=== PATIENT | male | born 1970 | race African-American/Black ===

== ENCOUNTER 2016-07-06 16:15 | Observation (INO) | payer BC, OTHER ==
[~2016-07-06] VITALS: Ht 185.4 cm; Wt 120.8 kg
[~2016-07-06 16:15] MED LIST: ALBU1AER9 INH; ASPI81TA28 PO; ATOR-54 PO; BUPR-79 PO; CELE1CAP30 PO; CHOL1000 PO; GABA1CAP4 PO; GLC/500 PO; HYDR25TA5 PO; LISI40TA PO; MAGN400T6 PO; MONT1TAB3 PO; MULTTAB58 PO; NRV/10 PO; TRAM-10 PO
[2016-07-06 18:04] LABS: BASO % 0.4 %; BASO ABS # 0.02 K/uL (0-0.2); COMPLETE YES; EOS % 2.4 %; HEMATOCRIT 45.8 % (42-52); LYMPH % 44.7 %; LYMPH ABS # 2.25 K/uL (1.2-3.4); MEAN CELL VOLUME 81.5 fL (80-100); MEAN CORPUSCULAR HEMOGLOBIN 27.8 pg (25-34); MEAN CORPUSCULAR HGB CONC 34.1 g/dl (32-36); MEAN PLATELET VOLUME 11.6 fL (7.4-10.4); MONO % 12.9 %; NEUT % 39.6 %; PLATELET COUNT 146 K/uL (130-400); RED BLOOD COUNT 5.62 M/uL (4.7-6.1); WHITE BLOOD COUNT 5.03 K/uL (4.8-10.8)
[2016-07-06 18:17] LABS: PROTHROMBIN TIME (PATIENT) 10.7 SECONDS (9.0-12.0)
[2016-07-06] MEDS ORDERED: ALBU18002 INH (18:18)
[2016-07-06 18:22] LABS: BUN/CREATININE RATIO 15.3 (10-20); CALCIUM 9.3 mg/dl (8.5-10.1); CREATININE 1.3 mg/dl (0.60-1.40); POTASSIUM 3.7 mmol/L (3.5-5.1)
--- NOTE | 2016-07-06 18:47 | DIAGNOSTIC IMAGING REPORT ---
SINGLE VIEW CHEST CLINICAL HISTORY: Atypical chest pain. FINDINGS: 2 AP, portable, upright chest radiographs are compared to study dated 01/13/2015. The examination is degraded by portable technique and patient rotation. The heart is top normal for projection. The mediastinal contour is within normal limits. The lungs and pleural spaces are clear. No pneumothorax is seen. The bony thorax is grossly intact. IMPRESSION: No acute cardiopulmonary abnormality. Electronically signed by: Sourav Gates M.D. 07/06/2016 6:45 PM Dictated Date/Time: 07/06/2016 6:44 PM
[2016-07-06] MEDS ORDERED: CYCL10TA6 PO (19:23)
[2016-07-06] MEDS ORDERED: CETI10TA84 PO (19:23)
[2016-07-06] MEDS ORDERED: MECL1TAB42 PO (19:23)
--- NOTE | 2016-07-06 19:32 | History and Physical ---
History & Physical Date & Time of Service: Jul 06, 2016 at 19:31 . Chief Complaint: chest pain . Primary Care Physician: Denisse Jaquez . History of Present Illness Source: patient, clinic records, hospital records 46 YO male followed by Dr. Norman and Denisse Jaquez PA-C for Family Medicine. History of minimal CAD per cath 2008, hypertension, dyslipidemia, DM, and other problems noted below. Has been experiencing chest pressure + dyspnea on exertion for last month. Early this morning he experienced chest pain at rest. CP described as midsternal pressure that seemed to radiate towards both sides. Associated with SOB. No nausea or vomiting. He did not try any medications for relief. Symptoms lasted about 10 min. . Past Medical/Surgical History Chronic Medical Problems: (1) Asthma, mild intermittent Status: Chronic (2) Coronary artery disease Permanent Comment: minimal disease per cath [facility] 12/06/08 Status: Chronic (3) Depression Status: Chronic (4) DM type 2 (diabetes mellitus, type 2) Status: Chronic (5) Dyslipidemia Status: Chronic (6) HTN (hypertension) Status: Chronic (7) Multiple sclerosis Status: Chronic (8) Obesity (BMI 30-39.9) Status: Chronic (9) Osteoarthritis Status: Chronic Surgical Problems: (1) H/O arthroscopic knee surgery Status: Chronic (2) S/P cardiac cath Permanent Comment: 2008- minimal luminal irregularities LAD without obstructive disease Status: Chronic . Family History FATHER Hypertension CHF (congestive heart failure) MOTHER Hypertension MGM Stroke PGM Stroke Social History Smoking Status: Never Smoker Alcohol Use: occasionally Drug Use: none Marital Status: Housing status: lives with family Occupational Status: employed Immunizations History of Influenza Vaccine: N/A History of Tetanus Vaccine?: Unknown Tetanus Immunization Date: Sep 02, 2008 History of Pneumococcal: No History of Hepatitis B Vaccine: Yes Allergies Coded Allergies: No Known Allergies (Verified , NKA, 07/06/16) Home Medications Scheduled Amlodipine Besylate (Amlodipine Besylate), 10 MG PO DAILY Aspirin (Aspirin Ec), 81 MG PO DAILY Atorvastatin (Lipitor), 1 TAB PO DAILY Bupropion (Wellbutrin Sr), 150 MG PO BID Celecoxib (Celecoxib), 200 MG PO BID Cetirizine (Zyrtec), 10 MG PO DAILY Cholecalciferol (Vitamin D3), 1,000 UNIT PO DAILY Gabapentin (Gabapentin), 900 MG PO TID Hydrochlorothiazide (Hydrochlorothiazide), 25 MG PO DAILY Lisinopril (Zestril), 40 MG PO DAILY Magnesium Oxide (Mag-Ox), 400 MG PO DAILY Metformin Hcl (Glucophage), 500 MG PO BID Montelukast Sodium (Singulair), 10 MG PO QAM Scheduled PRN Albuterol Sulfate (Proair Respiclick), 2 PUFFS INH QID PRN for SOB/Wheezing Cyclobenzaprine Hcl (Flexeril), 10 MG PO HS PRN for Muscle Spasms Meclizine Hcl (Meclizine Hcl), 12.5-25 TAB PO TID PRN for Dizziness or Vertigo Tramadol (Ultram), 50 MG PO Q6H PRN for Pain Review of Systems Constitutional: No fever, No weight loss Eyes: + diplopia, + problem reported (chronic visual changes left eye attributed to MS) ENT: + nasal symptoms, No hearing loss, No sore throat Respiratory: + dyspnea on exertion, No cough, No wheezing Cardiovascular: + problem reported (as noted above) Abdomen: No GI bleeding, No diarrhea, No nausea, No pain, No vomiting Musculoskeletal: + joint pain Genitourinary - Male: No dysuria, No hematuria Neurologic: + weakness (weakness LLE attributed to MS) Endocrine: No excessive thirst, No excessive urination Hematologic / Lymphatic: No abnormal bleeding/bruising, No swollen lymph nodes Integumentary: No itch, No new/changing skin lesions, No rash Physical Exam Vital Signs Date Time Temp Pulse Resp B/P Pulse Ox O2 Delivery O2 Flow Rate FiO2 07/06/16 18:40 58 18 151/106 95 Room Air 07/06/16 17:41 64 07/06/16 17:35 94 Room Air 07/06/16 17:21 58 16 149/94 94 Room Air 07/06/16 17:21 94 Room Air 07/06/16 16:31 36.7 64 18 171/122 95 Room Air General Appearance: WD/WN, no apparent distress Head: normocephalic, atraumatic Eyes: normal inspection, PERRL, EOMI, sclerae normal, + pertinent finding ( conjunctivae pink) ENT: normal ENT inspection, hearing grossly normal, pharynx normal Neck: supple, no adenopathy, thyroid normal, no JVD, trachea midline Respiratory/Chest: lungs clear, no respiratory distress, no accessory muscle use Cardiovascular: regular rate, rhythm, no edema, no gallop, no JVD, no murmur, normal peripheral pulses Abdomen/GI: normal bowel sounds, non tender, soft, no organomegaly Extremities/Musculoskelatal: normal inspection, no calf tenderness, normal capillary refill Neurologic/Psych: electric relay tester II-XII nml as tested (PERRL, EOMI), alert, normal mood/ affect, oriented x 3 Skin: normal color, warm/dry, no rash Lymphatic: no adenopathy Diagnostics Laboratory Results Results Past 24 Hours Test 07/06/16 17:49 07/06/16 17:58 Range/Units White Blood Count 5.03 4.8-10.8 K/uL Red Blood Count 5.62 4.7-6.1 M/uL Hemoglobin 15.6 14.0-18.0 g/dL Hematocrit 45.8 42-52 % Mean Corpuscular Volume 81.5 80-100 fL Mean Corpuscular Hemoglobin 27.8 25-34 pg Mean Corpuscular Hemoglobin Concent 34.1 32-36 g/dl Platelet Count 146 130-400 K/uL Mean Platelet Volume 11.6 7.4-10.4 fL Neutrophils (%) (Auto) 39.6 % Lymphocytes (%) (Auto) 44.7 % Monocytes (%) (Auto) 12.9 % Eosinophils (%) (Auto) 2.4 % Basophils (%) (Auto) 0.4 % Neutrophils # (Auto) 1.99 1.4-6.5 K/uL Lymphocytes # (Auto) 2.25 1.2-3.4 K/uL Monocytes # (Auto) 0.65 0.11-0.59 K/uL Eosinophils # (Auto) 0.12 0-0.5 K/uL Basophils # (Auto) 0.02 0-0.2 K/uL RDW Standard Deviation 42.3 36.4-46.3 fL RDW Coefficient of Variation 14.3 11.5-14.5 % Immature Granulocyte % (Auto) 0.0 % Immature Granulocyte # (Auto) 0.00 0.00-0.02 K/uL Prothrombin Time 10.7 9.0-12.0 SECONDS Prothromb Time International Ratio 1.0 0.9-1.1 Activated Partial Thromboplast Time 25.0 21.0-31.0 SECONDS Partial Thromboplastin Ratio 1.0 Sodium Level 142 136-145 mmol/L Potassium Level 3.7 3.5-5.1 mmol/L Chloride Level 104 98-107 mmol/L Carbon Dioxide Level 30 21-32 mmol/L Anion Gap 8.0 3-11 mmol/L Blood Urea Nitrogen 20 7-18 mg/dl Creatinine 1.30 0.60-1.40 mg/dl Est Creatinine Clear Calc Drug Dose 103.1 ml/min Estimated GFR () 75.8 Estimated GFR (Non- 65.4 BUN/Creatinine Ratio 15.3 10-20 Random Glucose 69 70-99 mg/dl Calcium Level 9.3 8.5-10.1 mg/dl Bedside Troponin I 0.000 0-0.045 ng/ml Diagnostic Radiology SINGLE VIEW CHEST IMPRESSION: No acute cardiopulmonary abnormality. Electronically signed by: Sourav Gates M.D. 07/06/2016 6:45 PM . EKG EKG performed at 16:34 reviewed and demonstrated NSR at 70 / minute, no acute ST or T-wave abnormalities. . Impression Assessment and Plan CHEST PAIN Exertional CP + dyspnea x 1 month. CP at rest this morning. Multiple risk factors for cardiovascular disease. Cardiac cath 2008 demonstrated minimal CAD. Check serial cardiac markers. Consult Cardiology. HYPERTENSION Continue amlodipine, lisinopril, HCTZ. DM TYPE 2 Well-controlled. Check Hgb A1-C. Hold metformin. Insulin coverage PRN. DYSLIPIDEMIA Check lipid profile. Continue atorvastatin. MULTIPLE SCLEROSIS Stable. Follow-up with Neuro. VTE PROPHYLAXIS SQ enoxaparin. RESUSCITATION STATUS Full code. DISPOSITION Observation status on Telemetry Unit. Expected discharge to home. Family Medicine follow-up with Dr. Norman. . VTE Prophylaxis Given or contraindicated: Enoxaparin (Lovenox)SQ
[2016-07-06] MEDS ORDERED: ACETAMINOPHEN 325 MG TAB PO PRN (19:45)
[2016-07-06] MEDS ORDERED: NITROGLYCERIN 0.4 MG SL PER TAB CHARGE SL PRN (19:45)
[2016-07-06] MEDS ORDERED: MAGNESIUM HYDROXIDE SUSP 30 ML UDC PO PRN (19:45)
[2016-07-06] MEDS ORDERED: ONDANSETRON INJ 2 MG/ML 2 ML VIAL IV PRN (19:45)
[2016-07-06] MEDS ORDERED: ENOXAPARIN 40 MG/0.4 ML SYR SC SCH (21:00)
[2016-07-06] MEDS ORDERED: IV FLUIDS COMPLETED PRN (21:00)
[2016-07-06] MEDS ORDERED: TRAMADOL HCL 50 MG TAB PO PRN (21:30)
[2016-07-06] MEDS ORDERED: MECLIZINE HCL 12.5 MG TAB PO PRN (21:30)
[2016-07-06] MEDS ORDERED: ASPIRIN 81 MG CHEW PO STA (21:35)
[2016-07-06 22:04] VITALS: BP_SYST 137; BP_SYST 153; BP_DIAS 87; BP_DIAS 94
[2016-07-06] MEDS: NITROGLYCERIN OINT 2% 1GM PACKET EXT SCH (22:39)
[2016-07-07] VITALS (7 sets, daily range): BP systolic 104–169; BP diastolic 46–94; PULSE 54–70; TEMP 36.5–36.7; O2SAT 94–98; Ht 185.4 cm; Wt 120.8 kg
--- NOTE | 2016-07-07 00:59 | EMERGENCY ROOM VISIT NOTE ---
History Report prepared by Denice: Tori Teran Under the Supervision of: Dr. Best Ramírez M.D. First contact with patient: 17:22 Chief Complaint: CARDIAC ASSESSMENT Stated Complaint: MS, BEAR/TUG FEELING, FATIGUE Nursing Triage Summary: recently diagnosed with MS nov, last night he awoke and felt like something was squeezing his chest, pt was unable to move for 5-10 mins, called neurologist office and was told that it was an "MS Bear Hug" pt neurologist is Dr Collins, sent pt to er History of Present Illness The patient is a 46 year old male who presents to the Emergency Room with complaints of an episode of central chest pain that occurred at 3AM this morning. The patient describes the pain as a pressure and states that he was short of breath during the episode. His symptoms lasted about 10 minutes before resolving. The patient states that he has been getting some chest discomfort with exertion, especially walking up the stairs at work, for the past several months. The discomfort does not last long. Per , he has had a few cardiac work-ups in the past, most recently about 3 years ago. He has not had any recent stress tests. Today, the patient's called Dr. Collins's office regarding his symptoms. The patient was diagnosed with MS this past April and was told to call the office if he ever had a bear hugging sensation in his chest. The patient was referred to the emergency room and said to have the physician seeing him to constant Dr. Collins. He is not currently on steroids for MS. The patient has some left leg discomfort which has been present since his MS diagnosis, but denies any new swelling. Denies fever, diaphoresis, cold- symptoms, abdominal pain, or other complaints. Past medical history includes diabetes and hypertension. He does not have a history of smoking. The patient's father has a history of heart disease and likely had heart disease around the patient's age, although he was not diagnosed until later in his life because he was not seeing a doctor regularly. Source of History: patient, spouse/significant other Onset: 3AM this morning Position: chest (central) Quality: pressure Timing: other (episode) Associated Symptoms: + SOB, No abdominal pain, No diaphoresis, No fevers Review of Systems See HPI for pertinent positives & negatives. A total of 10 systems reviewed and were otherwise negative. Past Medical & Surgical Medical Problems: (1) Asthma, mild intermittent (2) Chest pain (3) Depression (4) DM type 2 (diabetes mellitus, type 2) (5) Dyslipidemia (6) HTN (hypertension) (7) Multiple sclerosis (8) Nonobstructive CAD (9) Obesity (BMI 30-39.9) (10) Osteoarthritis Surgical Problems: (1) H/O arthroscopic knee surgery (2) S/P cardiac cath Family History Cancer Diabetes mellitus Heart disease Hypertension Lung disease Social History Smoking Status: Never Smoker Alcohol Use: occasionally Drug Use: none Marital Status: Housing Status: lives with family Occupation Status: employed Current/Historical Medications Scheduled Amlodipine Besylate (Amlodipine Besylate), 10 MG PO DAILY Aspirin (Aspirin Ec), 81 MG PO DAILY Atorvastatin (Lipitor), 1 TAB PO DAILY Bupropion (Wellbutrin Sr), 150 MG PO BID Celecoxib (Celecoxib), 200 MG PO BID Cetirizine (Zyrtec), 10 MG PO DAILY Cholecalciferol (Vitamin D3), 1,000 UNIT PO DAILY Gabapentin (Gabapentin), 900 MG PO TID Hydrochlorothiazide (Hydrochlorothiazide), 25 MG PO DAILY Lisinopril (Zestril), 40 MG PO DAILY Magnesium Oxide (Mag-Ox), 400 MG PO DAILY Metformin Hcl (Glucophage), 500 MG PO BID Montelukast Sodium (Singulair), 10 MG PO QAM Scheduled PRN Albuterol Sulfate (Proair Respiclick), 2 PUFFS INH QID PRN for SOB/Wheezing Cyclobenzaprine Hcl (Flexeril), 10 MG PO HS PRN for Muscle Spasms Meclizine Hcl (Meclizine Hcl), 12.5-25 TAB PO TID PRN for Dizziness or Vertigo Tramadol (Ultram), 50 MG PO Q6H PRN for Pain Allergies Coded Allergies: No Known Allergies (Verified , NKA, 07/06/16) Physical Exam Vital Signs Date Time Temp Pulse Resp B/P Pulse Ox O2 Delivery O2 Flow Rate FiO2 07/06/16 18:40 58 18 151/106 95 Room Air 07/06/16 17:41 64 07/06/16 17:35 94 Room Air 07/06/16 17:21 58 16 149/94 94 Room Air 07/06/16 17:21 94 Room Air 07/06/16 16:31 36.7 64 18 171/122 95 Room Air Physical Exam Constitutional: Vital signs reviewed. Eyes: Pupils are equal round reactive to light. Conjunctiva are noninjected. ENT: Pharynx is clear without erythema or exudate. Mucous membranes are moist. Neck supple without meningeal signs. Respiratory: Clear to auscultation bilaterally. Breath sounds are equal bilaterally. Cardiovascular: Regular rate and rhythm. No rubs or gallops. GI: Soft, nondistended and nontender. Bowel sounds are present. Musculoskeletal: No peripheral edema. No lower extremity tenderness. Integumentary: No cyanosis. Neurological: The patient is awake and alert. No focal deficits. Psychiatric: Normal affect. Medical Decision & Procedures ER Provider Diagnostic Interpretation: X-ray results as stated below per interpretation by me and the radiologist: SINGLE VIEW CHEST CLINICAL HISTORY: Atypical chest pain. FINDINGS: 2 AP, portable, upright chest radiographs are compared to study dated 01/13/2015. The examination is degraded by portable technique and patient rotation. The heart is top normal for projection. The mediastinal contour is within normal limits. The lungs and pleural spaces are clear. No pneumothorax is seen. The bony thorax is grossly intact. IMPRESSION: No acute cardiopulmonary abnormality. Electronically signed by: Sourav Gates M.D. 07/06/2016 6:45 PM Dictated Date/Time: 07/06/2016 6:44 PM Laboratory Results 07/06/16 17:49 Red Blood Count 5.62, Mean Corpuscular Volume 81.5, Mean Corpuscular Hemoglobin 27.8, Mean Corpuscular Hemoglobin Concent 34.1, Mean Platelet Volume 11.6, Neutrophils (%) (Auto) 39.6, Lymphocytes (%) (Auto) 44.7, Monocytes (%) (Auto) 12.9, Eosinophils (%) (Auto) 2.4, Basophils (%) (Auto) 0.4, Neutrophils # (Auto ) 1.99, Lymphocytes # (Auto) 2.25, Monocytes # (Auto) 0.65, Eosinophils # (Auto ) 0.12, Basophils # (Auto) 0.02 07/06/16 17:49 Test 07/06/16 17:49 07/06/16 17:58 White Blood Count 5.03 K/uL (4.8-10.8) Red Blood Count 5.62 M/uL (4.7-6.1) Hemoglobin 15.6 g/dL (14.0-18.0) Hematocrit 45.8 % (42-52) Mean Corpuscular Volume 81.5 fL (80-100) Mean Corpuscular Hemoglobin 27.8 pg (25-34) Mean Corpuscular Hemoglobin Concent 34.1 g/dl (32-36) Platelet Count 146 K/uL (130-400) Mean Platelet Volume 11.6 fL (7.4-10.4) Neutrophils (%) (Auto) 39.6 % Lymphocytes (%) (Auto) 44.7 % Monocytes (%) (Auto) 12.9 % Eosinophils (%) (Auto) 2.4 % Basophils (%) (Auto) 0.4 % Neutrophils # (Auto) 1.99 K/uL (1.4-6.5) Lymphocytes # (Auto) 2.25 K/uL (1.2-3.4) Monocytes # (Auto) 0.65 K/uL (0.11-0.59) Eosinophils # (Auto) 0.12 K/uL (0-0.5) Basophils # (Auto) 0.02 K/uL (0-0.2) RDW Standard Deviation 42.3 fL (36.4-46.3) RDW Coefficient of Variation 14.3 % (11.5-14.5) Immature Granulocyte % (Auto) 0.0 % Immature Granulocyte # (Auto) 0.00 K/uL (0.00-0.02) Prothrombin Time 10.7 SECONDS (9.0-12.0) Prothromb Time International Ratio 1.0 (0.9-1.1) Activated Partial Thromboplast Time 25.0 SECONDS (21.0-31.0) Partial Thromboplastin Ratio 1.0 Anion Gap 8.0 mmol/L (3-11) Est Creatinine Clear Calc Drug Dose 103.1 ml/min Estimated GFR () 75.8 Estimated GFR (Non- 65.4 BUN/Creatinine Ratio 15.3 (10-20) Calcium Level 9.3 mg/dl (8.5-10.1) Bedside Troponin I 0.000 ng/ml (0-0.045) Laboratory results as reviewed by me. ECG Indication: chest pain Rate (beats per minute): 67 Rhythm: normal sinus Findings: other (some T wave inversion and ST segment downsloping in lead 3) Comparison ECG Date: January 2012 Change: no significant change ED Course 1724: The patient was evaluated in room A10. A complete history and physical exam was performed. 1734: I discussed the case with Dr. Karina Naidu Neurology. He agrees that it does not sound MS related. 1824: I talked to the patient ab out his test results and the treatment plan. He was agreeable. 1917: I discussed the case with Dr. Stepan Naidu Hospitalist. The patient will be evaluated for further management. Medical Decision This is a 46-year-old male presents with chest pain. Differential diagnosis includes unstable angina, NC, pleurisy, GERD, MS hug. I did perform a limited focused review of portions of the patient's old chart on the electronic medical record. The patient has had no recent pertinent visits to this hospital. I did evaluate the patient as noted above. Patient is presenting with chest pain he describes as pressure in the middle of his chest. He is short of breath with it. He has had it with exertion over the past several months. His symptoms do not sound like an MS hug as he does not have symptoms radial around his thorax. He does have significant cardiac risk factors. Currently he is not having any chest discomfort. IV access was established. The patient was placed on a continuous campus monitor. I did order and personally review the patient's 12-lead EKG and chest x-ray as described above. I did order and review the patient's blood work as noted in the electronic medical record. Troponin is negative. I did discuss the test results with the patient. I did discuss the case with Dr. Collins who agreed with me that his symptoms seem more cardiac than related to his MS. I did recommend hospitalization for repeat cardiac enzymes and further workup. I did discuss case with the hospitalist and rn field case manager. Consults Time Called: 1730 Consulting Physician: Dr. Karina Naidu Neurology Returned Call: 1734 I discussed the case with him. He agrees that it does not sound MS related. Additional Consults: Time Called: 1824 Consulted Physician: Dr. Stepan Naidu Hospitalist Returned Call: 1917 Additional Comments: I discussed the case with him. The patient will be evaluated for further management. Impression Primary Impression: Exertional chest pain Scribe Attestation The scribe's documentation has been prepared under my direct and personally reviewed by me in its entirety. I confirm that the note above accurately reflects all work, treatment, procedures, and medical decision making performed by me. Departure Information Dispostion Being Evaluated By Hospitalist Referrals Denisse Jaquez (PCP) Patient Instructions My [facility]
[2016-07-07] MEDS: NITROGLYCERIN OINT 2% 1GM PACKET EXT SCH ×3 (04:26→14:59)
[2016-07-07 06:39] LABS: BLOOD UREA NITROGEN 21 mg/dl (7-18); BUN/CREATININE RATIO 17.1 (10-20); CALCIUM 8.9 mg/dl (8.5-10.1); CARBON DIOXIDE 29 mmol/L (21-32); CHLORIDE 105 mmol/L (98-107); GLUCOSE 86 mg/dl (70-99); POTASSIUM 3.5 mmol/L (3.5-5.1); SODIUM 142 mmol/L (136-145)
[2016-07-07 06:44] LABS: CHOLESTEROL 137 mg/dl (0-200); CHOLESTEROL/HDL RATIO 3.4; HDL CHOLESTEROL 40 mg/dl; LDL CHOLESTEROL CALCULATED 71 mg/dl; TRIGLYCERIDES 128 mg/dl (0-150); VERY LOW DENSITY LIPOPROT CALC 26 mg/dl
[2016-07-07 07:00] LABS: ESTIMATED AVERAGE GLUCOSE 126 mg/dl; HA1C FLAG Normal (Normal)
[2016-07-07] MEDS: GABAPENTIN 300 MG CAP PO SCH ×2 (08:09→15:00)
[2016-07-07] MEDS ORDERED: ATORVASTATIN 20 MG TAB PO SCH (09:00)
[2016-07-07] MEDS ORDERED: BuPROPion SR 150 MG TABCR PO SCH (09:00)
[2016-07-07] MEDS ORDERED: HYDROCHLOROTHIAZIDE 25 MG TAB PO SCH (09:00)
[2016-07-07] MEDS ORDERED: AMLODIPINE BESYLATE 5 MG TAB PO SCH (09:00)
[2016-07-07] MEDS ORDERED: LISINOPRIL 40 MG TAB PO SCH (09:00)
[2016-07-07] MEDS ORDERED: ASPIRIN 81 MG ECTAB PO SCH (09:00)
[2016-07-07] MEDS ORDERED: MONTELUKAST SOD 10 MG TAB PO SCH (09:00)
[2016-07-07] MEDS ORDERED: MAGNESIUM OXIDE 400 MG TAB PO SCH (09:00)
[2016-07-07] MEDS ORDERED: CETIRIZINE HCL 10 MG TAB PO SCH (09:00)
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
[2016-07-07] MEDS ORDERED: PERFLUTREN LIPID MICROSPHERE (DEFINITY) IV ONE (16:01)
--- NOTE | 2016-07-07 16:56 | Progress Note ---
Internal Med Progress Note Date of Service: Jul 07, 2016. Provider Documentation: SUBJECTIVE: Patient is lying in his bed and is in no apparent distress. Remains chest pain free. No SOB. No other new change or complaint. so far. OBJECTIVE: Vital Signs-as noted below Examination: General Appearance: WD/WN, Lying in his and is in no apparent distress Head: normocephalic, atraumatic Eyes: normal inspection, PERRL, EOMI, sclerae normal, ENT: normal ENT inspection, hearing grossly normal, pharynx normal Neck: supple, no adenopathy, thyroid normal, no JVD, trachea midline Respiratory/Chest: lungs clear, no respiratory distress, no accessory muscle use Cardiovascular: regular rate, rhythm, no edema, no gallop, no JVD, no murmur, normal peripheral pulses Abdomen/GI: normal bowel sounds, non tender, soft, no organomegaly Extremities/Musculoskeletal: normal inspection, no calf tenderness, normal capillary refill 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 ASSESSMENT & PLAN: Chest Pain R/O ACS: Exertional CP + dyspnea x 1 month.has multiple cardiac risk factors. Cardiac cath 2008 demonstrated minimal CAD. -Serial Cardiac enzymes are negative so far -Consult Cardiology reviewed. -Will undergo Stress Echo. Hypertension: BP has been stable. -Continue amlodipine, lisinopril, HCTZ. Diabetes Type II: Well-controlled. -Hgb A1-C is 6.0. -Holding metformin. -Insulin coverage PRN. Dyslipidemia: lipid profile shows HDL 2.0 & LDL 71.. -Continue atorvastatin. Multiple Sclerosis: Stable. -Follow-up with Neuro. VTE Prophylaxis: Sq Lovenox. RESUSCITATION STATUS: Full Code. Disposition: Observation status on Telemetry Unit. Expected discharge to home. Family Medicine follow-up with Dr. Norman. . Vital Signs: Date Time Temp Pulse Resp B/P Pulse Ox O2 Delivery O2 Flow Rate FiO2 07/07/16 16:00 Room Air 07/07/16 12:00 Room Air 07/07/16 11:36 36.5 70 24 122/77 94 Room Air 07/07/16 08:00 Room Air 07/07/16 07:52 36.5 54 20 123/74 97 Room Air 07/07/16 04:35 36.6 65 18 104/68 95 Room Air 104/46 07/07/16 04:33 120/84 122/84 07/07/16 04:00 Room Air 07/07/16 00:33 36.5 57 16 169/94 98 Room Air 147/89 07/07/16 00:27 36.7 57 18 160/88 97 Room Air 141/88 07/07/16 00:00 Room Air 07/06/16 22:04 137/87 153/94 07/06/16 20:30 59 18 151/114 96 07/06/16 18:40 58 18 151/106 95 Room Air 07/06/16 17:41 64 07/06/16 17:35 94 Room Air 07/06/16 17:21 58 16 149/94 94 Room Air 07/06/16 17:21 94 Room Air Lab Results: Results Past 24 Hours Test 07/06/16 17:49 07/06/16 17:58 07/07/16 00:01 07/07/16 05:46 Range/Units White Blood Count 5.03 4.8-10.8 K/uL Red Blood Count 5.62 4.7-6.1 M/uL Hemoglobin 15.6 14.0-18.0 g/dL Hematocrit 45.8 42-52 % Mean Corpuscular Volume 81.5 80-100 fL Mean Corpuscular Hemoglobin 27.8 25-34 pg Mean Corpuscular Hemoglobin Concent 34.1 32-36 g/dl Platelet Count 146 130-400 K/uL Mean Platelet Volume 11.6 7.4-10.4 fL Neutrophils (%) (Auto) 39.6 % Lymphocytes (%) (Auto) 44.7 % Monocytes (%) (Auto) 12.9 % Eosinophils (%) (Auto) 2.4 % Basophils (%) (Auto) 0.4 % Neutrophils # (Auto) 1.99 1.4-6.5 K/uL Lymphocytes # (Auto) 2.25 1.2-3.4 K/uL Monocytes # (Auto) 0.65 0.11-0.59 K/uL Eosinophils # (Auto) 0.12 0-0.5 K/uL Basophils # (Auto) 0.02 0-0.2 K/uL RDW Standard Deviation 42.3 36.4-46.3 fL RDW Coefficient of Variation 14.3 11.5-14.5 % Immature Granulocyte % (Auto) 0.0 % Immature Granulocyte # (Auto) 0.00 0.00-0.02 K/uL Prothrombin Time 10.7 9.0-12.0 SECONDS Prothromb Time International Ratio 1.0 0.9-1.1 Activated Partial Thromboplast Time 25.0 21.0-31.0 SECONDS Partial Thromboplastin Ratio 1.0 Sodium Level 142 142 136-145 mmol/L Potassium Level 3.7 3.5 3.5-5.1 mmol/L Chloride Level 104 105 98-107 mmol/L Carbon Dioxide Level 30 29 21-32 mmol/L Anion Gap 8.0 8.0 3-11 mmol/L Blood Urea Nitrogen 20 21 7-18 mg/dl Creatinine 1.30 1.20 0.60-1.40 mg/dl Est Creatinine Clear Calc Drug Dose 103.1 104.7 ml/min Estimated GFR () 75.8 83.5 Estimated GFR (Non- 65.4 72.1 BUN/Creatinine Ratio 15.3 17.1 10-20 Random Glucose 69 86 70-99 mg/dl Calcium Level 9.3 8.9 8.5-10.1 mg/dl Bedside Troponin I 0.000 0-0.045 ng/ml Troponin I < 0.015 < 0.015 0-0.045 ng/ml Estimated Average Glucose 126 mg/dl Hemoglobin A1c 6.0 4.5-5.6 % Triglycerides Level 128 0-150 mg/dl Cholesterol Level 137 0-200 mg/dl HDL Cholesterol 40 mg/dl LDL Cholesterol, Calculated 71 mg/dl VLDL Cholesterol, Calculated 26 mg/dl Cholesterol/HDL Ratio 3.4 Test 07/07/16 13:15 Range/Units Troponin I < 0.015 0-0.045 ng/ml
--- NOTE | 2016-07-07 18:16 | Discharge Instructions ---
Discharge Instructions Admission Reason for Admission: Chest Pain Discharge Discharge Diagnosis / Problem: Non- Cardiac Chest Pain Discharge Goals Goal(s): Decrease discomfort, Improve function, Increase independence, Improve disease control, Improve nutritional status, Learn about illness, Diagnostic testing, Therapeutic intervention Activity Recommendations Activity Limitations: resume your previous activity (As Tolerated) Exercise/Sports Limitations: as tolerated May Resume Sexual Activity: when tolerated Shower/Bathe: no limitations Driving or Machine Use: no limitations . Instructions / Follow-Up Instructions / Follow-Up Monitor your blood sugar regularly. Low salt diet. Try to lose weight Follow up with PCP in one week. Current Hospital Diet Patient's current hospital diet: AHA Diet (Heart Healthy), Diabetes Type 2 Diet Discharge Diet Recommended Diet: AHA Diet (Heart Healthy), Diabetes Type 2 Diet Pending Studies Studies pending at discharge: no Laboratory Results Hemoglobin A1c Test 07/07/16 05:46 Range/Units Estimated Average Glucose 126 mg/dl Hemoglobin A1c 6.0 H 4.5-5.6 % Lipid Panel Test 07/07/16 05:46 Range/Units Triglycerides Level 128 0-150 mg/dl Cholesterol Level 137 0-200 mg/dl HDL Cholesterol 40 mg/dl Cholesterol/HDL Ratio 3.4 LDL Cholesterol, Calculated 71 mg/dl Medical Emergencies . Who to Call and When: Medical Emergencies: If at any time you feel your situation is an emergency, please call 911 immediately. . Non-Emergent Contact Non-Emergency issues call your: Primary Care Provider . . "Provider Documentation" section prepared by Avila Parrish. VTE Core Measure Inpt VTE Proph given/why not?: Enoxaparin (Lovenox)SQ
--- NOTE | 2016-07-07 18:18 | Discharge Summary ---
Discharge Summary Admission Date: Jul 06, 2016 at 19:37 Discharge Date: Jul 07, 2016 Discharge Disposition: Home Principal Diagnosis: Non-cardiac Chest pain Secondary Diagnoses/Problems: Diabetes Multiple Sclerosis Hypertension Procedures: Stress Test---> Normal Vaccinations: NONE Consultations: Cardiology Pending Studies/Follow-Up: Follow up with PCP regarding management of HTN Medication Reconciliation Continued Medications: Albuterol Sulfate (Proair Respiclick) 108 Mcg/Act Aer 2 PUFFS INH QID PRN for SOB/Wheezing Amlodipine Besylate (Amlodipine Besylate) 10 Mg Tab 10 MG PO DAILY, #30 Aspirin (Aspirin Ec) 81 Mg Tab 81 MG PO DAILY Atorvastatin (Lipitor) 20 Mg Tab 1 TAB PO DAILY for 90 Days, #90 TAB 1 Refill Bupropion (Wellbutrin Sr) 150 Mg Ertab 150 MG PO BID, TAB Celecoxib (Celecoxib) 200 Mg Cap 200 MG PO BID, #60 Cetirizine (Zyrtec) 10 Mg Tab 10 MG PO DAILY, TAB Cholecalciferol (Vitamin D3) 1,000 Unit Tab 1000 UNIT PO DAILY for 30 Days, #3 TAB 5 Refills Cyclobenzaprine Hcl (Flexeril) 10 Mg Tab 10 MG PO HS PRN for Muscle Spasms, #21 TAB Gabapentin (Gabapentin) 300 Mg Cap 900 MG PO TID, #120 Hydrochlorothiazide (Hydrochlorothiazide) 25 Mg Tab 25 MG PO DAILY, #30 Lisinopril (Zestril) 40 Mg Tab 40 MG PO DAILY, TAB Magnesium Oxide (Mag-Ox) 400 Mg Tab 400 MG PO DAILY, TAB Meclizine Hcl (Meclizine Hcl) 25 Mg Tab 12.5-25 TAB PO TID PRN for Dizziness or Vertigo for 10 Days, TAB Metformin Hcl (Glucophage) 500 Mg Tab 500 MG PO BID, TAB Montelukast Sodium (Singulair) 10 Mg Tab 10 MG PO QAM, TAB Tramadol (Ultram) 50 Mg Tab 50 MG PO Q6H PRN for Pain, TAB Admission Information HPI (per Admitting provider): 46 YO male followed by Dr. Norman and Denisse Jaquez PA-C for Family Medicine. History of minimal CAD per cath 2008, hypertension, dyslipidemia, DM, and other problems noted below. Has been experiencing chest pressure + dyspnea on exertion for last month. Early this morning he experienced chest pain at rest. CP described as midsternal pressure that seemed to radiate towards both sides. Associated with SOB. No nausea or vomiting. He did not try any medications for relief. Symptoms lasted about 10 min. . Physical Exam (per Admitting): General Appearance: WD/WN, no apparent distress Head: normocephalic, atraumatic Eyes: normal inspection, PERRL, EOMI, sclerae normal, + pertinent finding ( conjunctivae pink) ENT: normal ENT inspection, hearing grossly normal, pharynx normal Neck: supple, no adenopathy, thyroid normal, no JVD, trachea midline Respiratory/Chest: lungs clear, no respiratory distress, no accessory muscle use Cardiovascular: regular rate, rhythm, no edema, no gallop, no JVD, no murmur , normal peripheral pulses Abdomen/GI: normal bowel sounds, non tender, soft, no organomegaly Extremities/Musculoskelatal: normal inspection, no calf tenderness, normal capillary refill 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 Cardiac cath 2008 demonstrated minimal CAD. -Serial Cardiac enzymes are negative so far -Consult Cardiology reviewed. -Will undergo Stress Echo. Hypertension: BP has been stable. -Continue amlodipine, lisinopril, HCTZ. Diabetes Type II: Well-controlled. -Hgb A1-C is 6.0. -Holding metformin. -Insulin coverage PRN. Dyslipidemia: lipid profile shows HDL 2.0 & LDL 71.. -Continue atorvastatin. Multiple Sclerosis: Stable. -Follow-up with Neuro. VTE Prophylaxis: Sq Lovenox. RESUSCITATION STATUS: Full Code. Disposition: Observation status on Telemetry Unit. Expected discharge to home. Family Medicine follow-up with Dr. Norman. . Total time spent on discharge = 35 minutes. This includes examination of the patient, discharge planning, medication reconciliation, and communication with other providers. Discharge Instructions Discharge Goals Goal(s): Decrease discomfort, Improve function, Increase independence, Improve disease control, Improve nutritional status, Learn about illness, Diagnostic testing, Therapeutic intervention Activity Recommendations Activity Limitations: resume your previous activity (As Tolerated) Exercise/Sports Limitations: as tolerated May Resume Sexual Activity: when tolerated Shower/Bathe: no limitations Driving or Machine Use: no limitations . Instructions / Follow-Up Instructions / Follow-Up Monitor your blood sugar regularly. Low salt diet. Try to lose weight Follow up with PCP in one week. Current Hospital Diet Patient's current hospital diet: AHA Diet (Heart Healthy), Diabetes Type 2 Diet Discharge Diet Recommended Diet: AHA Diet (Heart Healthy), Diabetes Type 2 Diet Additional Copies To Denisse Jaquez
--- NOTE | 2016-07-07 19:15 | EXERCISE STRESS ECHO ---
*NOTICE TO RECEIVING DEMOCRAT AGENCY This information is strictly Confidential and protected under [place] law. [place] law prohibits you from making any further disclosure of this information unless further disclosure is expressly permitted by the written consent of the person to whom it pertains or is authorized by law. A general authorization for the release of medical or other information is not sufficient for this purpose. Hospital accepts no responsibility if the information is made available to any other person, INCLUDING THE PATIENT. Interpretation Summary * Name: DANI CHIRINOS Study Date: 07/07/2016 03:18 PM BP: 125/88 mmHg * Patient Location: .2E\S\E206\S\1 HR: 107 * : 1970 (M/d/yyyy) Gender: Male Height: 72 in * Age: 46 yrs Ethnicity: AA Weight: 266 lb * Ordering Physician: Best Catherine * Referring Physician: Jamie Collins (MEDICINE) * Performed By: Mignon Hammer RDCS * * Reason For Study: Chest Pain * BSA: 2.4 m2 * The exercise echocardiographic examination is normal without resting left ventricular wall motion abnormalities or inducible ischemia. * Exercise capacity is below average. * -- Conclusions -- * Left ventricular systolic function is normal. * Ejection Fraction = 60-65%. * There is moderate concentric left ventricular hypertrophy. * Resting wall motion: Normal. Stress wall motion: Appropriate increase in Left ventricular systolic function and decrease in cavity size. No stress induced segmental wall motion abnormalities. * Grade I diastolic dysfunction, (abnormal relaxation pattern). * No significant valvular pathology. Procedure Details * ECHOEX, CPT #[id number] * ECHO DOPPLER, CPT #[id number] * ECHO COLOR FLOW, CPT #[id number] * A contrast injection of Definity was performed to improve assessment of LV function. * Contrast was injected into an intravenous site in the right arm. * One vial of Definity ultrasound contrast was diluted in normal saline to a total volume of 10 ml. A total of '4' ml of solution was administered during imaging. * Lot # [id number] of Definity utilized for procedure. * Expiration date 1DEC17. * The attending nurse who injected the contrast agent was MYRIAM Vogel. Left Ventricle * The left ventricle is normal in size. * There is moderate concentric left ventricular hypertrophy. * Ejection Fraction = 60-65%. * Left ventricular systolic function is normal. * Resting wall motion: Normal. Stress wall motion: Appropriate increase in Left ventricular systolic function and decrease in cavity size. No stress induced segmental wall motion abnormalities. * The left ventricular ejection fraction increases normally with stress. The left ventricular end-systolic cavity size reduces post-stress (normal response). The left ventricular wall motion with stress is normal. Right Ventricle * The right ventricle is normal in size and function. Atria * The left atrial size is normal. * Right atrial size is normal. * No ASD detected; PFO is not assessed. Mitral Valve * The mitral valve is normal. * There is no mitral valve stenosis. * Significant mitral regurgitation is absent. Tricuspid Valve * The tricuspid valve is normal. * There is no tricuspid stenosis. * No tricuspid regurgitation. Aortic Valve * The aortic valve is trileaflet. * No hemodynamically significant valvular aortic stenosis. * No aortic regurgitation is present. Pulmonic Valve * The pulmonary valve is inadequately visualized, but the Doppler data is adequate for interpretation. * Trace pulmonic valvular regurgitation. Great Vessels * The aortic root is normal size. Pericardium * There is no pericardial effusion. Stress Parameters * The baseline ECG displays normal sinus rhythm. * Stress ECG: No ST changes. No arrhythmias. * The stress portion of this study was personally supervised by the undersigned interpreting physician. * Rest heart rate was '107' BPM. * Rest blood pressure was '125/88' * Maximum heart rate achieved was 150 bpm. * Maximum heart rate was 86 % of maximum age-predicted heart rate. * Maximum blood pressure was '229/42' * Total exercise time was '06:04' * Maximum treadmill speed was '3.40' miles per hour. * Maximum treadmill elevation was '14.00'% grade. * Normal blood pressure response to exercise. * Exercise stopped due to gate dysfunction. Left Ventricular Diastolic Function * Grade I diastolic dysfunction, (abnormal relaxation pattern). MMode 2D Measurements and Calculations IVSd 1.5 cm IVSs 1.8 cm LVIDd 3.8 cm LVIDs 2.4 cm LVPWd 1.5 cm LVPWs 2.3 cm IVS/LVPW 0.94 FS 36.5 % EDV(Teich) 62.4 ml ESV(Teich) 20.6 ml EF(Teich) 67.0 % EDV(cubed) 55.4 ml ESV(cubed) 14.2 ml EF(cubed) 74.4 % % IVS thick 20.6 % % LVPW thick 47.7 % LV mass(C)d 216.9 grams LV mass(C)dI 90.2 grams/m\S\2 LV mass(C)s 211.9 grams LV mass(C)sI 88.1 grams/m\S\2 SV(Teich) 41.9 ml SI(Teich) 17.4 ml/m\S\2 SV(cubed) 41.2 ml SI(cubed) 17.1 ml/m\S\2 Ao root diam 2.9 cm Ao root area 6.8 cm\S\2 ACS 2.4 cm LA dimension 3.9 cm LA/Ao 1.3 LVAd ap4 29.9 cm\S\2 LVLd ap4 9.2 cm EDV(MOD-sp4) 83.6 ml EDV(sp4-el) 82.6 ml LVAs ap4 15.7 cm\S\2 LVLs ap4 7.9 cm ESV(MOD-sp4) 26.3 ml ESV(sp4-el) 26.2 ml EF(MOD-sp4) 68.5 % EF(sp4-el) 68.3 % LVAd ap2 25.3 cm\S\2 LVLd ap2 8.4 cm EDV(MOD-sp2) 62.8 ml EDV(sp2-el) 65.0 ml LVAs ap2 12.6 cm\S\2 LVLs ap2 7.3 cm ESV(MOD-sp2) 18.8 ml ESV(sp2-el) 18.6 ml EF(MOD-sp2) 70.0 % EF(sp2-el) 71.4 % LVLd %diff -9.65 % EDV(MOD-bp) 73.7 ml LVLs %diff -9.38 % ESV(MOD-bp) 23.4 ml EF(MOD-bp) 68.3 % SV(MOD-sp4) 57.3 ml SI(MOD-sp4) 23.8 ml/m\S\2 SV(MOD-sp2) 44.0 ml SI(MOD-sp2) 18.3 ml/m\S\2 SV(MOD-bp) 50.4 ml SI(MOD-bp) 20.9 ml/m\S\2 SV(sp4-el) 56.4 ml SI(sp4-el) 23.4 ml/m\S\2 SV(sp2-el) 46.4 ml SI(sp2-el) 19.3 ml/m\S\2 Doppler Measurements and Calculations MV E max johnny 43.7 cm/sec MV A max johnny 58.2 cm/sec MV E/A 0.75 MV dec time 0.30 sec Ao V2 max 106.7 cm/sec Ao max PG 4.6 mmHg Ao max PG (full) 2.2 mmHg LV V1 max PG 2.3 mmHg LV V1 max 76.2 cm/sec PA V2 max 129.0 cm/sec PA max PG 6.7 mmHg
[2016-10-09] MEDS ORDERED: GLAT1INJ INJ (13:32)
[2016-10-10] MEDS ORDERED: NTRSLP4 SL (14:58)
== END 2016-07-07 18:31 | disposition home or self-care (01) ==
LOC: ENRESERVDT → ENRESERVTM → C.EDB 16:17 → C.2E 19:37
PROVIDERS: ADMIT Hospitalist; ATTEND Emergency Medicine
DX: R07.89 Other chest pain (principal); I25.10 Atherosclerotic heart disease of native coronary artery without angina pectoris; I10 Essential (primary) hypertension; E78.5 Hyperlipidemia, unspecified; E11.9 Type 2 diabetes mellitus without complications; J45.20 Mild intermittent asthma, uncomplicated; G35 Multiple sclerosis; E66.9 Obesity, unspecified; M19.90 Unspecified osteoarthritis, unspecified site; F32.9 Major depressive disorder, single episode, unspecified; Z79.82 Long term (current) use of aspirin; Z82.49 Family history of ischemic heart disease and other diseases of the circulatory system; Z82.3 Family history of stroke

== ENCOUNTER 2016-10-09 12:57 | Observation (INO) | payer OTHER ==
[~2016-10-09] VITALS: Ht 188 cm; Wt 132.9 kg
[~2016-10-09 12:57] MED LIST changes: -ALBU1AER9 INH; -ASPI81TA28 PO; -ATOR-54 PO; -BUPR-79 PO; -CELE1CAP30 PO; -CHOL1000 PO; -GABA1CAP4 PO; -GLC/500 PO; -HYDR25TA5 PO; -LISI40TA PO; -MAGN400T6 PO; +MECL1TAB42 PO; -MONT1TAB3 PO; -MULTTAB58 PO; -NRV/10 PO; -TRAM-10 PO
[2016-10-09] MEDS ORDERED: NITROGLYCERIN 0.4 MG SL PER TAB CHARGE SL STA (13:47)
[2016-10-09] MEDS ORDERED: ONDANSETRON INJ 2 MG/ML 2 ML VIAL IV STA (14:39)
[2016-10-09] MEDS ORDERED: ONDANSETRON INJ 2 MG/ML 2 ML VIAL ONE (14:40)
--- NOTE | 2016-10-09 14:43 | DIAGNOSTIC IMAGING REPORT ---
CHEST ONE VIEW PORTABLE CLINICAL HISTORY: Evaluate for pneumonia. COMPARISON STUDY: Chest radiograph November or 2016. FINDINGS: Lung volumes are normal. There is no pneumothorax or pleural effusion. Cardiomediastinal silhouette is stable. There is no evidence of pulmonary edema. The appearance of the chest is unchanged. IMPRESSION: No acute cardiopulmonary findings. Electronically signed by: Dalton Ascencio M.D. 10/09/2016 2:42 PM Dictated Date/Time: 10/09/2016 2:42 PM
[2016-10-09 14:47] LABS: BASO % 0.1 %; BASO ABS # 0.01 K/uL (0-0.2); COMPLETE YES; EOS % 0.6 %; HEMATOCRIT 45.7 % (42-52); IG% 0.1 %; LYMPH % 11.1 %; LYMPH ABS # 0.87 K/uL (1.2-3.4); MEAN CELL VOLUME 83.5 fL (80-100); MEAN CORPUSCULAR HEMOGLOBIN 27.4 pg (25-34); MEAN CORPUSCULAR HGB CONC 32.8 g/dl (32-36); MEAN PLATELET VOLUME 11.5 fL (7.4-10.4); MONO % 2.2 %; NEUT % 85.9 %; PLATELET COUNT 163 K/uL (130-400); RED BLOOD COUNT 5.47 M/uL (4.7-6.1); WHITE BLOOD COUNT 7.86 K/uL (4.8-10.8)
[2016-10-09 14:56] LABS: PARTIAL THROMBOPLASTIN RATIO 0.9; PROTHROMBIN TIME (PATIENT) 11.2 SECONDS (9.0-12.0)
[2016-10-09] MEDS ORDERED: SODIUM CHLORIDE 0.9% 500ML 500 ML IV STA (15:03)
[2016-10-09 15:06] LABS: BLOOD UREA NITROGEN 19 mg/dl (7-18); BUN/CREATININE RATIO 16.1 (10-20); CALCIUM 9.5 mg/dl (8.5-10.1); CARBON DIOXIDE 33 mmol/L (21-32); CHLORIDE 104 mmol/L (98-107); GLUCOSE 85 mg/dl (70-99); POTASSIUM 3.6 mmol/L (3.5-5.1); SODIUM 144 mmol/L (136-145)
[2016-10-09 15:11] LABS: CKMB/CK RATIO 0.5 (0-3.0)
[2016-10-09] MEDS ORDERED: ONDANSETRON INJ 2 MG/ML 2 ML VIAL IV PRN (16:30)
[2016-10-09] MEDS ORDERED: NITROGLYCERIN 0.4 MG SL PER TAB CHARGE SL PRN (16:30)
[2016-10-09] MEDS ORDERED: ACETAMINOPHEN 325 MG TAB PO PRN (16:30)
[2016-10-09] MEDS ORDERED: ASPIRIN 81 MG CHEW PO STA (16:36)
--- NOTE | 2016-10-09 16:41 | History and Physical ---
History & Physical Date & Time of Service: Oct 09, 2016 at 16:41 Chief Complaint: Chest Pains Primary Care Physician: Denisse Jaquez History of Present Illness Source: patient, family, clinic records, hospital records Patient seen and examined. 46 year old male with PMHx of DM2, HTN, HLD, Asthma, Multiple Sclerosis, and minimal CAD on [facility] in 2008 presents to the ED complaining of chest pain prior to arrival. Patient reports he was sitting at home when he developed substernal chest pain described as "squeezing, something sitting on the chest, and tightness." He states he drove to work and on the way the pain escalated to 10/10 and he started to have associated SOB and radiation of pain to the left arm. He also reports diaphoresis. So patient drove himself to the ED for further evaluation. He denies fevers, chills, URI symptoms, palpitations, nausea, vomiting, diarrhea, dysuria, calf pain and edema. He presented to [facility] in June with similar symptoms but he states they were less intense at that time. He had a negative stress test. He reports taking aspirin daily. He denies any other episodes of chest pain between June and today. He is a lifelong nonsmoker. He reports his father developed heart problems in his 40s. In the ED patient received nitro SL and is now chest pain free. EKG was nonischemic, CXR with negative troponin was negative total CK was 841. He is resting comfortably. He will be observed for further workup and treatment. Past Medical/Surgical History Medical Problems: (1) Asthma, mild intermittent Status: Chronic (2) Coronary artery disease Permanent Comment: minimal disease per cath [facility] 12/06/08 Status: Chronic (3) Depression Status: Chronic (4) DM type 2 (diabetes mellitus, type 2) Status: Chronic (5) Dyslipidemia Status: Chronic (6) HTN (hypertension) Status: Chronic (7) Multiple sclerosis Status: Chronic (8) Obesity (BMI 30-39.9) Status: Chronic (9) Osteoarthritis Status: Chronic Surgical Problems: (1) H/O arthroscopic knee surgery Status: Chronic (2) S/P cardiac cath Permanent Comment: 2008- minimal luminal irregularities LAD without obstructive disease Status: Chronic Family History CHF (congestive heart failure) FATHER Hypertension FATHER MOTHER Stroke MGM PGM Social History Smoking Status: Never Smoker Alcohol Use: none Drug Use: none Marital Status: Housing status: lives with family Occupational Status: employed Immunizations History of Influenza Vaccine: N/A History of Tetanus Vaccine?: Unknown Tetanus Immunization Date: Sep 02, 2008 History of Pneumococcal: No History of Hepatitis B Vaccine: Yes Allergies Coded Allergies: No Known Allergies (Verified , NKA, 10/09/16) Home Medications Scheduled Amlodipine Besylate (Amlodipine Besylate), 10 MG PO DAILY Aspirin (Aspirin Ec), 81 MG PO DAILY Atorvastatin (Lipitor), 1 TAB PO DAILY Bupropion (Wellbutrin Sr), 150 MG PO BID Celecoxib (Celecoxib), 200 MG PO BID Cetirizine (Zyrtec), 10 MG PO DAILY Cholecalciferol (Vitamin D3), 1,000 UNIT PO DAILY Gabapentin (Gabapentin), 900 MG PO TID Glatiramer Acetate (Copaxone), 40 MG INJ MWF Hydrochlorothiazide (Hydrochlorothiazide), 25 MG PO DAILY Lisinopril (Zestril), 40 MG PO DAILY Magnesium Oxide (Mag-Ox), 400 MG PO DAILY Metformin Hcl (Glucophage), 500 MG PO BID Montelukast Sodium (Singulair), 10 MG PO QAM Scheduled PRN Albuterol Sulfate (Proair Respiclick), 2 PUFFS INH QID PRN for SOB/Wheezing Cyclobenzaprine Hcl (Flexeril), 10 MG PO HS PRN for Muscle Spasms Nitroglycerin (Nitrostat), 0.4 MG SL DAILY PRN for chest pain Tramadol (Ultram), 50 MG PO Q6H PRN for Pain Review of Systems Constitutional: + sweats, No chills, No fever Eyes: No worsening of vision ENT: No nasal symptoms Respiratory: + shortness of breath, No cough Cardiovascular: + chest pain, No edema, No palpitations Abdomen: No constipation, No diarrhea, No nausea, No pain, No vomiting Musculoskeletal: No calf pain, No swelling Genitourinary - Male: No dysuria Neurologic: No numbness/tingling, No vertigo Psychiatric: No depression symptoms Endocrine: No fatigue Hematologic / Lymphatic: No abnormal bleeding/bruising, No clotting problems Integumentary: No itch, No rash Allergic / Immunologic: No environmental allergies Physical Exam Vital Signs Date Time Temp Pulse Resp B/P Pulse Ox O2 Delivery O2 Flow Rate FiO2 10/09/16 14:47 73 14 99/52 97 Room Air 10/09/16 14:37 90 109/91 10/09/16 14:34 66 130/76 10/09/16 14:13 75 20 105/67 98 Room Air 10/09/16 14:06 63 10/09/16 13:55 Room Air 10/09/16 13:03 36.7 72 20 148/87 98 Room Air General Appearance: + pertinent finding (Very pleasant WD/WN 46 year old male lying in bed in NAD with at bedside ) Head: normocephalic, atraumatic Eyes: PERRL, EOMI, sclerae normal ENT: hearing grossly normal, pharynx normal Neck: supple, no JVD Respiratory/Chest: chest non-tender, lungs clear, normal breath sounds, no respiratory distress, no accessory muscle use Cardiovascular: regular rate, rhythm, no edema, no gallop, no JVD, no murmur, normal peripheral pulses Abdomen/GI: normal bowel sounds, non tender, soft Back: normal inspection, no muscle spasm Extremities/Musculoskelatal: no calf tenderness, normal capillary refill, no pedal edema Neurologic/Psych: no motor/sensory deficits, alert, oriented x 3 Skin: normal color, warm/dry, no rash Lymphatic: no adenopathy Diagnostics Laboratory Results Results Past 24 Hours Test 10/09/16 14:20 Range/Units White Blood Count 7.86 4.8-10.8 K/uL Red Blood Count 5.47 4.7-6.1 M/uL Hemoglobin 15.0 14.0-18.0 g/dL Hematocrit 45.7 42-52 % Mean Corpuscular Volume 83.5 80-100 fL Mean Corpuscular Hemoglobin 27.4 25-34 pg Mean Corpuscular Hemoglobin Concent 32.8 32-36 g/dl Platelet Count 163 130-400 K/uL Mean Platelet Volume 11.5 7.4-10.4 fL Neutrophils (%) (Auto) 85.9 % Lymphocytes (%) (Auto) 11.1 % Monocytes (%) (Auto) 2.2 % Eosinophils (%) (Auto) 0.6 % Basophils (%) (Auto) 0.1 % Neutrophils # (Auto) 6.75 1.4-6.5 K/uL Lymphocytes # (Auto) 0.87 1.2-3.4 K/uL Monocytes # (Auto) 0.17 0.11-0.59 K/uL Eosinophils # (Auto) 0.05 0-0.5 K/uL Basophils # (Auto) 0.01 0-0.2 K/uL RDW Standard Deviation 42.0 36.4-46.3 fL RDW Coefficient of Variation 13.8 11.5-14.5 % Immature Granulocyte % (Auto) 0.1 % Immature Granulocyte # (Auto) 0.01 0.00-0.02 K/uL Prothrombin Time 11.2 9.0-12.0 SECONDS Prothromb Time International Ratio 1.0 0.9-1.1 Activated Partial Thromboplast Time 23.8 21.0-31.0 SECONDS Partial Thromboplastin Ratio 0.9 Sodium Level 144 136-145 mmol/L Potassium Level 3.6 3.5-5.1 mmol/L Chloride Level 104 98-107 mmol/L Carbon Dioxide Level 33 21-32 mmol/L Anion Gap 7.0 3-11 mmol/L Blood Urea Nitrogen 19 7-18 mg/dl Creatinine 1.20 0.60-1.40 mg/dl Est Creatinine Clear Calc Drug Dose 110.9 ml/min Estimated GFR () 83.5 Estimated GFR (Non- 72.1 BUN/Creatinine Ratio 16.1 10-20 Random Glucose 85 70-99 mg/dl Calcium Level 9.5 8.5-10.1 mg/dl Total Creatine Kinase 841 39-308 U/L Creatine Kinase MB 4.4 0.5-3.6 ng/ml Creatine Kinase MB Ratio 0.5 0-3.0 Troponin I < 0.015 0-0.045 ng/ml Diagnostic Radiology CXR Per radiologist read: IMPRESSION: No acute cardiopulmonary findings. EKG NSR 61 BPM, QTc 378 Impression Assessment and Plan 46 year old male presents to the ED complaining of chest pain alleviated by nitro in the ED, initial workup negative CHEST PAIN R/O ACS -Observation in tele -First set of CE negative in ED -Risk factors:minimal CAD on 2008 [facility], HTN, HLD, DM2, family history, obesity -Had negative stress test in June -Serial Ramos and EKGs -Fasting lipid panel in AM -Echo pending to r/o heart wall abnormality -continue Aspirin, Statin -Nitro, prn chest pain -Cardiology consult for further management input appreciated -AHA diet npo aftermidnight for possible stress test -CBC, PRP, Mg daily -VSS stable, monitor in tele DM2 -A1c pending -Hold po diabetic agents -SSI coverage -BSG AC HS -Consistent carbohydrate diet HTN -stable -continue Lisinopril, Amlodipine, HCTZ -monitor in tele HLD -continue statin -lipid panel pending ASTHMA -stable -continue Prn inhaler MULTIPLE SCLEROSIS -continue Copaxone -followup with neurology as scheduled DEPRESSION -continue Wellbutrin DVT PROPHYLAXIS: Sq heparin CODE STATUS: FULL CODE DISPO:observation pending further workup Patient seen in collaboration with Dr. Medeiros VTE Prophylaxis VTE Risk Assessment Done? Y/N: Yes Risk Level: Moderate
[2016-10-09] MEDS ORDERED: GLUCAGON FOR INJ 1 MG VIAL SQ PRN (16:45)
[2016-10-09] MEDS ORDERED: GLUCOSE 10 TABS/TUBE PO PRN (16:45)
[2016-10-09] MEDS ORDERED: TRAMADOL HCL 50 MG TAB PO PRN (16:45)
[2016-10-09] MEDS ORDERED: GLUCOSE 40% GEL 15 GM TUBE PO PRN (16:45)
[2016-10-09] MEDS ORDERED: DEXTROSE 50% 50 ML SYR IV PRN (16:45)
[2016-10-09] MEDS ORDERED: CYCLOBENZAPRINE HCL 10 MG TAB PO PRN (16:45)
[2016-10-09] MEDS ORDERED: ALBUTEROL HFA 8 GM INHALER INH PRN (16:45)
--- NOTE | 2016-10-09 16:59 | Progress Note ---
Progress Note Date of Service Oct 09, 2016. Progress Note ATTENDING ADDENDUM care coordinated with CONSTANTINE Hammer please refer to her notes for full details, I agree with her notes patient seen and examined, records reviewed by myself as well on exam, patient seen resting in bed, watching tv at bedside states his chest pain is about 1-2/10 now relieved after taking nitro no active dyspnea, nausea, dizziness, palpitations no other symptoms VS noted and reviewed oriented x 3 , not in distress, speaks in sentences with no effort nor accessory muscle use normal rate, regular rhythm, no murmurs clear breath sounds bilaterally non distended, soft, nontender no bipedal edema, erythema, warmth no neuro deficits trop <0.015 ekg: non specific t wave depressions on the inferior leads, unchanged compared to 06/2016 ASSESSMENT/PLAN> CHEST PAIN R/O ACS - stress echo in June 2016 non ischemic - chest pain relieved by Nitro - initial troponins negative cardiac markers q6h - ekg in AM - continue Aspirin, Statin, Lisinopril - will consult Cardiology HYPERTENSION - continue Lisinopril other diagnoses and plan of care as per Violette Hammer's notes Chriss Medeiros MD
--- NOTE | 2016-10-09 18:21 | EMERGENCY ROOM VISIT NOTE ---
History Report prepared by Denice: Hamzah Bustillo Under the Supervision of: Dr. Best Ramírez M.D. First contact with patient: 13:36 Chief Complaint: CHEST PAIN Stated Complaint: CHEST PAINS History of Present Illness The patient is a 46 year old male with a history of MS who presents to the Emergency Room with complaints of constant chest pain beginning three and a half hours prior to arrival. He describes the pain as squeezing and currently rates his discomfort as a 9/10 in severity. He states he feels like someone is sitting on his chest. The patient associates shortness of breath and resolved diaphoresis with today's symptoms. He notes his symptoms feel similar to his previous chest pain which she has had occur about once a month. The patient states this episode is worse than his previous. As per , the patient receives steroid injections every 28 days. She notes the patient takes Tramadol for relief. The patient denies a fever, cold symptoms, nausea, and leg pain. 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 A total of 10 systems reviewed and were otherwise negative. Past Medical & Surgical Medical Problems: (1) Asthma, mild intermittent (2) Coronary artery disease (3) Depression (4) DM type 2 (diabetes mellitus, type 2) (5) Dyslipidemia (6) HTN (hypertension) (7) Multiple sclerosis (8) Obesity (BMI 30-39.9) (9) Osteoarthritis Surgical Problems: (1) H/O arthroscopic knee surgery (2) S/P cardiac cath Family History CHF (congestive heart failure) FATHER Hypertension FATHER MOTHER Stroke MGM PGM Social History Smoking Status: Never Smoker Alcohol Use: occasionally Drug Use: none Marital Status: Housing Status: lives with family Occupation Status: employed Current/Historical Medications Scheduled Amlodipine Besylate (Amlodipine Besylate), 10 MG PO DAILY Aspirin (Aspirin Ec), 81 MG PO DAILY Atorvastatin (Lipitor), 1 TAB PO DAILY Bupropion (Wellbutrin Sr), 150 MG PO BID Celecoxib (Celecoxib), 200 MG PO BID Cetirizine (Zyrtec), 10 MG PO DAILY Cholecalciferol (Vitamin D3), 1,000 UNIT PO DAILY Gabapentin (Gabapentin), 900 MG PO TID Glatiramer Acetate (Copaxone), 40 MG INJ MWF Hydrochlorothiazide (Hydrochlorothiazide), 25 MG PO DAILY Lisinopril (Zestril), 40 MG PO DAILY Magnesium Oxide (Mag-Ox), 400 MG PO DAILY Metformin Hcl (Glucophage), 500 MG PO BID Montelukast Sodium (Singulair), 10 MG PO QAM Scheduled PRN Albuterol Sulfate (Proair Respiclick), 2 PUFFS INH QID PRN for SOB/Wheezing Cyclobenzaprine Hcl (Flexeril), 10 MG PO HS PRN for Muscle Spasms Tramadol (Ultram), 50 MG PO Q6H PRN for Pain Allergies Coded Allergies: No Known Allergies (Verified , NKA, 10/09/16) Physical Exam Vital Signs Date Time Temp Pulse Resp B/P Pulse Ox O2 Delivery O2 Flow Rate FiO2 10/09/16 17:23 80 20 100/54 95 Room Air 10/09/16 14:47 73 14 99/52 97 Room Air 10/09/16 14:37 90 109/91 10/09/16 14:34 66 130/76 10/09/16 14:13 75 20 105/67 98 Room Air 10/09/16 14:06 63 10/09/16 13:55 Room Air 10/09/16 13:03 36.7 72 20 148/87 98 Room Air Physical Exam Constitutional: Vital signs reviewed. Eyes: Pupils are equal round reactive to light. Conjunctiva are noninjected. ENT: Pharynx is clear without erythema or exudate. Mucous membranes are moist. Neck supple without meningeal signs. Respiratory: Clear to auscultation bilaterally. Breath sounds are equal bilaterally. Cardiovascular: Regular rate and rhythm. No rubs or gallops. GI: Soft, nondistended and nontender. Bowel sounds are present. Musculoskeletal: No peripheral edema. No lower extremity tenderness. Integumentary: No cyanosis. Neurological: The patient is awake and alert. No focal deficits. Psychiatric: Normal affect. Medical Decision & Procedures ER Provider Diagnostic Interpretation: X-ray results as stated below per interpretation by me and the radiologist: CHEST ONE VIEW PORTABLE CLINICAL HISTORY: Evaluate for pneumonia. COMPARISON STUDY: Chest radiograph November or 2016. FINDINGS: Lung volumes are normal. There is no pneumothorax or pleural effusion. Cardiomediastinal silhouette is stable. There is no evidence of pulmonary edema. The appearance of the chest is unchanged. IMPRESSION: No acute cardiopulmonary findings. Electronically signed by: Dalton Ascencio M.D. 10/09/2016 2:42 PM Laboratory Results 10/09/16 14:20 Red Blood Count 5.47, Mean Corpuscular Volume 83.5, Mean Corpuscular Hemoglobin 27.4, Mean Corpuscular Hemoglobin Concent 32.8, Mean Platelet Volume 11.5, Neutrophils (%) (Auto) 85.9, Lymphocytes (%) (Auto) 11.1, Monocytes (%) (Auto) 2.2, Eosinophils (%) (Auto) 0.6, Basophils (%) (Auto) 0.1, Neutrophils # (Auto) 6.75, Lymphocytes # (Auto) 0.87, Monocytes # (Auto) 0.17, Eosinophils # (Auto) 0.05, Basophils # (Auto) 0.01 10/09/16 14:20 Test 10/09/16 14:20 White Blood Count 7.86 K/uL (4.8-10.8) Red Blood Count 5.47 M/uL (4.7-6.1) Hemoglobin 15.0 g/dL (14.0-18.0) Hematocrit 45.7 % (42-52) Mean Corpuscular Volume 83.5 fL (80-100) Mean Corpuscular Hemoglobin 27.4 pg (25-34) Mean Corpuscular Hemoglobin Concent 32.8 g/dl (32-36) Platelet Count 163 K/uL (130-400) Mean Platelet Volume 11.5 fL (7.4-10.4) Neutrophils (%) (Auto) 85.9 % Lymphocytes (%) (Auto) 11.1 % Monocytes (%) (Auto) 2.2 % Eosinophils (%) (Auto) 0.6 % Basophils (%) (Auto) 0.1 % Neutrophils # (Auto) 6.75 K/uL (1.4-6.5) Lymphocytes # (Auto) 0.87 K/uL (1.2-3.4) Monocytes # (Auto) 0.17 K/uL (0.11-0.59) Eosinophils # (Auto) 0.05 K/uL (0-0.5) Basophils # (Auto) 0.01 K/uL (0-0.2) RDW Standard Deviation 42.0 fL (36.4-46.3) RDW Coefficient of Variation 13.8 % (11.5-14.5) Immature Granulocyte % (Auto) 0.1 % Immature Granulocyte # (Auto) 0.01 K/uL (0.00-0.02) Prothrombin Time 11.2 SECONDS (9.0-12.0) Prothromb Time International Ratio 1.0 (0.9-1.1) Activated Partial Thromboplast Time 23.8 SECONDS (21.0-31.0) Partial Thromboplastin Ratio 0.9 Anion Gap 7.0 mmol/L (3-11) Est Creatinine Clear Calc Drug Dose 110.9 ml/min Estimated GFR () 83.5 Estimated GFR (Non- 72.1 BUN/Creatinine Ratio 16.1 (10-20) Calcium Level 9.5 mg/dl (8.5-10.1) Total Creatine Kinase 841 U/L (39-308) Creatine Kinase MB 4.4 ng/ml (0.5-3.6) Creatine Kinase MB Ratio 0.5 (0-3.0) Troponin I < 0.015 ng/ml (0-0.045) Laboratory results as reviewed by me. Medications Administered Medications (Trade) Dose Ordered Sig/Rudy Route Start Time Stop Time Status Last Admin Dose Admin Nitroglycerin (Nitrostat Tab) 0.4 mg ONE STAT SL 10/09/16 13:47 10/09/16 13:49 DC 10/09/16 14:33 0.4 MG Ondansetron HCl 4 mg 4 mg STK-MED ONCE .ROUTE 10/09/16 14:40 10/09/16 14:41 DC 10/09/16 14:40 4 MG Sodium Chloride (Nss 500ml) 500 ml @ 999 mls/hr Q31M STAT IV 10/09/16 15:03 10/09/16 15:33 DC 10/09/16 15:03 999 MLS/HR ECG Indication: chest pain Rate (beats per minute): 61 Rhythm: normal sinus Findings: no acute ischemic change, no ectopy Comparison ECG Date: 07/07/2016 Change: no significant change ED Course 1342: The patient was evaluated in room C11B. A complete history and physical exam was performed. 1347: Ordered Nitrostat Tab 0.4 mg SL. 1439: Ordered Zofran Inj 4 mg IV. 1501: Reevaluated the patient at this time, and his blood pressure is 95/53. The patient states his chest pain is almost completely resolved after one nitroglycerin. 1503: Ordered Sodium Chloride 500 ml @ 999 mls/hr IV. 1550: Reevaluated the patient at this time, and he states his chest pain is completely relieved. The patient is normotensive and has no complaints at this time. He is agreeable to the current plan for hospitalization. 1553: I spoke to NIKITA Foster (Hospitalist) about the patient' s case, and she will follow the patient for further evaluation. Medical Decision this is a 46-year-old male who presents with chest pain.differential diagnosis includes [place], unstable angina, MS Jessica I did perform a limited focused review of portions of the patient's old chart on the electronic medical record. The patient was admitted in June for chest pain. He has a history of minimal CAD based on a cath from 2008. Cardiology saw the patient, and he had a stress echocardiogram and chest pain was felt to be non-cardiac in nature. I did evaluate the patient as noted above. The patient has numerous cardiac risk factors. He is presenting with chest pain which she describes as someone sitting on his chest. He appears quite uncomfortable and is even tearing from the pain. IV access was established. The patient was placed on a continuous quality assurance monitor. I did treat patient with a nitroglycerin sublingual tablet. He did become hypotensive and was given a bolus of normal saline IV after which his blood pressure improved. On reassessment his chest pain steadily improved and eventually he stated it abated completely from the nitroglycerin. I did order and personally review the patient's 12-lead EKG and chest x-ray as described above. I did order and review the patient's blood work as noted in the electronic medical record. Troponin is negative. Although the patient had a recent negative stress echocardiogram I did feel he was high risk enough for cardiac disease that he should be hospitalized for repeat cardiac enzymes and further evaluation. The patient and his family were in agreement. I did discuss the case with the hospitalist and rifle case repairer. Consults Time Called: 155 Consulting Physician: NIKITA Foster (Hospitalist) Returned Call: 1553 I spoke to NIKITA Foster (Hospitalist) about the patient's case , and she will follow the patient for further evaluation. Impression Primary Impression: Precordial chest pain Scribe Attestation The scribe's documentation has been prepared under my direct and personally reviewed by me in its entirety. I confirm that the note above accurately reflects all work, treatment, procedures, and medical decision making performed by me. Departure Information Dispostion Being Evaluated By Hospitalist (NIKITA Foster (Hospitalist)) Referrals No Doctor, Assigned (PCP)
[2016-10-09 18:33] VITALS: BP 96/63; PULSE 63; TEMP 37; O2SAT 95; Ht 188 cm; Wt 132.9 kg
[2016-10-09 18:40] VITALS: BP 102/67; PULSE 84; TEMP 37; O2SAT 95
[2016-10-09 19:16] VITALS: BP 99/62; PULSE 74; TEMP 37.4; O2SAT 94
[2016-10-09] MEDS: BuPROPion SR 150 MG TABCR PO SCH (20:30)
[2016-10-09] MEDS: GABAPENTIN 300 MG CAP PO SCH (20:31)
[2016-10-09] MEDS: INSULIN ASPART 100 UNITS/ML 3 ML PEN SC SCH (20:47)
[2016-10-09 20:50] LABS: CKMB/CK RATIO 0.4 (0-3.0)
[2016-10-09] MEDS ORDERED: MONTELUKAST SOD 10 MG TAB PO SCH (21:00)
[2016-10-09] MEDS: HEPARIN SOD 5000 UNIT/0.5 ML CARP SQ SCH (21:15)
[2016-10-10 00:21] VITALS: BP 112/70; PULSE 66; TEMP 37.1; O2SAT 97
[2016-10-10 02:12] LABS: CKMB/CK RATIO 0.4 (0-3.0)
[2016-10-10 04:30] VITALS: BP 98/65; PULSE 61; TEMP 37; O2SAT 95
[2016-10-10] MEDS: HEPARIN SOD 5000 UNIT/0.5 ML CARP SQ SCH ×2 (05:44→13:58)
[2016-10-10] MEDS: INSULIN ASPART 100 UNITS/ML 3 ML PEN SC SCH ×2 (07:00→11:00)
[2016-10-10] MEDS: GABAPENTIN 300 MG CAP PO SCH ×2 (07:16→13:57)
[2016-10-10] MEDS: BuPROPion SR 150 MG TABCR PO SCH (07:17)
[2016-10-10 07:36] VITALS: BP 117/73; PULSE 57; TEMP 37; O2SAT 92
[2016-10-10 07:36] LABS: HEMATOCRIT 42.3 % (42-52); MEAN CELL VOLUME 83.3 fL (80-100); MEAN CORPUSCULAR HEMOGLOBIN 27.2 pg (25-34); MEAN CORPUSCULAR HGB CONC 32.6 g/dl (32-36); MEAN PLATELET VOLUME 11.7 fL (7.4-10.4); PLATELET COUNT 172 K/uL (130-400); RED BLOOD COUNT 5.08 M/uL (4.7-6.1); WHITE BLOOD COUNT 6.08 K/uL (4.8-10.8)
[2016-10-10 07:39] VITALS: O2SAT 95
[2016-10-10 08:14] LABS: ESTIMATED AVERAGE GLUCOSE 128 mg/dl; HA1C FLAG Normal (Normal)
[2016-10-10 08:30] LABS: BLOOD UREA NITROGEN 21 mg/dl (7-18); BUN/CREATININE RATIO 15.1 (10-20); CALCIUM 9.1 mg/dl (8.5-10.1); CARBON DIOXIDE 32 mmol/L (21-32); CHLORIDE 104 mmol/L (98-107); CHOLESTEROL 85 mg/dl (0-200); CHOLESTEROL/HDL RATIO 2.1; GLUCOSE 87 mg/dl (70-99); HDL CHOLESTEROL 41 mg/dl; LDL CHOLESTEROL CALCULATED 32 mg/dl; SODIUM 142 mmol/L (136-145); TRIGLYCERIDES 58 mg/dl (0-150); VERY LOW DENSITY LIPOPROT CALC 12 mg/dl
[2016-10-10] MEDS ORDERED: LISINOPRIL 40 MG TAB PO SCH (09:00)
[2016-10-10] MEDS ORDERED: CHOLECALCIFEROL 1000 INTER.UNIT TAB PO SCH (09:00)
[2016-10-10] MEDS ORDERED: HYDROCHLOROTHIAZIDE 25 MG TAB PO SCH (09:00)
[2016-10-10] MEDS ORDERED: AMLODIPINE BESYLATE 5 MG TAB PO SCH (09:00)
[2016-10-10] MEDS ORDERED: CETIRIZINE HCL 10 MG TAB PO SCH (09:00)
[2016-10-10] MEDS ORDERED: ASPIRIN 81 MG ECTAB PO SCH (09:00)
[2016-10-10] MEDS ORDERED: ATORVASTATIN 20 MG TAB PO SCH (09:00)
[2016-10-10] MEDS ORDERED: MAGNESIUM OXIDE 400 MG TAB PO SCH (09:00)
[2016-10-10] MEDS ORDERED: PERFLUTREN LIPID MICROSPHERE (DEFINITY) IV ONE ×2 (09:06→14:08)
--- NOTE | 2016-10-10 09:20 | ECHOCARDIOGRAM REPORT ---
*NOTICE TO RECEIVING CONSTITUTION PARTY AGENCY This information is strictly Confidential and protected under [place] law. [place] law prohibits you from making any further disclosure of this information unless further disclosure is expressly permitted by the written consent of the person to whom it pertains or is authorized by law. A general authorization for the release of medical or other information is not sufficient for this purpose. Hospital accepts no responsibility if the information is made available to any other person, INCLUDING THE PATIENT. Interpretation Summary * Name: DANI CHIRINOS Study Date: 10/10/2016 07:46 AM BP: 98/65 mmHg * Patient Location: C.2T\S\S238\S\1 HR: 66 * : 1970 (M/d/yyyy) Gender: Male Height: 72 in * Age: 46 yrs Ethnicity: AA Weight: 297 lb * Ordering Physician: Violette Hammer * Referring Physician: Self, Referred * Performed By: Rosa Elena Mendez, internal audit consultant, and Sheron Persaud RDCS * * Reason For Study: Chest pain * BSA: 2.5 m2 * -- Conclusions -- * The left ventricle is normal in size. * There is normal left ventricular wall thickness. * Left ventricular systolic function is normal. * Ejection Fraction = 60-65%. * The right ventricular systolic function is normal. * The left atrial size is normal. * Right atrial size is normal. Procedure Details * A complete two-dimensional transthoracic echocardiogram was performed (2D, M-mode, Doppler and color flow Doppler). * A contrast injection of Definity was performed to improve assessment of LV function. * Contrast was injected into an intravenous site in the left arm. * One vial of Definity ultrasound contrast was diluted in normal saline to a total volume of 10 ml. A total of '4' ml of solution was administered during imaging. * Lot # [id number] of Definity utilized for procedure. * Expiration date SEP 27. * The attending nurse who injected the contrast agent was Melani Morales RN. Left Ventricle * The left ventricle is normal in size. * There is normal left ventricular wall thickness. * Ejection Fraction = 60-65%. * Left ventricular systolic function is normal. * The left ventricular wall motion is normal. Right Ventricle * The right ventricle is normal size. * The right ventricular systolic function is normal. Atria * The left atrial size is normal. * Right atrial size is normal. * The interatrial septum is intact with no evidence for an atrial septal defect. Mitral Valve * The mitral valve anatomy is normal. * Significant mitral regurgitation is absent. Tricuspid Valve * The tricuspid valve is not well visualized, but is grossly normal. * Significant tricuspid regurgitation is absent. Aortic Valve * The aortic valve is normal in structure and function. Pulmonic Valve * The pulmonary valve is inadequately visualized, but the Doppler data is adequate for interpretation. * There is no significant pulmonary regurgitation. Great Vessels * The aortic root and proximal ascending aorta are normal sized. Pericardium/Pleural * There is no pericardial effusion. MMode 2D Measurements and Calculations IVSd 1.6 cm IVSs 2.0 cm LVIDd 4.2 cm LVIDs 2.7 cm LVPWd 1.8 cm LVPWs 1.8 cm IVS/LVPW 0.91 FS 34.7 % EDV(Teich) 77.3 ml ESV(Teich) 27.6 ml EF(Teich) 64.3 % EDV(cubed) 72.6 ml ESV(cubed) 20.2 ml EF(cubed) 72.2 % % IVS thick 24.6 % % LVPW thick 2.1 % LV mass(C)d 303.1 grams LV mass(C)dI 120.3 grams/m\S\2 LV mass(C)s 220.1 grams LV mass(C)sI 87.3 grams/m\S\2 CO(Teich) 2.4 l/min CI(Teich) 0.97 l/min/m\S\2 SV(Teich) 49.7 ml SI(Teich) 19.7 ml/m\S\2 CO(cubed) 2.6 l/min CI(cubed) 1.0 l/min/m\S\2 SV(cubed) 52.4 ml SI(cubed) 20.8 ml/m\S\2 ACS 2.2 cm asc Aorta Diam 2.9 cm LVOT diam 2.2 cm LVOT area 4.0 cm\S\2 LVAd ap4 48.1 cm\S\2 LVLd ap4 10.1 cm EDV(MOD-sp4) 192.0 ml LVAs ap4 25.6 cm\S\2 LVLs ap4 8.0 cm ESV(MOD-sp4) 67.0 ml EF(MOD-sp4) 65.1 % LVAd ap2 34.4 cm\S\2 LVLd ap2 9.2 cm EDV(MOD-sp2) 107.0 ml LVAs ap2 17.6 cm\S\2 LVLs ap2 7.2 cm ESV(MOD-sp2) 37.0 ml EF(MOD-sp2) 65.4 % CO(MOD-sp4) 6.1 l/min CI(MOD-sp4) 2.4 l/min/m\S\2 SV(MOD-sp4) 125.0 ml SI(MOD-sp4) 49.6 ml/m\S\2 CO(MOD-sp2) 3.4 l/min CI(MOD-sp2) 1.4 l/min/m\S\2 SV(MOD-sp2) 70.0 ml SI(MOD-sp2) 27.8 ml/m\S\2 Doppler Measurements and Calculations MV E max johnny 71.6 cm/sec MV A max johnny 50.7 cm/sec MV E/A 1.4 MV P1/2t max johnny 67.6 cm/sec MV P1/2t 104.8 msec MVA(P1/2t) 2.1 cm\S\2 MV dec slope 188.8 cm/sec\S\2 MV dec time 0.23 sec Ao V2 max 132.6 cm/sec Ao max PG 7.0 mmHg Ao max PG (full) 1.6 mmHg LAWRENCE(V,A) 3.5 cm\S\2 LAWRENCE(V,D) 3.5 cm\S\2 LV V1 max PG 5.4 mmHg LV V1 max 116.3 cm/sec PA V2 max 141.6 cm/sec PA max PG 8.1 mmHg
[2016-10-10 09:47] LABS: MAGNESIUM 2.1 mg/dl (1.8-2.4); POTASSIUM 3.5 mmol/L (3.5-5.1)
--- NOTE | 2016-10-10 09:48 | Cardiology Consultation ---
Cardiology Consultation Date of Consultation: October 10, 2016 Requesting Physician: Waldemar Attending Microarray Analyst: Tomer (Pablo Delgadillo PA-C) History of Present Illness History of Present Illness: Mr. Martínez is a 46 year old male who is being seen at the request of Dr. Medeiros. Reason for consultation is chest pain. Information obtained from chart review and interviewing the patient as well as his . Mr. Martínez notes the onset of chest pressure yesterday around 10 AM. He was initially sitting at home and thought the pressure was secondary to indigestion so he "played it off." Shortly thereafter, while driving to work, he noted increasing chest pressure, squeezing sensation with associated difficulty breathing, and felt "the left side started drooping.". He also notes tension into his neck and thought he was having another "MS bhakti." He called his then drove himself to the [facility] ER where he was evaluated by Dr. Ramírez. EKG showed no acute changes. Troponin negative, now x 3. Chest x-ray showed no active disease in the chest. He was given one sublingual nitroglycerin with "steady improvement down to a 0 or 1," developing "sweating and dry heaving" that resolved following fluid resuscitation. He notes concern for obstructive coronary disease and notes that his father developed his cardiac issues at his current age. The patient notes no aggravation of symptoms with exertion. He exercises as the gym at low levels on a stationary bicycle as well as via weight machines without difficulty. In November 2008 he was admitted with exertional chest pain and diaphoresis along with elevated CPK and troponin. Blood pressures were elevated on presentation. December 03, 2008 diagnostic cardiac catheterization by Dr. Gracia at [facility] revealed minimal luminal irregularities of the LAD without obstructive coronary disease. There was focal hypokinesis of the inferior apex with otherwise preserved LV systolic function, EF 60%. Elevated left ventricular end disastolic pressure, 18. Patient presented to [facility] in June 2016 with similar symptoms though not as intense/severe. In June he underwent exercise stress echocardiography with Dr. Catherine. He was noted to have a below average exercise tolerance though there was no evidence of exercise induced myocardial ischemia at 86% age predicted maximum heart rate. (Pablo Delgadillo PA-C) History Past Medical and Surgical History: Minimal coronary artery disease by November 2008 cardiac catheterization at [facility] Hypertension Dyslipidemia Type II diabetes mellitus Obesity Asthma Multiple Sclerosis Depression Osteoarthritis Arthroscopic right knee surgery Vasectomy Social History: Nonsmoker. Rare alcohol, one drink per month. No illegal drug use. . 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 [employer]. Family History: Father first developed cardiac issues at the age of 45, ultimately undergoing CABG x 4 six years ago at the age of 64. Mother with hypertension. Sister without cardiac issues. (Pablo Delgadillo PA-C) Review Of Systems General: No fever, chills, or night sweats. Head: No head trauma. Cardiovascular: See above. No near syncope or syncope. Pulmonary: No current cough. No hemoptysis. Gastrointestinal: See above. Skin: No rash. Musculoskeletal: See above. Denies kidney or liver issues. Denies history of DVT or PE. Neurological: Denies history of TIA, CVA, or seizures Complete review of systems is as stated above, negative, or noncontributory. (Pablo Delgadillo PA-C) Allergies Coded Allergies: No Known Allergies (Verified , NKA, 10/09/16) Medications Reported Home Medications Medications Dose Route/Sig Max Daily Dose Days Date Category Copaxone (Glatiramer Acetate) 40 Mg/Ml Inj 40 Mg INJ MWF 10/09/16 Reported Flexeril (Cyclobenzaprine Hcl) 10 Mg Tab 10 Mg PO HS PRN 07/06/16 Reported Zyrtec (Cetirizine HCl) 10 Mg Tab 10 Mg PO DAILY 07/06/16 Reported Proair Respiclick (Albuterol Sulfate) 108 Mcg/Act Aer 2 Puffs INH QID PRN 07/06/16 Reported Zestril (Lisinopril) 40 Mg Tab 40 Mg PO DAILY 05/17/16 Reported Wellbutrin Sr (Bupropion HCl) 150 Mg Ertab 150 Mg PO BID 05/17/16 Reported Lipitor (Atorvastatin) 20 Mg Tab 1 Tab PO DAILY 90 05/17/16 Reported Ultram (Tramadol HCl) 50 Mg Tab 50 Mg PO Q6H PRN 05/17/16 Reported Aspirin Ec (Aspirin) 81 Mg Tab 81 Mg PO DAILY 05/17/16 Reported Vitamin D3 (Cholecalciferol) 1,000 Unit Tab 1,000 Unit PO DAILY 30 05/17/16 Reported Glucophage (Metformin Hcl) 500 Mg Tab 500 Mg PO BID 04/28/16 Reported Hydrochlorothiazide 25 Mg Tab 25 Mg PO DAILY 10/27/14 Reported Gabapentin 300 Mg Cap 900 Mg PO TID 10/27/14 Reported Amlodipine Besylate 10 Mg Tab 10 Mg PO DAILY 10/27/14 Reported Celecoxib 200 Mg Cap 200 Mg PO BID 10/27/14 Reported Mag-Ox (Magnesium Oxide) 400 Mg Tab 400 Mg PO DAILY 12/23/13 Reported Singulair (Montelukast Sodium) 10 Mg Tab 10 Mg PO QAM 12/23/13 Reported (Pablo Delgadillo PA-C) Physical Exam Vital Signs (Last 8hrs): Last 8 Hrs Date Time Temp Pulse Resp B/P Pulse Ox O2 Delivery O2 Flow Rate FiO2 10/10/16 07:40 Room Air 10/10/16 07:39 95 Room Air 10/10/16 07:36 37.0 57 19 117/73 92 Room Air 10/10/16 04:30 37.0 61 16 98/65 95 Room Air 10/10/16 04:00 Room Air General Appearance: Obese male who is alert and Oriented x3, in no acute distress. HEENT: Normocephalic Atraumatic. PER. EOMI, Conjunctiva and sclera clear Neck: Thick. No carotid bruits. No JVD. No HJD. Respiratory: Diminished throughout. No wheezes, rales, or rhonchi appreciated. Cardiovascular: Distant heart sounds. RRR, 66 bpm. No murmurs, rubs, gallops. PMI non displaced. Abdomen: +BS. No abdominal bruits. Soft. Nontender. Extremities: No edema, no clubbing or cyanosis. Distal pulses 2/4 on the right, 1/4 on the left. . Neuro: No focal deficits. Psychiatric: Normal affect. (Pablo Delgadillo PA-C) Data Last 24 Hours Test 10/09/16 14:20 10/09/16 20:16 10/09/16 20:20 10/10/16 01:44 White Blood Count 7.86 K/uL Red Blood Count 5.47 M/uL Hemoglobin 15.0 g/dL Hematocrit 45.7 % Mean Corpuscular Volume 83.5 fL Mean Corpuscular Hemoglobin 27.4 pg Mean Corpuscular Hemoglobin Concent 32.8 g/dl Platelet Count 163 K/uL Mean Platelet Volume 11.5 fL Neutrophils (%) (Auto) 85.9 % Lymphocytes (%) (Auto) 11.1 % Monocytes (%) (Auto) 2.2 % Eosinophils (%) (Auto) 0.6 % Basophils (%) (Auto) 0.1 % Neutrophils # (Auto) 6.75 K/uL Lymphocytes # (Auto) 0.87 K/uL Monocytes # (Auto) 0.17 K/uL Eosinophils # (Auto) 0.05 K/uL Basophils # (Auto) 0.01 K/uL RDW Standard Deviation 42.0 fL RDW Coefficient of Variation 13.8 % Immature Granulocyte % (Auto) 0.1 % Immature Granulocyte # (Auto) 0.01 K/uL Prothrombin Time 11.2 SECONDS Prothromb Time International Ratio 1.0 Activated Partial Thromboplast Time 23.8 SECONDS Partial Thromboplastin Ratio 0.9 Sodium Level 144 mmol/L Potassium Level 3.6 mmol/L Chloride Level 104 mmol/L Carbon Dioxide Level 33 mmol/L Anion Gap 7.0 mmol/L Blood Urea Nitrogen 19 mg/dl Creatinine 1.20 mg/dl Est Creatinine Clear Calc Drug Dose 110.9 ml/min Estimated GFR () 83.5 Estimated GFR (Non- 72.1 BUN/Creatinine Ratio 16.1 Random Glucose 85 mg/dl Calcium Level 9.5 mg/dl Total Creatine Kinase 841 U/L 631 U/L 563 U/L Creatine Kinase MB 4.4 ng/ml 2.4 ng/ml 2.1 ng/ml Creatine Kinase MB Ratio 0.5 0.4 0.4 Troponin I < 0.015 ng/ml < 0.015 ng/ml < 0.015 ng/ml Bedside Glucose 98 mg/dl Test 10/10/16 07:02 10/10/16 08:30 White Blood Count 6.08 K/uL Red Blood Count 5.08 M/uL Hemoglobin 13.8 g/dL Hematocrit 42.3 % Mean Corpuscular Volume 83.3 fL Mean Corpuscular Hemoglobin 27.2 pg Mean Corpuscular Hemoglobin Concent 32.6 g/dl RDW Standard Deviation 43.7 fL RDW Coefficient of Variation 14.2 % Platelet Count 172 K/uL Mean Platelet Volume 11.7 fL Sodium Level 142 mmol/L Potassium Level mmol/L Chloride Level 104 mmol/L Carbon Dioxide Level 32 mmol/L Anion Gap 6.0 mmol/L Blood Urea Nitrogen 21 mg/dl Creatinine 1.40 mg/dl Est Creatinine Clear Calc Drug Dose 94.3 ml/min Estimated GFR () 69.3 Estimated GFR (Non- 59.8 BUN/Creatinine Ratio 15.1 Random Glucose 87 mg/dl Estimated Average Glucose 128 mg/dl Hemoglobin A1c 6.1 % Calcium Level 9.1 mg/dl Magnesium Level mg/dl Triglycerides Level 58 mg/dl Cholesterol Level 85 mg/dl HDL Cholesterol 41 mg/dl LDL Cholesterol, Calculated 32 mg/dl VLDL Cholesterol, Calculated 12 mg/dl Cholesterol/HDL Ratio 2.1 Admission CXR showed no acute cardiopulmonary findings. Admission EKG revealed normal sinus rhythm with an abnormal T wave in lead III, unchanged from prior tracings. EKG this morning reveals sinus bradycardia with the same abnormal T wave in lead III. Telemetry: Currently sinus bradycardia at 58 bpm. Rare atrial ectopy. No atrial fibrillation. No sustained arrhythmias, severe bradycardia, or pauses. (Pablo Delgadillo PA-C) Assessment & Plan 46 year old male with multiple cardiac risk factors, admitted with atypical chest pain as detailed above. Cardiac catheterization with minimal disease in November 2008 Negative exercise stress echocardiography in June 2016 at 86% age predicted maximum heart rate. Admission CXR without acute cardiopulmonary processes EKG x 2, without acute change. Troponin negative x 3 (< 0.015). Telemetry benign. TTE pending. Further recommendations as per Dr. Jeff. Resting bradycardia will not allow for beta-wali therapy. Continue ASA, statin, prescribed antihypertensive regimen, risk factor, and life style modification. (Pablo Delgadillo PA-C) CARDIOLOGY ATTENDING ADDENDUM: The patient was seen and personally examined. Agree with Pablo Delgadillo PA-C's findings and plans as documented above. Very atypical chest pain. Sounds like esophageal spasm. I would stress him again this admission. If stress abnormal then proceed with cath. If negative consider GI work-up and recommend prn Nitro for esophageal spasm. (Jett Jeff, )
[2016-10-10 11:37] VITALS: BP 146/90; PULSE 56; TEMP 36.6; O2SAT 94
[2016-10-10 14:58] VITALS: BP 98/65; PULSE 61; TEMP 37; O2SAT 95
[2016-10-10] MEDS ORDERED: NTRSLP4 SL (14:58)
--- NOTE | 2016-10-10 15:03 | Discharge Instructions ---
Discharge Instructions Date of Service October 10, 2016. Admission Reason for Admission: Chest Pain Discharge Discharge Diagnosis / Problem: CHEST PAIN, POSSIBLE ESOPHAGEAL SPASMS Discharge Goals Goal(s): Diagnostic testing, Therapeutic intervention Activity Recommendations Activity Limitations: as noted below (NO HEAVY EXERTION UNTIL RE-EVALUATED BY PRIMARY CARE PHYSICIAN.) . Instructions / Follow-Up Instructions / Follow-Up IN CASE YOU HAVE TO TAKE NITROGLYCERIN, LAY DOWN AND REST FOR A FEW HOURS. IF WITH WORSENING OF SYMPTOMS, CALL 911 OR RETURN TO ER IMMEDIATELY. FOLLOW UP WITH YOUR PRIMARY CARE PHYSICIAN THIS WEEK SCHEDULED. GASTROENTEROLOGY REFERRAL TO BE SET UP BY YOUR PRIMARY CARE PHYSICIAN. Current Hospital Diet Patient's current hospital diet: AHA Diet (Heart Healthy), Diabetes Type 2 Diet Discharge Diet Recommended Diet: AHA Diet (Heart Healthy) Procedures Procedures Performed: STRESS TEST Pending Studies Studies pending at discharge: no Laboratory Results Hemoglobin A1c Test 10/10/16 07:02 Range/Units Estimated Average Glucose 128 mg/dl Hemoglobin A1c 6.1 H 4.5-5.6 % Lipid Panel Test 10/10/16 07:02 Range/Units Triglycerides Level 58 0-150 mg/dl Cholesterol Level 85 0-200 mg/dl HDL Cholesterol 41 mg/dl Cholesterol/HDL Ratio 2.1 LDL Cholesterol, Calculated 32 mg/dl Medical Emergencies . Who to Call and When: Medical Emergencies: If at any time you feel your situation is an emergency, please call 911 immediately. . Non-Emergent Contact Non-Emergency issues call your: Primary Care Provider Call Non-Emergent contact if: your pain is not controlled, you have any medication questions . Past History Medical & Surgical History: (1) Precordial chest pain (2) Dyslipidemia (3) HTN (hypertension) (4) DM type 2 (diabetes mellitus, type 2) (5) Asthma, mild intermittent (6) Obesity (BMI 30-39.9) (7) Depression (8) Osteoarthritis (9) Multiple sclerosis (10) Chest pain (11) Coronary artery disease (12) S/P cardiac cath (13) H/O arthroscopic knee surgery . "Provider Documentation" section prepared by Chriss Medeiros. . VTE Core Measure Inpt VTE Proph given/why not?: Unfractionated heparin SQ
--- NOTE | 2016-10-10 15:05 | EXERCISE STRESS ECHO ---
*NOTICE TO RECEIVING CONSTITUTION PARTY AGENCY This information is strictly Confidential and protected under [place] law. [place] law prohibits you from making any further disclosure of this information unless further disclosure is expressly permitted by the written consent of the person to whom it pertains or is authorized by law. A general authorization for the release of medical or other information is not sufficient for this purpose. Hospital accepts no responsibility if the information is made available to any other person, INCLUDING THE PATIENT. Interpretation Summary * Name: DANI CHIRINOS Study Date: 10/10/2016 12:21 PM BP: 112/64 mmHg * Patient Location: .2T\S\S238\S\1 HR: 88 * : 1970 (M/d/yyyy) Gender: Male Height: 73 in * Age: 46 yrs Ethnicity: AA Weight: 292 lb * Ordering Physician: Jett Jeff * Referring Physician: Self, Referred * Performed By: Sheron Persaud RDCS * * Reason For Study: Chest pain * BSA: 2.5 m2 * Exercise capacity is average. * STRESS STUDY: Normal exercise stress echocardiogram. No echocardiographic or ECG evidence of myocardial ischemia having achieved heart rate adequate for diagnostic purposes. Procedure Details * ECHOEX, CPT #15177 * A contrast injection of Definity was performed to improve assessment of LV function. * Contrast was injected into an intravenous site in the left arm. * One vial of Definity ultrasound contrast was diluted in normal saline to a total volume of 10 ml. A total of '5' ml of solution was administered during imaging. * Lot # [id number] of Definity utilized for procedure. * Expiration date SEP 27. * The attending nurse who injected the contrast agent was Melani Morales RN. Stress Parameters * The stress portion of this study was personally supervised by the undersigned interpreting physician. * Rest heart rate was '88' BPM. * Rest blood pressure was '112/64' * Maximum heart rate achieved was 155 bpm. * Maximum heart rate was 89 % of maximum age-predicted heart rate. * Maximum blood pressure was '178/77' * Total exercise time was '5:59' * Maximum exercise MET level achieved was '7.00' METS * Maximum treadmill speed was '2.50' miles per hour. * Maximum treadmill elevation was '12.00'% grade. * Exercise was terminated due to 'achieving target heart rate'
--- NOTE | 2016-10-10 15:11 | Progress Note ---
Medicine Progress Note Date & Time of Visit: October 10, 2016 at 15:05. Subjective patient s/p stress test today tolerated well no recurrence of chest pain no abdominal pain ,nausea, vomiting denies dyspnea, palpitations, dizziness no other symptoms feels better overall states he is ready for discharge Objective Last 8 Hrs Date Time Temp Pulse Resp B/P Pulse Ox O2 Delivery O2 Flow Rate FiO2 10/10/16 14:58 37.0 61 18 95 Room Air 10/10/16 11:37 36.6 56 19 146/90 94 Room Air 10/10/16 11:29 Room Air 10/10/16 07:40 Room Air 10/10/16 07:39 95 Room Air 10/10/16 07:36 37.0 57 19 117/73 92 Room Air Physical Exam: General- oriented x 3, not in distress, speaks in sentences with no effort Eyes- anicteric Neck- supple, no JVD Lungs- clear breath sounds bilaterally Heart- regular rhythm; no murmur, normal rate Abdomen- normal bowel sounds, soft, nontender Extremities- no pretibial edema, no calf tenderness Neuro- alert, oriented x 3; no gross focal deficits Skin- warm & dry Laboratory Results: Last 24 Hours Test 10/09/16 20:16 10/09/16 20:20 10/10/16 01:44 10/10/16 06:21 Total Creatine Kinase 631 U/L 563 U/L Creatine Kinase MB 2.4 ng/ml 2.1 ng/ml Creatine Kinase MB Ratio 0.4 0.4 Troponin I < 0.015 ng/ml < 0.015 ng/ml Bedside Glucose 98 mg/dl 89 mg/dl Test 10/10/16 07:02 10/10/16 09:12 White Blood Count 6.08 K/uL Red Blood Count 5.08 M/uL Hemoglobin 13.8 g/dL Hematocrit 42.3 % Mean Corpuscular Volume 83.3 fL Mean Corpuscular Hemoglobin 27.2 pg Mean Corpuscular Hemoglobin Concent 32.6 g/dl RDW Standard Deviation 43.7 fL RDW Coefficient of Variation 14.2 % Platelet Count 172 K/uL Mean Platelet Volume 11.7 fL Sodium Level 142 mmol/L Potassium Level mmol/L 3.5 mmol/L Chloride Level 104 mmol/L Carbon Dioxide Level 32 mmol/L Anion Gap 6.0 mmol/L Blood Urea Nitrogen 21 mg/dl Creatinine 1.40 mg/dl Est Creatinine Clear Calc Drug Dose 94.3 ml/min Estimated GFR () 69.3 Estimated GFR (Non- 59.8 BUN/Creatinine Ratio 15.1 Random Glucose 87 mg/dl Estimated Average Glucose 128 mg/dl Hemoglobin A1c 6.1 % Calcium Level 9.1 mg/dl Magnesium Level mg/dl 2.1 mg/dl Triglycerides Level 58 mg/dl Cholesterol Level 85 mg/dl HDL Cholesterol 41 mg/dl LDL Cholesterol, Calculated 32 mg/dl VLDL Cholesterol, Calculated 12 mg/dl Cholesterol/HDL Ratio 2.1 Assessment & Plan 46 year old male presents to the ED complaining of chest pain alleviated by nitro in the ED, initial workup negative CHEST PAIN ACUTE CORONARY SYNDROME RULED OUT POSSIBLE ESOPHAGEAL SPASMS - cardiac markers negative ekg no signs of acute ischemia echo: unrevealing - s/p Stress Test by : negative for ischemia - recommend PPI, Maalox PRN, if without relief Nitro PRN recommend outpatient GI referral DM2 -A1c 6.1 continue usual DM meds HTN -stable -continue Lisinopril, Amlodipine, HCTZ HLD - continue statin LDL 32 ASTHMA -stable -continue Prn inhaler MULTIPLE SCLEROSIS -continue Copaxone -followup with neurology as scheduled DEPRESSION -continue Wellbutrin DISPO d/c home ff up with PCP this week outpatient GI follow up Current Inpatient Medications: Current Inpatient Medications Medications (Trade) Dose Ordered Sig/Rudy Route Start Time Stop Time Status Last Admin Dose Admin Acetaminophen (Tylenol Tab) 650 mg Q4H PRN PO 10/09/16 16:30 11/08/16 16:29 Ondansetron HCl (Zofran Inj) 4 mg Q6H PRN IV 10/09/16 16:30 11/08/16 16:29 Nitroglycerin (Nitrostat Tab) 0.4 mg UD PRN SL 10/09/16 16:30 11/08/16 16:29 Heparin Sodium (Porcine) (Heparin Sq 5000 Unit/0.5ml) 5,000 unit Q8 SQ 10/09/16 22:00 11/08/16 21:59 10/10/16 13:58 5,000 UNIT Aspirin (Ecotrin Tab) 81 mg DAILY PO 10/10/16 09:00 11/09/16 08:59 10/10/16 07:21 81 MG Atorvastatin Calcium (Lipitor Tab) 20 mg DAILY PO 10/10/16 09:00 11/09/16 08:59 10/10/16 07:18 20 MG Bupropion HCl (Wellbutrin-Sr Tab) 150 mg BID PO 10/09/16 21:00 11/08/16 20:59 10/10/16 07:17 150 MG Cetirizine HCl (zyrTEC TAB) 10 mg DAILY PO 10/10/16 09:00 11/09/16 08:59 10/10/16 07:19 10 MG Cholecalciferol (Vitamin D Tab) 1,000 inter.unit DAILY PO 10/10/16 09:00 11/09/16 08:59 10/10/16 07:21 1,000 INTER.UNIT Cyclobenzaprine HCl (Flexeril Tab) 10 mg HS PRN PO 10/09/16 16:45 11/08/16 16:44 10/10/16 07:17 10 MG Gabapentin (Neurontin Cap) 900 mg TID PO 10/09/16 21:00 11/08/16 20:59 10/10/16 13:57 900 MG Hydrochlorothiazide (Hydrochlorothiazide Tab) 25 mg DAILY PO 10/10/16 09:00 11/09/16 08:59 10/10/16 07:19 25 MG Lisinopril (Zestril Tab) 40 mg DAILY PO 10/10/16 09:00 11/09/16 08:59 10/10/16 07:19 40 MG Magnesium Oxide (Mag-Ox Tab) 400 mg DAILY PO 10/10/16 09:00 11/09/16 08:59 10/10/16 07:20 400 MG Montelukast Sodium (Singulair Tab) 10 mg PM PO 10/09/16 21:00 11/08/16 20:59 10/09/16 20:31 10 MG Tramadol HCl (Ultram Tab) 50 mg Q6H PRN PO 10/09/16 16:45 11/08/16 16:44 Albuterol (Ventolin Hfa Inhaler) 2 puffs QID PRN INH 10/09/16 16:45 11/08/16 16:44 Amlodipine Besylate (Norvasc Tab) 10 mg DAILY PO 10/10/16 09:00 11/09/16 08:59 10/10/16 07:20 10 MG Miscellaneous Information (Order Awaiting Action) 1 ea QS N/A 10/10/16 00:00 11/09/16 00:00 Insulin Aspart (novoLOG ASPART) SLIDING SCALE If C... ACHS SC 10/09/16 21:00 11/08/16 20:59 Glucose (Glucose 40% Gel) 15-30 GRAMS 15 GRAMS... UD PRN PO 10/09/16 16:45 11/08/16 16:44 Glucose (Glucose Chew Tab) 4-8 Tablets 4 Tabl... UD PRN PO 10/09/16 16:45 11/08/16 16:44 Dextrose (Dextrose 50% 50ML Syringe) 25-50ML OF 50% DW IV FOR... UD PRN IV 10/09/16 16:45 11/08/16 16:44 Glucagon (Glucagon Inj) 1 mg UD PRN SQ 10/09/16 16:45 11/08/16 16:44
--- NOTE | 2016-10-10 15:16 | Discharge Summary ---
Discharge Summary Date of Service October 10, 2016. Discharge Summary Admission Date: Oct 09, 2016 at 16:25 Discharge Date: October 10, 2016 Discharge Disposition: Home Principal Diagnosis: CHEST PAIN ACUTE CORONARY SYNDROME RULED OUT POSSIBLE ESOPHAGEAL SPASMS Secondary Diagnoses/Problems: Please refer to hospital course below. Procedures: Stress Test; Echo: * -- Conclusions -- * The left ventricle is normal in size. * There is normal left ventricular wall thickness. * Left ventricular systolic function is normal. * Ejection Fraction = 60-65%. * The right ventricular systolic function is normal. * The left atrial size is normal. * Right atrial size is normal. Consultations: Clinical Research Nurse Dr. Jeff Pending Studies/Follow-Up: Please refer to hospital course below. Medication Reconciliation New Medications: Nitroglycerin (Nitrostat) 0.4 Mg/1 Tab Subl 0.4 MG SL DAILY PRN for chest pain, #15 TABS 1 Refill call 911 immediately if with no relief Continued Medications: Albuterol Sulfate (Proair Respiclick) 108 Mcg/Act Aer 2 PUFFS INH QID PRN for SOB/Wheezing Amlodipine Besylate (Amlodipine Besylate) 10 Mg Tab 10 MG PO DAILY, #30 Aspirin (Aspirin Ec) 81 Mg Tab 81 MG PO DAILY Atorvastatin (Lipitor) 20 Mg Tab 1 TAB PO DAILY for 90 Days, #90 TAB 1 Refill Bupropion (Wellbutrin Sr) 150 Mg Ertab 150 MG PO BID, TAB Celecoxib (Celecoxib) 200 Mg Cap 200 MG PO BID, #60 Cetirizine (Zyrtec) 10 Mg Tab 10 MG PO DAILY, TAB Cholecalciferol (Vitamin D3) 1,000 Unit Tab 1000 UNIT PO DAILY for 30 Days, #3 TAB 5 Refills Cyclobenzaprine Hcl (Flexeril) 10 Mg Tab 10 MG PO HS PRN for Muscle Spasms, #21 TAB Gabapentin (Gabapentin) 300 Mg Cap 900 MG PO TID, #120 Glatiramer Acetate (Copaxone) 40 Mg/Ml Inj 40 MG INJ MWF Hydrochlorothiazide (Hydrochlorothiazide) 25 Mg Tab 25 MG PO DAILY, #30 Lisinopril (Zestril) 40 Mg Tab 40 MG PO DAILY, TAB Magnesium Oxide (Mag-Ox) 400 Mg Tab 400 MG PO DAILY, TAB Metformin Hcl (Glucophage) 500 Mg Tab 500 MG PO BID, TAB Montelukast Sodium (Singulair) 10 Mg Tab 10 MG PO QAM, TAB Tramadol (Ultram) 50 Mg Tab 50 MG PO Q6H PRN for Pain, TAB Admission Information HPI (per Admitting provider): Patient seen and examined. 46 year old male with PMHx of DM2, HTN, HLD, Asthma, Multiple Sclerosis, and minimal CAD on [facility] in 2008 presents to the ED complaining of chest pain prior to arrival. Patient reports he was sitting at home when he developed substernal chest pain described as "squeezing, something sitting on the chest, and tightness." He states he drove to work and on the way the pain escalated to 10/10 and he started to have associated SOB and radiation of pain to the left arm. He also reports diaphoresis. So patient drove himself to the ED for further evaluation. He denies fevers, chills, URI symptoms, palpitations, nausea, vomiting, diarrhea, dysuria, calf pain and edema. He presented to [facility] in June with similar symptoms but he states they were less intense at that time. He had a negative stress test. He reports taking aspirin daily. He denies any other episodes of chest pain between June and today. He is a lifelong nonsmoker. He reports his father developed heart problems in his 40s. In the ED patient received nitro SL and is now chest pain free. EKG was nonischemic, CXR with negative troponin was negative total CK was 841. He is resting comfortably. He will be observed for further workup and treatment. Physical Exam (per Admitting): General Appearance: + pertinent finding (Very pleasant WD/WN 46 year old male lying in bed in NAD with at bedside ) Head: normocephalic, atraumatic Eyes: PERRL, EOMI, sclerae normal ENT: hearing grossly normal, pharynx normal Neck: supple, no JVD Respiratory/Chest: chest non-tender, lungs clear, normal breath sounds, no respiratory distress, no accessory muscle use Cardiovascular: regular rate, rhythm, no edema, no gallop, no JVD, no murmur , normal peripheral pulses Abdomen/GI: normal bowel sounds, non tender, soft Back: normal inspection, no muscle spasm Extremities/Musculoskelatal: no calf tenderness, normal capillary refill, no pedal edema Neurologic/Psych: no motor/sensory deficits, alert, oriented x 3 Skin: normal color, warm/dry, no rash Lymphatic: no adenopathy Hospital Course 46 year old male presents to the ED complaining of chest pain alleviated by nitro in the ED, initial workup negative CHEST PAIN ACUTE CORONARY SYNDROME RULED OUT POSSIBLE ESOPHAGEAL SPASMS - cardiac markers negative ekg no signs of acute ischemia echo: unrevealing - s/p Stress Test by : negative for ischemia - recommend PPI, Maalox PRN, if without relief Nitro PRN recommend outpatient GI referral DM2 -A1c 6.1 continue usual DM meds HTN -stable -continue Lisinopril, Amlodipine, HCTZ HLD - continue statin LDL 32 ASTHMA -stable -continue Prn inhaler MULTIPLE SCLEROSIS -continue Copaxone -followup with neurology as scheduled DEPRESSION -continue Wellbutrin DISPO d/c home ff up with PCP this week outpatient GI follow up Total time spent on discharge = 30 minutes This includes examination of the patient, discharge planning, medication reconciliation, and communication with other providers. Discharge Instructions Discharge Instructions Date of Service October 10, 2016. Admission Reason for Admission: Chest Pain Discharge Discharge Diagnosis / Problem: CHEST PAIN, POSSIBLE ESOPHAGEAL SPASMS Discharge Goals Goal(s): Diagnostic testing, Therapeutic intervention Activity Recommendations Activity Limitations: as noted below (NO HEAVY EXERTION UNTIL RE-EVALUATED BY PRIMARY CARE PHYSICIAN.) . Instructions / Follow-Up Instructions / Follow-Up IN CASE YOU HAVE TO TAKE NITROGLYCERIN, LAY DOWN AND REST FOR A FEW HOURS. IF WITH WORSENING OF SYMPTOMS, CALL 911 OR RETURN TO ER IMMEDIATELY. FOLLOW UP WITH YOUR PRIMARY CARE PHYSICIAN THIS WEEK SCHEDULED. GASTROENTEROLOGY REFERRAL TO BE SET UP BY YOUR PRIMARY CARE PHYSICIAN. Current Hospital Diet Patient's current hospital diet: AHA Diet (Heart Healthy), Diabetes Type 2 Diet Discharge Diet Recommended Diet: AHA Diet (Heart Healthy) Procedures Procedures Performed: STRESS TEST Pending Studies Studies pending at discharge: no Laboratory Results Hemoglobin A1c Test 10/10/16 07:02 Range/Units Estimated Average Glucose 128 mg/dl Hemoglobin A1c 6.1 H 4.5-5.6 % Lipid Panel Test 10/10/16 07:02 Range/Units Triglycerides Level 58 0-150 mg/dl Cholesterol Level 85 0-200 mg/dl HDL Cholesterol 41 mg/dl Cholesterol/HDL Ratio 2.1 LDL Cholesterol, Calculated 32 mg/dl Medical Emergencies . Who to Call and When: Medical Emergencies: If at any time you feel your situation is an emergency, please call 911 immediately. . Non-Emergent Contact Non-Emergency issues call your: Primary Care Provider Call Non-Emergent contact if: your pain is not controlled, you have any medication questions . Past History Medical & Surgical History: (1) Precordial chest pain (2) Dyslipidemia (3) HTN (hypertension) (4) DM type 2 (diabetes mellitus, type 2) (5) Asthma, mild intermittent (6) Obesity (BMI 30-39.9) (7) Depression (8) Osteoarthritis (9) Multiple sclerosis (10) Chest pain (11) Coronary artery disease (12) S/P cardiac cath (13) H/O arthroscopic knee surgery . "Provider Documentation" section prepared by Chriss Medeiros. . VTE Core Measure Inpt VTE Proph given/why not?: Unfractionated heparin SQ
[2017-04-06] MEDS ORDERED: CHOL1000 PO (08:15)
[2017-04-06] MEDS ORDERED: ASPI81TA28 PO (08:15)
[2017-04-06] MEDS ORDERED: LISI40TA PO (08:15)
[2017-04-06] MEDS ORDERED: TRAM-10 PO (08:15)
[2017-04-06] MEDS ORDERED: ATOR-54 PO (08:15)
[2017-04-06] MEDS ORDERED: BUPR-79 PO (08:15)
[2017-04-06] MEDS ORDERED: GLC/500 PO (08:53)
[2017-04-06] MEDS ORDERED: NRV/10 PO (11:29)
[2017-04-06] MEDS ORDERED: CELE1CAP30 PO (11:29)
[2017-04-06] MEDS ORDERED: GABA1CAP4 PO (11:29)
[2017-04-06] MEDS ORDERED: HYDR25TA5 PO (11:29)
[2017-04-06] MEDS ORDERED: GLAT1INJ INJ (13:32)
== END 2016-10-10 15:21 | disposition home or self-care (01) ==
LOC: ENRESERVDT → ENRESERVTM → C.EDB 12:58 → C.2T 16:25
PROVIDERS: ADMIT Internal Medicine; ATTEND Internal Medicine
DX: R07.9 Chest pain, unspecified (principal); I25.10 Atherosclerotic heart disease of native coronary artery without angina pectoris; I10 Essential (primary) hypertension; E78.5 Hyperlipidemia, unspecified; G35 Multiple sclerosis; J45.20 Mild intermittent asthma, uncomplicated; F32.9 Major depressive disorder, single episode, unspecified; Z79.82 Long term (current) use of aspirin; Z79.899 Other long term (current) drug therapy; Z79.810 Long term (current) use of selective estrogen receptor modulators (SERMs); M19.90 Unspecified osteoarthritis, unspecified site; E66.9 Obesity, unspecified; Z68.30 Body mass index [BMI] 30.0-30.9, adult

== ENCOUNTER → 2017-02-08 | Outpatient (CLI) | payer OTHER ==
[~2017-02-08] MED LIST changes: +ALBU18002 INH; +ASPI81TA28 PO; +ATOR-54 PO; +BUPR-79 PO; +CELE1CAP30 PO; +CETI10TA84 PO; +CHOL1000 PO; +CYCL10TA6 PO; +GABA1CAP4 PO; +GLAT1INJ INJ; +GLC/500 PO; +HYDR25TA5 PO; +LISI40TA PO; +MAGN400T6 PO; -MECL1TAB42 PO; +MONT1TAB3 PO; +NRV/10 PO; +NTRSLP4 SL; +TRAM-10 PO
--- NOTE | 2017-02-08 09:34 | DIAGNOSTIC IMAGING REPORT ---
(BARIUM SWALLOW) ESOPHAGUS CLINICAL HISTORY: LIQUID DYSPHAGIA COMPARISON STUDY: None. FLUOROSCOPY TIME: 0.8 minutes. FINDINGS: 22 fluoroscopic images were obtained. No esophageal mass or stricture was identified. Esophageal motility was normal. A 13 mm barium tablet passed into the stomach. No reflux was elicited. No hiatal hernia was identified. IMPRESSION: No esophageal mass or stricture. 13 mm barium passed into stomach. Electronically signed by: Dalton Ascencio M.D. 02/08/2017 9:32 AM Dictated Date/Time: 02/08/2017 9:31 AM
== END | disposition home or self-care (01) ==
LOC: C.RAD 08:49
PROVIDERS: ATTEND Nurse Practitioner Family
DX: R13.10 Dysphagia, unspecified (principal); Z98.890 Other specified postprocedural states

== ENCOUNTER 2017-04-06 14:03 | Emergency (ER) | payer OTHER ==
[~2017-04-06] VITALS: Ht 181.6 cm; Wt 137.8 kg
[~2017-04-06 14:03] MED LIST changes: -ALBU18002 INH; -CETI10TA84 PO; -CYCL10TA6 PO; -MAGN400T6 PO; -MONT1TAB3 PO
[2017-04-06 14:07] VITALS: TEMP 36.8; Ht 181.6 cm; Wt 137.8 kg
[2017-04-06 15:40] LABS: BASO % 0.4 %; BASO ABS # 0.02 K/uL (0-0.2); COMPLETE YES; EOS % 1.5 %; HEMATOCRIT 45.8 % (42-52); IG% 0.2 %; LYMPH % 37.5 %; LYMPH ABS # 2.06 K/uL (1.2-3.4); MEAN CELL VOLUME 80.9 fL (80-100); MEAN CORPUSCULAR HEMOGLOBIN 27.6 pg (25-34); MEAN CORPUSCULAR HGB CONC 34.1 g/dl (32-36); MEAN PLATELET VOLUME 11.3 fL (7.4-10.4); MONO % 9.5 %; NEUT % 50.9 %; PLATELET COUNT 172 K/uL (130-400); RED BLOOD COUNT 5.66 M/uL (4.7-6.1); WHITE BLOOD COUNT 5.49 K/uL (4.8-10.8)
--- NOTE | 2017-04-06 15:47 | EMERGENCY ROOM VISIT NOTE ---
History Report prepared by Denice: Julieth Schmidt Under the Supervision of: Dr. Baldomero Powell D.O. First contact with patient: 14:55 Chief Complaint: ILLNESS Stated Complaint: MS SYMPTOMS History of Present Illness The patient is a 46 year old male who presents to the Emergency Room with complaints of a sudden onset of blurry vision in his left eye beginning this morning. The patient states that his visual symptoms were only in the left eye and the right eye was completely normal. He denies any double vision and states that he was experiencing blurred vision. This resolved around 12-12:30 this afternoon. He was just walking around his house when his symptoms began. The patient states that this has happened before a few weeks ago and it occurred in both eyes at that time. It lasted throughout the day and resolved on its own at that time as well. He had one episode of loose stools this morning. He has also been experiencing increased urinary frequency for the past week. He rates his overall discomfort as a 5/10 in severity. The patient has a history of MS. He was recently diagnosed and has been on medication for the past 6-7 months. He follows with a neurologist. His called his neurologist's office this morning and they advised that the patient come to the ED for further evaluation. Pt denies headache, fevers, chest pain, shortness of breath, nausea , vomiting, pain with urination, penile discharge, and melena. Source of History: patient Onset: this morning Position: eye (left) Symptom Intensity: 5/10 Quality: other (blurry vision) Timing: resolved Modifying Factors (Relieving): other (time) Associated Symptoms: + diarrhea, + urinary symptoms (increased frequency; denies pain), No fevers, No headache, No chest pain, No SOB, No nausea, No vomiting, No melena Review of Systems See HPI for pertinent positives & negatives. A total of 10 systems reviewed and were otherwise negative. Past Medical & Surgical Medical Problems: (1) Asthma, mild intermittent (2) Coronary artery disease (3) Depression (4) DM type 2 (diabetes mellitus, type 2) (5) Dyslipidemia (6) HTN (hypertension) (7) Multiple sclerosis (8) Obesity (BMI 30-39.9) (9) Osteoarthritis Surgical Problems: (1) H/O arthroscopic knee surgery (2) S/P cardiac cath Family History CHF (congestive heart failure) FATHER Hypertension FATHER MOTHER Stroke MGM PGM Social History Smoking Status: Never Smoker Alcohol Use: occasionally Drug Use: none Marital Status: Housing Status: lives with family Occupation Status: employed Current/Historical Medications Scheduled Amlodipine Besylate (Amlodipine Besylate), 10 MG PO DAILY Aspirin (Aspirin Ec), 81 MG PO DAILY Atorvastatin (Lipitor), 20 MG PO DAILY Bupropion (Wellbutrin Sr), 150 MG PO BID Celecoxib (Celecoxib), 200 MG PO BID Cetirizine (Zyrtec), 10 MG PO DAILY Cholecalciferol (Vitamin D3), 1,000 UNIT PO DAILY Gabapentin (Gabapentin), 900 MG PO TID Glatiramer Acetate (Copaxone), 40 MG INJ MWF Hydrochlorothiazide (Hydrochlorothiazide), 25 MG PO DAILY Lisinopril (Zestril), 40 MG PO DAILY Magnesium Oxide (Mag-Ox), 400 MG PO DAILY Metformin Hcl (Glucophage), 500 MG PO BID Montelukast Sodium (Singulair), 10 MG PO QAM Scheduled PRN Albuterol Sulfate (Proair Respiclick), 2 PUFFS INH QID PRN for SOB/Wheezing Cyclobenzaprine Hcl (Flexeril), 10 MG PO HS PRN for Muscle Spasms Nitroglycerin (Nitrostat), 0.4 MG SL DAILY PRN for chest pain Tramadol (Ultram), 50 MG PO Q6H PRN for Pain Allergies Coded Allergies: No Known Allergies (Verified , NKA, 04/06/17) Physical Exam Vital Signs Date Time Temp Pulse Resp B/P (MAP) Pulse Ox O2 Delivery O2 Flow Rate FiO2 04/06/17 18:08 60 18 130/80 98 04/06/17 17:23 56 19 132/85 96 Room Air 04/06/17 16:25 63 15 151/95 95 Room Air 04/06/17 15:23 60 04/06/17 14:07 36.8 73 16 175/78 97 Room Air Physical Exam GENERAL: Sitting up in bed, alert, well appearing, well nourished, no distress, non-toxic EYE EXAM: normal conjunctiva. PERRL and EOM's intact. OROPHARYNX: no exudate, no erythema, lips, buccal mucosa, and tongue normal and mucous membranes are moist NECK: supple, no nuchal rigidity, no adenopathy, non-tender LUNGS: Clear to auscultation. Normal chest wall mechanics HEART: no murmurs, S1 normal and S2 normal ABDOMEN: abdomen soft, non-tender, normo-active bowel sounds, no masses, no rebound or guarding. BACK: Back is symmetrical on inspection and there is no deformity, no midline tenderness, no CVA tenderness. SKIN: no rashes and no bruising UPPER EXTREMITIES: upper extremities are grossly normal. LOWER EXTREMITIES: No pitting edema. NEURO EXAM: Normal sensorium, cranial nerves II-XII intact, normal speech, no weakness of arms. LLE weak with plantar and dorsiflexion, flexion/extension of hip/knee ankle, EHL in RLE completely intact. No drift. Finger to nose intact. Gross sensation intact. Medical Decision & Procedures ER Provider Diagnostic Interpretation: Radiology results as stated below per my review and the radiologist's interpretation: CT SCAN OF THE BRAIN WITHOUT IV CONTRAST CLINICAL HISTORY: Headache. Blurry vision. COMPARISON STUDY: CT of the brain dated 02/08/2012. TECHNIQUE: Unenhanced axial CT scan of the brain is performed from the vertex to the skull base. A dose lowering technique was utilized adhering to the principles of ALARA. CT DOSE: 537.48 mGy.cm FINDINGS: Brain parenchyma: The brain parenchyma is normal in appearance. There is no hemorrhage, mass effect, or evidence of acute territorial ischemia by CT criteria. Rao-white matter is preserved. No extra-axial fluid collection is seen. Ventricles, sulci, cisterns: Normal in configuration. Intracranial vasculature: There is mild atherosclerotic calcification of the cavernous carotid arteries. Calvarium: Unremarkable. Sinuses and mastoids: The visualized paranasal sinuses are clear. The mastoid air cells are well pneumatized. Orbits: The bony orbits are grossly intact. IMPRESSION: No acute intracranial abnormality. Electronically signed by: Sourav Gates M.D. 04/06/2017 3:44 PM Dictated Date/Time: 04/06/2017 3:43 PM Laboratory Results 04/06/17 15:22 Red Blood Count 5.66, Mean Corpuscular Volume 80.9, Mean Corpuscular Hemoglobin 27.6, Mean Corpuscular Hemoglobin Concent 34.1, Mean Platelet Volume 11.3, Neutrophils (%) (Auto) 50.9, Lymphocytes (%) (Auto) 37.5, Monocytes (%) (Auto) 9.5, Eosinophils (%) (Auto) 1.5, Basophils (%) (Auto) 0.4, Neutrophils # (Auto) 2.80, Lymphocytes # (Auto) 2.06, Monocytes # (Auto) 0.52, Eosinophils # (Auto) 0.08, Basophils # (Auto) 0.02 04/06/17 15:22 Test 04/06/17 15:22 04/06/17 16:25 White Blood Count 5.49 K/uL (4.8-10.8) Red Blood Count 5.66 M/uL (4.7-6.1) Hemoglobin 15.6 g/dL (14.0-18.0) Hematocrit 45.8 % (42-52) Mean Corpuscular Volume 80.9 fL (80-100) Mean Corpuscular Hemoglobin 27.6 pg (25-34) Mean Corpuscular Hemoglobin Concent 34.1 g/dl (32-36) Platelet Count 172 K/uL (130-400) Mean Platelet Volume 11.3 fL (7.4-10.4) Neutrophils (%) (Auto) 50.9 % Lymphocytes (%) (Auto) 37.5 % Monocytes (%) (Auto) 9.5 % Eosinophils (%) (Auto) 1.5 % Basophils (%) (Auto) 0.4 % Neutrophils # (Auto) 2.80 K/uL (1.4-6.5) Lymphocytes # (Auto) 2.06 K/uL (1.2-3.4) Monocytes # (Auto) 0.52 K/uL (0.11-0.59) Eosinophils # (Auto) 0.08 K/uL (0-0.5) Basophils # (Auto) 0.02 K/uL (0-0.2) RDW Standard Deviation 43.0 fL (36.4-46.3) RDW Coefficient of Variation 14.6 % (11.5-14.5) Immature Granulocyte % (Auto) 0.2 % Immature Granulocyte # (Auto) 0.01 K/uL (0.00-0.02) Anion Gap 6.0 mmol/L (3-11) Est Creatinine Clear Calc Drug Dose 122.1 ml/min Estimated GFR () 94.9 Estimated GFR (Non- 81.9 BUN/Creatinine Ratio 10.9 (10-20) Calcium Level 8.7 mg/dl (8.5-10.1) Total Bilirubin 0.6 mg/dl (0.2-1) Direct Bilirubin 0.1 mg/dl (0-0.2) Aspartate Amino Transf (AST/SGOT) 21 U/L (15-37) Alanine Aminotransferase (ALT/SGPT) 38 U/L (12-78) Alkaline Phosphatase 66 U/L (45-117) Total Protein 7.0 gm/dl (6.4-8.2) Albumin 3.6 gm/dl (3.4-5.0) Lipase 135 U/L (73-393) Urine Color YELLOW Urine Appearance CLEAR (CLEAR) Urine pH 5.5 (4.5-7.5) Urine Specific [place] 1.017 (1.000-1.030) Urine Protein NEG (NEG) Urine Glucose (UA) NEG (NEG) Urine Ketones NEG (NEG) Urine Occult Blood NEG (NEG) Urine Nitrite NEG (NEG) Urine Bilirubin NEG (NEG) Urine Urobilinogen NEG (NEG) Urine Leukocyte Esterase NEG (NEG) Urine WBC (Auto) 0 /hpf (0-5) Urine RBC (Auto) 0-4 /hpf (0-4) Urine Hyaline Casts (Auto) 0 /lpf (0-5) Urine Epithelial Cells (Auto) 0-5 /lpf (0-5) Urine Bacteria (Auto) NEG (NEG) ECG Indication: other Rate (beats per minute): 61 Rhythm: normal sinus Findings: left axis deviation, other (poor baseline; flipped T-wave in lead 3 ) Comparison ECG Date: 10/10/16 Change: no significant change ED Course ED COURSE: Vital signs were reviewed and showed hypertensive. The patients medical record was reviewed The above diagnostic studies were performed and reviewed. ED treatments and interventions as stated above. 1455: The patient was evaluated in room B9. A complete history and physical examination was performed. 1512: I spoke with Dr. Vela of [facility] neurology. We discussed the patient 's case. She said he does not need emergent imaging, she can order everything as an outpatient. She does recommend steroids. 1526: I updated the patient. We rediscussed his symptoms. He reports 1 loose stool a day that comes on suddenly. He is not incontinent of urine but when he gets the urge to urinate he has to go immediately. He denies any weakness or back pain. 1743: Upon reevaluation, the patient is resting comfortably. I discussed my findings with the patient and he understands and agrees with the treatment plan. Based on the patients age, coexisting illnesses, exam and lab findings the decision to treat as an outpatient was made. The patient remained stable while under my care. The patient appeared well at the time of discharge. Medical Decision Differential Diagnosis includes but is not limited to dehydration, stroke, anemia, hypoglycemia, hyponatremia, hypernatremia, urinary tract infection, pneumonia, bronchitis, sepsis, gastroenteritis, additional abdominal pathology, metabolic abnormalities and infections. Patient is a 46-year-old male who presents to ER complaining of blurred vision in his left eye which has resolved. He has a history of MS. He was diagnosed a year ago and is on Copaxone. He admits to blurry vision over a month ago which resolved with in 24 hours. He denies any new weakness or numbness in the arms or legs. He does have a footdrop of the left lower extremity which is old. He does complain of urinary urgency. He has about one episode of diarrhea per day. He is able to hold his bowel bladder but when he has to urinate has to be in a prompt fashion. No signs of saddle paresthesias. No new back pain. Patient was referred in by neurology nurse. I discussed with neurologist. They recommended outpatient MRI. I did CT his head. Labs were unremarkable. He is placed on steroids per neurology. He was discharged follow -up with Dr. Collins. I do favor this is likely an MS flare. Discussed with Pt concerning signs and symptoms to watch out for. Pt was instructed to follow up with their PCP and discussed with the patient their option to return to the ED at anytime for persistent or worsening symptoms. The appropriate anticipatory guidance and out-patient management, including indications for return to the emergency department, were explained at length to the patient and understood. Medication Reconcilliation Current Medication List: was personally reviewed by me Blood Pressure Screening Patient's blood pressure: Elevated blood pressure Blood pressure disposition: Elevated BP felt to be situational Consults Time Called: 150 Consulting Physician: Dr. Vela Returned Call: [address] Vela of [facility] neurology. We discussed the patient's case. She said he does not need emergent imaging, she can order everything as an outpatient. She does recommend steroids. Impression Primary Impression: Blurred vision Scribe Attestation The scribe's documentation has been prepared under my direction and personally reviewed by me in its entirety. I confirm that the note above accurately reflects all work, treatment, procedures, and medical decision making performed by me. Departure Information Dispostion Home / Self-Care Referrals Kumar Norman M.D. (PCP) Jamie Collins M.D. (MEDICINE) Forms HOME CARE DOCUMENTATION FORM, IMPORTANT VISIT INFORMATION, WORK / SCHOOL INSTRUCTIONS Patient Instructions ED Blurred Vision, My [facility] Additional Instructions Please follow up with your primary care doctor with in the next 24 hours. Any worsening of your symptoms, please return to the ED immediately. This includes any fevers greater than 100.4, worsening pain, chest pain, shortness breath, persistent nausea, vomiting, unable to eat or drink, weakness or numbness in your arms or legs, unable to void, numbness in your groin, or any other concerning signs or symptoms from your standpoint. Please follow up with Dr. Collins tomorrow.
[2017-04-06 16:02] LABS: BUN/CREATININE RATIO 10.9 (10-20); CALCIUM 8.7 mg/dl (8.5-10.1); CREATININE 1.08 mg/dl (0.60-1.40); POTASSIUM 3.5 mmol/L (3.5-5.1)
[2017-04-06 16:54] LABS: URINE APPEARANCE CLEAR (CLEAR); URINE BILIRUBIN NEG (NEG); URINE COLOR YELLOW; URINE EPITHELIAL CELL AUTO 0-5 /lpf (0-5); URINE NITRITE NEG (NEG); URINE PH 5.5 (4.5-7.5); URINE SPECIFIC GRAVITY 1.017 (1.000-1.030); UROBILINOGEN NEG (NEG); ZZUR CULT IF INDIC CLEAN CATCH NO
[2017-04-06 16:59] LABS: MANUAL MICROSCOPIC REQUIRED? NO; REVIEW REQ? NO
[2017-04-06] MEDS ORDERED: MONT1TAB3 PO (17:07)
[2017-04-06] MEDS ORDERED: MAGN400T6 PO (17:14)
[2017-04-06 18:08] VITALS: BP 130/80; PULSE 60; O2SAT 98
[2017-04-06] MEDS ORDERED: ALBU18002 INH (18:18)
[2017-04-06] MEDS ORDERED: CETI10TA84 PO (19:23)
[2017-04-06] MEDS ORDERED: CYCL10TA6 PO (19:23)
== END 2017-04-06 18:10 | disposition home or self-care (01) ==
LOC: C.EDB 14:04
DX: H53.8 Other visual disturbances (principal); J45.909 Unspecified asthma, uncomplicated; I25.10 Atherosclerotic heart disease of native coronary artery without angina pectoris; F32.9 Major depressive disorder, single episode, unspecified; E11.9 Type 2 diabetes mellitus without complications; E78.5 Hyperlipidemia, unspecified; I10 Essential (primary) hypertension; G35 Multiple sclerosis; E66.9 Obesity, unspecified; M19.90 Unspecified osteoarthritis, unspecified site; Z82.49 Family history of ischemic heart disease and other diseases of the circulatory system; Z82.3 Family history of stroke; Z79.82 Long term (current) use of aspirin

== ENCOUNTER 2017-04-08 07:37 | Emergency (ER) | payer OTHER ==
[~2017-04-08] VITALS: Ht 180.3 cm; Wt 139.4 kg
[~2017-04-08 07:37] MED LIST changes: +ALBU18002 INH; +CETI10TA84 PO; +CYCL10TA6 PO; +MAGN400T6 PO; +MONT1TAB3 PO
[2017-04-08 07:52] VITALS: TEMP 36.5; O2SAT 95; Ht 180.3 cm; Wt 139.4 kg
--- NOTE | 2017-04-08 08:00 | EMERGENCY ROOM VISIT NOTE ---
History Report prepared by Denice: Gagan Strange Under the Supervision of: Dr. Bartolome Camacho M.D. First contact with patient: 07:48 Stated Complaint: CHEST PAIN History of Present Illness The patient is a 46 year old male with a history of MS, diabetes and hypertension who presents to the Emergency Room via EMS with complaints of an episode of chest pain that occurred earlier this morning. He says that the episode lasted about an hour and a half, and the pain was a 10 out of 10 in severity. The patient states that the pain felt like "squeezing across his chest ". He notes that the pain is now gone. He says that he was very short of breath during the episode, and was dizzy and sweating profusely as well. The patient adds that he has burning and tingling in his legs. The patient notes that he had episodes like this in the past, and was hospitalized in September of this year, and had his esophagus stretched, and was told that the pain may due to esophageal spasms. Per the patient's , the patient has never had a confirmed heart attack however. The patient denies any nausea or abdominal pain. He takes Aspirin daily, and was given 4 in the ambulance. The patient adds that he takes Prednisone for his MS. Source of History: patient, spouse/significant other Onset: Earlier this morning Position: chest Symptom Intensity: 10/10 Quality: other (squeezing) Timing: other (episode) Associated Symptoms: + diaphoresis, + SOB, No nausea, No abdominal pain Note: Associated symptoms: Dizzy during episode. Burning and tingling in legs. Review of Systems All systems have been listed, reviewed, and are negative other than those previously mentioned. Please see Additional Medical History Sheet. Past Medical & Surgical Medical Problems: (1) Asthma, mild intermittent (2) Coronary artery disease (3) Depression (4) DM type 2 (diabetes mellitus, type 2) (5) Dyslipidemia (6) HTN (hypertension) (7) Multiple sclerosis (8) Obesity (BMI 30-39.9) (9) Osteoarthritis Surgical Problems: (1) H/O arthroscopic knee surgery (2) S/P cardiac cath Family History CHF (congestive heart failure) FATHER Hypertension FATHER MOTHER Stroke [employer] P[employer] Social History Smoking Status: Never Smoker Alcohol Use: occasionally Drug Use: none Marital Status: Housing Status: lives with family Occupation Status: employed Current/Historical Medications Scheduled Amlodipine Besylate (Amlodipine Besylate), 10 MG PO DAILY Aspirin (Aspirin Ec), 81 MG PO DAILY Atorvastatin (Lipitor), 20 MG PO DAILY Bupropion (Wellbutrin Sr), 150 MG PO BID Celecoxib (Celecoxib), 200 MG PO BID Cetirizine (Zyrtec), 10 MG PO DAILY Cholecalciferol (Vitamin D3), 1,000 UNIT PO DAILY Gabapentin (Gabapentin), 900 MG PO TID Glatiramer Acetate (Copaxone), 40 MG INJ MWF Hydrochlorothiazide (Hydrochlorothiazide), 25 MG PO DAILY Lisinopril (Zestril), 40 MG PO DAILY Magnesium Oxide (Mag-Ox), 400 MG PO DAILY Metformin Hcl (Glucophage), 500 MG PO BID Montelukast Sodium (Singulair), 10 MG PO QAM Scheduled PRN Albuterol Sulfate (Proair Respiclick), 2 PUFFS INH QID PRN for SOB/Wheezing Cyclobenzaprine Hcl (Flexeril), 10 MG PO HS PRN for Muscle Spasms Nitroglycerin (Nitrostat), 0.4 MG SL DAILY PRN for chest pain Tramadol (Ultram), 50 MG PO Q6H PRN for Pain Allergies Coded Allergies: No Known Allergies (Verified , NITAA, 04/06/17) Physical Exam Vital Signs Date Time Temp Pulse Resp B/P (MAP) Pulse Ox O2 Delivery O2 Flow Rate FiO2 04/08/17 10:22 74 18 125/69 95 Room Air 04/08/17 09:22 74 18 129/76 96 Room Air 04/08/17 07:52 95 Room Air 04/08/17 07:52 36.5 83 20 118/75 95 Room Air 04/08/17 07:50 84 Physical Exam GENERAL: Patient awake, alert, oriented x 3. Patient follows commands. Patient does not appear toxic. Patient is adequately hydrated and well- nourished. SKIN: No erythema, pallor, cyanosis or rash HEENT: Normal head, pupils equal, reactive to light and accommodation. Ears normal. Oral cavity and posterior pharynx appear normal. Neck: Without adenopathy, no neck vein distention. LUNGS: Clear to auscultation. No wheezes, no rales, no rhonchi. HEART: No murmurs. No gallops. No rubs ABDOMEN: No masses, no rebound, no hepatomegaly or splenomegaly. EXTREMITIES: No signs of trauma. No pedal or pretibial edema. No calf or thigh tenderness. NEUROLOGIC: Cranial nerves II-XII within normal limits. No gross motor sensory function deficits. Medical Decision & Procedures ER Provider Diagnostic Interpretation: X ray results are stated below per my interpretation and the radiologist's interpretation. CHEST 2 VIEWS ROUTINE CLINICAL HISTORY: CHEST PAIN dyspnea COMPARISON STUDY: 10/09/2016 FINDINGS: The bones soft tissues and hemidiaphragms are normal. The cardiomediastinal silhouette is normal. The lungs are clear. The pulmonary vasculature is normal. IMPRESSION: Negative chest. The above report was generated using voice recognition software. It may contain grammatical, syntax or spelling errors. Electronically signed by: Pablo Sumner M.D. 04/08/2017 8:56 AM Dictated Date/Time: 04/08/2017 8:56 AM Laboratory Results 04/08/17 08:00 04/08/17 08:00 Test 04/08/17 08:00 04/08/17 09:55 Red Blood Count 5.72 M/uL (4.7-6.1) Mean Corpuscular Volume 80.6 fL (80-100) Mean Corpuscular Hemoglobin 26.9 pg (25-34) Mean Corpuscular Hemoglobin Concent 33.4 g/dl (32-36) RDW Standard Deviation 43.6 fL (36.4-46.3) RDW Coefficient of Variation 15.0 % (11.5-14.5) Mean Platelet Volume 11.4 fL (7.4-10.4) Anion Gap 10.0 mmol/L (3-11) Est Creatinine Clear Calc Drug Dose 98.3 ml/min Estimated GFR () 73.1 Estimated GFR (Non- 63.1 BUN/Creatinine Ratio 12.7 (10-20) Calcium Level 9.9 mg/dl (8.5-10.1) Bedside Troponin I < 0.030 ng/ml (0-0.045) Laboratory results as stated above per my review. ECG Indication: chest pain Rate (beats per minute): 85 Rhythm: sinus rhythm Findings: no acute ischemic change, left axis deviation, no ectopy ED Course 0749: Past medical records reviewed. The patient was evaluated in room B3B. A complete history and physical examination was performed. 0805: I reevaluated the patient and spoke with his family. 1030: Upon reevaluation, the patient appeared to be resting comfortably. I discussed today's findings with him. He verbalized agreement of the treatment plan. He was discharged home. Medical Decision I considered multiple diagnoses including myocardial infarction, chest wall pain , pericarditis, myocarditis, aortic emergencies, pulmonary embolism, congestive heart failure, GI causes, and other significant cardiopulmonary disorders. The patient is here after experiencing chest pain this morning. He described the pain as severe but it resolved prior to entry. Pain today is similar to what he experienced in the past and diagnosed as esophageal spasm. The patient recently has been taking prednisone for his MS. He took 4 doses this morning on the empty stomach. He and I both believe that this may have something to do with his with the pain he experienced this morning. He has had no pain while here in the ED. He had 2 sets of negative troponins. EKG is unremarkable. Chest x-ray also was unremarkable. Medication Reconcilliation Current Medication List: was personally reviewed by me Blood Pressure Screening Patient's blood pressure: Normal blood pressure Impression Primary Impression: Esophageal spasm Scribe Attestation The scribe's documentation has been prepared under my direction and personally reviewed by me in its entirety. I confirm that the note above accurately reflects all work, treatment, procedures, and medical decision making performed by me. Departure Information Dispostion Home / Self-Care Referrals Kumar Norman M.D. (PCP) Patient Instructions ED Spasm Esophageal, My [facility] Additional Instructions Continue all of your current medications as prescribed. Do not take multiple doses of prednisone together and only take prednisone after food. Follow-up with your family physician. Return here sooner if your pain gets worse.
[2017-04-08 08:57] LABS: HEMATOCRIT 46.1 % (42-52); MEAN CELL VOLUME 80.6 fL (80-100); MEAN CORPUSCULAR HEMOGLOBIN 26.9 pg (25-34); MEAN CORPUSCULAR HGB CONC 33.4 g/dl (32-36); MEAN PLATELET VOLUME 11.4 fL (7.4-10.4); PLATELET COUNT 191 K/uL (130-400); RED BLOOD COUNT 5.72 M/uL (4.7-6.1); WHITE BLOOD COUNT 12.81 K/uL (4.8-10.8)
--- NOTE | 2017-04-08 08:57 | DIAGNOSTIC IMAGING REPORT ---
CHEST 2 VIEWS ROUTINE CLINICAL HISTORY: CHEST PAIN dyspnea COMPARISON STUDY: 10/09/2016 FINDINGS: The bones soft tissues and hemidiaphragms are normal. The cardiomediastinal silhouette is normal. The lungs are clear. The pulmonary vasculature is normal. IMPRESSION: Negative chest. The above report was generated using voice recognition software. It may contain grammatical, syntax or spelling errors. Electronically signed by: Pablo Sumner M.D. 04/08/2017 8:56 AM Dictated Date/Time: 04/08/2017 8:56 AM
[2017-04-08 09:18] LABS: BUN/CREATININE RATIO 12.7 (10-20); CALCIUM 9.9 mg/dl (8.5-10.1); CREATININE 1.34 mg/dl (0.60-1.40); POTASSIUM 3.7 mmol/L (3.5-5.1)
[2017-04-08 10:22] VITALS: BP 125/69; PULSE 74; O2SAT 95
== END 2017-04-08 10:44 | disposition home or self-care (01) ==
LOC: C.EDB 07:37 → EDBD 07:37 → C.EDB 10:44
DX: K22.4 Dyskinesia of esophagus (principal); E11.9 Type 2 diabetes mellitus without complications; I10 Essential (primary) hypertension; G35 Multiple sclerosis; J45.909 Unspecified asthma, uncomplicated; I25.10 Atherosclerotic heart disease of native coronary artery without angina pectoris; E78.5 Hyperlipidemia, unspecified; E66.9 Obesity, unspecified; M19.90 Unspecified osteoarthritis, unspecified site; Z79.82 Long term (current) use of aspirin; Z79.84 Long term (current) use of oral hypoglycemic drugs; Z79.52 Long term (current) use of systemic steroids; Z82.49 Family history of ischemic heart disease and other diseases of the circulatory system; Z82.3 Family history of stroke

== ENCOUNTER 2019-05-31 18:26 | Inpatient (IN) ==
[2019-05-31] MEDS ORDERED: HEPARIN SOD (PORCINE) 1000 UNIT/ML 10 ML VIAL IV ONE (18:30)
[2019-05-31] MEDS ORDERED: SODIUM CHLORIDE 0.9% 500 ML IV SCH (18:30)
[2019-05-31] MEDS ORDERED: fentaNYL citrate 100 MCG/2 ML VIAL IV STA (18:31)
[2019-05-31] MEDS ORDERED: NiCARDipine HCL INJ 2.5 MG/ML 10 ML AMP ONE (18:35)
[2019-05-31] MEDS ORDERED: MIDAZOLAM HCL 1 MG/ML 2ML VIAL ONE (18:35)
[2019-05-31] MEDS ORDERED: HEPARIN (PORCINE) 1000 UNIT/ML 10 ML (CATH LAB USE ONLY) ONE (18:35)
[2019-05-31] MEDS ORDERED: fentaNYL citrate 100 MCG/2 ML VIAL ONE (18:35)
[2019-05-31] MEDS ORDERED: NITROGLYCERIN/D5W 100MCG/ML 20ML SYR ONE (18:36)
[2019-05-31] MEDS: TICAGRELOR 90 MG TAB PO ONE ×2 (18:39→18:46)
[2019-05-31 18:53] LABS: Hematocrit (blood only) 46.3 % (42-52); Hemoglobin 15.3 g/dL (14.0-18.0); Immature Granulocytes # (auto) 0.02 K/uL (0.00-0.02); Immature Granulocytes % (auto) 0.2 %; Lymphocytes # (auto) 0.79 K/uL (1.2-3.4); Lymphocytes % (auto) 6.9 %; Mean Corpuscular Hemoglobin 27.6 pg (25-34); Mean Corpuscular Volume 83.6 fL (80-100); Mean Platelet Volume 11.8 fL (7.4-10.4); Monocytes # (auto) 0.32 K/uL (0.11-0.59); Monocytes % (auto) 2.8 %; Neutrophils # (auto) 10.27 K/uL (1.4-6.5); Neutrophils % (auto) 90.1 %; Platelet Count 178 K/uL (130-400); RDW Coefficient of Variation 14.7 % (11.5-14.5); RDW Standard Deviation 45.3 fL (36.4-46.3); Red Blood Count 5.54 M/uL (4.7-6.1)
--- NOTE | 2019-05-31 18:54 | Pre Anesthesia Assessment ---
Date of Service May 31, 2019 Pre Sedation Assessment Vital Signs Temp Pulse Pulse Resp BP BP Pulse Ox 05/31/19 18:48 69 26 H 135/77 94 05/31/19 18:47 94 05/31/19 18:28 97.7 F 65 20 126/77 96 Cardiovascular RRR, no murmur, no edema Respiratory normal respiratory effort, lungs clear to auscultation Pre-Sedation Airway Assessment Smoking Status: Never smoker Hx Sleep Apnea: No Hx Difficult Intubation: No Short, Thick Neck: No Thyromental Distance: > or= 3.5 Finger Breadths Oral Cavity: + WNL Mallampati Class: III Procedure Planning Contraindications for Sedation: none Current Medications Reviewed: Yes Notes The planned sedation has been discussed with the patient. Informed Consent was obtained. I have identified the patient, determined the appropriateness of sedation and have assessed the patient immediately prior to the procedure. All medicine(s) and interventions are by my order.
--- NOTE | 2019-05-31 18:56 | Cardiology Consultation ---
Date of Consultation May 31, 2019 Assessment & Plan (1) Acute WA: Presentation consistent with Acute WA and recommend proceeding with emergent cardiac catheterization and likely primary PCI. No apparent contraindications to procedure. Discussed risks, benefits, alternatives of procedure with patient and they are willing to proceed. Given IV heparin in the ED. Further recommendations pending findings of coronary angiography. History of Present Illness Attending Physician: Trevin Fink MD History of Present Illness Mr. Martínez is a 49-year-old man here with acute chest pain and ECG concerning for acute WA. Patient seen emergently in the ED after heart alert activated in route. Patient previously underwent a cardiac catheterization by Dr. Basil lyles in November 2008 in the setting of chest pain. At that time found to have only luminal irregularities. Since that time has had occasional episodes of chest pain including one reportedly several years ago where was prescribed sublingual nitroglycerin. Cardiac risk factors include type 2 diabetes, hypertension, obesity. Other medical issues include mild asthma, MS. Was seen in the ED yes terday with nonspecific symptoms thought to have a MS flare, started on prednisone. Chest pain began less than an hour before arrival during exertion. Describes pain is 10 pain with associated nausea, initial EKG and ambulance showed greater than [address] elevation anteriorly. ST elevations resolved on subsequent EKG in route and on arrival. Patient still having 7-10 chest pain when seen in the ED. Hemodynamically stable. Family history: Father had multiple stents placed in 50s/60s and had heart failure. Social history: Denies tobacco or alcohol. 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 Allergies Allergy/AdvReac Type Severity Reaction Status Date / Time No Known Allergies Allergy NKA Verified 10/05/18 10:50 Home Medications Home Medications Medication Instructions Recorded Confirmed Type albuterol sulfate [ProAir HFA] 2 puff INHALATION QID 10/05/18 05/31/19 History amlodipine 10 mg PO DAILY 10/05/18 05/31/19 History aspirin [Aspir-81] 81 mg PO DAILY 10/05/18 05/31/19 History atorvastatin 20 mg PO DAILY 10/05/18 05/31/19 History celecoxib 200 mg PO BID 10/05/18 05/31/19 History cholecalciferol (vitamin D3) 1,000 unit PO DAILY 10/05/18 05/31/19 History [Vitamin D3] fluticasone propionate [Flonase 2 spray INTRANASAL DAILY 10/05/18 05/31/19 History Allergy Relief] gabapentin 600 mg PO TID 10/05/18 05/31/19 History hydrochlorothiazide 25 mg PO DAILY 10/05/18 05/31/19 History lisinopril 40 mg PO DAILY 10/05/18 05/31/19 History magnesium oxide 400 mg PO DAILY 10/05/18 05/31/19 History metformin 500 mg PO BID 10/05/18 05/31/19 History montelukast 10 mg PO PM 10/05/18 05/31/19 History nitroglycerin 1 dose SUBLINGUAL UD PRN 10/05/18 05/31/19 History tramadol 50 mg PO Q6H PRN 10/05/18 05/31/19 History escitalopram oxalate 10 mg tablet 10 mg PO DAILY 30 Days #30 tab 05/28/19 05/31/19 Rx dimethyl fumarate [Tecfidera] 240 mg PO BID 05/31/19 05/31/19 History prednisone See Rx Instructions .ROUTE .COMPLEX 05/31/19 05/31/19 History Patient History Medical History Asthma, mild intermittent (Chronic) Coronary artery disease (Chronic) "minimal disease per cath [facility] 12/06/08" Depression (Chronic) DM type 2 (diabetes mellitus, type 2) (Chronic) Dyslipidemia (Chronic) HTN (hypertension) (Chronic) Multiple sclerosis (Chronic) Obesity (BMI 30-39.9) (Chronic) Osteoarthritis (Chronic) Surgical History H/O arthroscopic knee surgery (Chronic) S/P cardiac cath (Chronic) "2008- minimal luminal irregularities LAD without obstructive disease" Family History Mother Hypertension Social History Preferred Language: B[place]udian Communication Ability: Effective Visual Impairment: No Limitations Hearing Ability: Normal Medical Billing Supervisor Required: No Beliefs That Will Affect Care: None Current Living Situation: Significant Other Current Living Situation Comment: lives with girlfriend, in process of getting Other Information That Helps Us Care for You: No Feels Safe at Home: Yes Safety Concerns: Feels Safe At This Time Smoking Status: Never smoker Hx Alcohol Use: No Hx Substance Use: No Review of Systems Review of Systems: Not obtained in the setting of emergent situation Physical Exam Physical Exam: General: Comfortable, no acute distress HEENT: Sclerae anicteric, mucous membranes moist Lungs: Clear to auscultation bilaterally, no rhonchi or wheezes Cardiac: Regular rate and rhythm, no murmurs. Abdomen: Soft, nontender, nondistended, positive bowel sounds. Extremities: Warm, well perfused, no edema. 2+ radial pulses Skin: No rashes or lesions. Neuro: Nonfocal Psych: Alert orient x3, normal affect and mood Results & Data Vital Signs (Past 12 Hours) Vital Signs Temp Pulse Pulse Resp BP BP Pulse Ox 05/31/19 18:48 69 26 H 135/77 94 05/31/19 18:47 94 05/31/19 18:28 97.7 F 65 20 126/77 96 PG Care Time/CCT Total # of Minutes Spent Total Time Spent with Patient: Total time spent is greater than 50% in coordination of care (as documented) at patient's floor/unit and/or counseling patient:
[2019-05-31 18:57] LABS: iSTAT Creatinine 1.4 mg/dl (0.6-1.3); iSTAT Hemoglobin 16.3 g/dl (14.0-18.0); iSTAT Ionized Calcium 1.21 mmol/l (1.12-1.32); iSTAT Potassium 4.4 mEq/L (3.3-5.0)
--- NOTE | 2019-05-31 19:02 | XRay Report ---
XR chest 1V portable HISTORY: 49 years-old Male Chest pain acute atypical chest pain COMPARISON: Chest radiograph 05/30/2019 TECHNIQUE: Portable AP view of the chest FINDINGS: Cardiac silhouette is enlarged. Pulmonary vascular congestion is suggested. There is no pneumothorax, pleural effusion or focal airspace consolidation. Mild degenerative changes of the shoulders and spi ne. IMPRESSION: Cardiomegaly with suggestion of mild pulmonary vascular congestion. ACT 112: Negative or not required by law. The above report was generated using voice recognition software. It may contain grammatical, syntax o r spelling errors. Electronically signed by: Home Tyler M.D. 05/31/2019 7:00 PM
[2019-05-31] MEDS ORDERED: EPTIFIBATIDE 2 MG/ML 10 ML VIAL (CATH LAB USE ONLY) IV ONE (19:06)
[2019-05-31 19:08] LABS: INR 1.1 (0.9-1.1); Partial Thromboplastin Ratio 0.7; Partial Thromboplastin Time < 20.0 Seconds (21.0-31.0); Prothrombin Time 10.9 Seconds (9.0-12.0)
[2019-05-31 19:34] LABS: Alanine Aminotransferase 28 U/L (12-78); Aspartate Aminotransferase 20 U/L (15-37); BUN Creatinine Ratio 12.5 (10-20); Blood Urea Nitrogen 21 mg/dl (7-18); Calcium 9.4 mg/dl (8.5-10.1); Carbon Dioxide 27 mmol/L (21-32); Chloride 107 mmol/L (98-107); Creatinine Clr Calc Pharmacy 79.1 ml/min; Est GFR (African American) 55.7; Glucose 127 mg/dl (70-99); Lipase 647 U/L (73-393); Magnesium 2.1 mg/dl (1.8-2.4); Potassium 4.7 mmol/L (3.5-5.1); Sodium 142 mmol/L (136-145)
[2019-05-31 19:43] LABS: Alkaline Phosphatase 68 U/L (45-117); Bilirubin,Total 0.6 mg/dl (0.2-1); Creatine Kinase 448 U/L (39-308); Creatine Kinase MB 3.9 ng/ml (0.5-3.6); Globulin 3.9 gm/dl (2.5-4.0); Thyroid Stimulating Hormone 0.705 uIu/ml (0.300-4.500); Total Protein 7.9 gm/dl (6.4-8.2); Troponin I < 0.015 ng/ml (0-0.045)
[2019-05-31 19:51] LABS: NT Pro B Type Natriuretic Pept 63 pg/ml (0-450)
[2019-05-31] MEDS ORDERED: EPTIFIBATIDE 0.75 MG/ML 75MG VIAL (CATH LAB USE ONLY) ONE (19:53)
[2019-05-31] MEDS ORDERED: AMIODARONE HCL INJ 50 MG/ML 3 ML VIAL (CATH LAB USE ONLY) ONE (20:20)
[2019-05-31] MEDS ORDERED: METOPROLOL TARTRATE 1 MG/ML VIAL IV ONE (20:28)
[2019-05-31] MEDS ORDERED: AMIODARONE 360MG / 200ML D5W (CATH LAB USE ONLY) ONE (20:30)
[2019-05-31] MEDS ORDERED: TICAGRELOR 90 MG TAB PO ONE (20:33)
[2019-05-31] MEDS ORDERED: NITROGLYCERIN SL 0.4 MG/TAB TAB SL PRN (20:37)
[2019-05-31] MEDS ORDERED: EPTIFIBATIDE BOLUS/DRIP IV STA (20:37)
[2019-05-31] MEDS ORDERED: ONDANSETRON INJ 2 MG/ML 2 ML VIAL IV PRN (20:42)
[2019-05-31] MEDS ORDERED: ACETAMINOPHEN 325 MG TAB PO PRN (20:42)
[2019-05-31] MEDS ORDERED: SODIUM CHLORIDE 0.9% 1000ML 1,000 ML IV SCH (20:45)
[2019-05-31] MEDS ORDERED: ICU PROTOCOL FOR HYPERGLYCEMIA PRN ×2 (20:46→21:18)
--- NOTE | 2019-05-31 20:51 | Post Anesthesia Assessment ---
Date of Service May 31, 2019 Post Sedation Assessment Vital Signs Temp Pulse Pulse Resp BP BP Pulse Ox 05/31/19 20:44 128 H 151/95 H 05/31/19 18:48 69 26 H 135/77 94 05/31/19 18:47 94 05/31/19 18:28 97.7 F 65 20 126/77 96 Recovery Score Activity: Moves 4 extremities Respiration: Deep Breath/Cough Circulation: +/-20% PreAnes Value Consciousness: Fully Awake Oxygen Saturation: O2 needed for >90% Discharge Sedation Level of Care: Fast Track Phase II Post Sedation Plan On clinical assessment, the patient appears to have tolerated the sedation without complications. Patient is recovering as anticipated. Patient will continue to be monitored by nursing and may be discharged when sedation discharge criteria are met per below protocol. Upon Completions of procedure up to 15 minutes continue every 5 minute vital signs and the P.A.R. score; then discharge to a Phase I or Fast Track to Phase II per the following guidelines: * Discharge Patient to appropriate Phase II area if PAR is 8 or greater or return to pre- procedure baseline. The post - procedure orders will be as directed. * If PAR score is less than 8 or not return to pre-procedure baseline then patient will follow Phase I monitoring till PAR is reached for Phase II. The Phase I may be done in procedure room or may call to secure a Phase I area. * If naloxone or flumazenil are used for reversal, hold in Phase I for continued monitoring from when last reversal dose was given for a minimum of 60 minutes or longer pending the nurse and/or physician discretion of patient condition before discharge to Phase II. Please call the Sedation Physician to re-evaluate and complete post-note for discharge to Phase II area. Do NOT discharge from procedure sedation or Phase 1 until post- sedation evaluation note is complete by procedure /sedation MD Sedation Discharge Instructions to be given to the patient at discharge to home.
--- NOTE | 2019-05-31 20:54 | Post Operative Brief Note ---
Cardiology Brief Post Op Date of Surgery May 31, 2019 Pre & Post Diagnosis Operation Date: 05/31/19 18:30 <No data on this case meets the specified criteria> Procedure -- Gerontological Nurse Practitioner Trevin Fink MD Beet End Supervisor [facility] Estimated Blood Loss 15 Findings Consistent with Post-Op Diagnosis Severe thrombotic proximal to mid LAD disease at bifurcation with large 1st diagonal. Distal thrombus in 1st diagonal with 100% occlusion. Successful PCI of proximal to mid LAD with single SAULO (3.5 x 33 Xience Gia; post-dilated with 4.5 NC). PTCA of ostium of 1st diagonal with 2.5 balloon. VFib x 1 at end of procedure requiring defibrillation x1. Anesthesia Type RN Sedation Complications none Disposition Accompanied Patient To Recovery: No Disposition: Surgical ICU
[2019-05-31] MEDS ORDERED: EPTIFIBATIDE 75 MG/100 ML VIAL IV SCH (21:00)
--- NOTE | 2019-05-31 21:08 | Critical Care Consultation ---
Date of Consultation May 31, 2019 Assessment & Plan (1) ST elevation TX (STEMI): Reason Critically Ill: 49-year-old male admitted for ST elevation TX, status post heart cath with SAULO x1 to LAD Neuro - [facility] ICU: Negative MSdiagnosed MS flare in ED yesterday, given Solu-Medrol and prednisone taper -will continue Tecfidera -Holding prednisone for now following TX Cardiac - STEMIpatient displayed ST elevation in anterior leads on initial EKG, now resolved post-cath with SAULO x1 to LAD -Patient received Brilinta but with and Integrilin infusion -Troponins negative initially, will trend for peak -continue Brilinta, ASA, Lipitor, MTP -Holding prednisone and NSAID -Follow-up lipid panel and hemoglobin A1c -Follow-up echo in a.m. -We will monitor on telemetry -Cardiac rehab consulted -Follow-up cardiology recs V- fibpatient had episode of ventricular fibrillation in Transportation Sales Consultant requiring defibrillation -No further events at this time, continue to monitor on telemetry -Continue amiodarone drip Atrial fibrillationpatient has no known history of atrial fibrillation, likely related post cath -TSH within normal limits -Rate currently controlled on amiodarone drip will continue, schedule MTP -Continue to monitor on telemetry -May consider anticoagulation 24 hours from Brilinta bolus if unresolved HTNholding HCTZ and lisinopril for LIDIA -We will hold amlodipine for now per cardiology -Continue MTP Respiratory - Maintaining oxygen saturation on room air History of asthma, PRN albuterol if needed, scheduled p.m. Singulair GI - Heart healthy diabetic diet RENAL/LYTES - AKIinitial creatinine 1.6 with prior baseline of 1.0 -Holding HCTZ, lisinopril, metformin -We will continue IV fluid resuscitation -Monitor with routine BMP - Strict I's and O's ENDO - DM type IIpatient normally on oral metformin, will hold considering LIDIA -Follow-up hemoglobin A1c -hyperglycemic protocol -Diabetic diet -Sliding scale insulin No history of thyroid disease, TSH within normal limit HEME - H&H stable, monitor routine CBCs ID - No indication for infectious process at this time LINES/IV ACCESS - Peripheral IVs DVT PROPHYLAXIS - SCDs, hold anticoagulation following Brilinta infusion per 24 hours I have personally spent 38 minutes of critical care time in the direct management of this patient. This is a life/limb threatening event. This includes time spent evaluating patient, direct bedside care, chart review, placing orders, interpretation of diagnostic studies, discussion with consultants, patient, and family members, as well as other required patient management activities. This time is exclusive of all separately billable procedures, and teaching time and separate from and in addition to any other critical care service time. Thank you for allowing us to participate in the care of this patient. Please refer to my attending physician's documentation for any further recommendations. (2) LIDIA (acute kidney injury): (3) Atrial fibrillation: (4) Multiple sclerosis: (5) DM type 2 (diabetes mellitus, type 2): (6) HTN (hypertension): Supervising Physician Co-Signing Physician Notes Please refer to progress note dated 06/01/2019. History of Present Illness Attending Physician: Maribel Tavarez MD History of Present Illness 49-year-old male with PMH of DM type II, CAD, MS, asthma presents to the emergency department with complaint of chest pain. He reports that he had an sudden onset of left-sided chest pain with radiation to the neck earlier this afternoon at rest with associated diaphoresis, nausea, and shortness of breath. There was ST elevation in the anterior leads on his EKG and heart alert was initiated. In the Transportation Sales Consultant patient was found to have 80% mid LAD stenosis with heavy thrombus burden complicated by distal emboli and underwent successful PCI of proximal to mid LAD with a single SAULO and PTCA of second diagonal ostium. Following the cardiac catheterization the patient had an episode of V. fib and was successfully defibrillated. Patient has remained hemodynamically stable since that episode. On arrival to the ICU, patient was alert and comfortable. EKG revealed atrial fibrillation with controlled rate, no further ST elevation. He remains on amiodarone and Integrilin drips. Patient currently denies chest pain, palpitations, shortness of breath, syncope or dizziness, nausea or vomiting, abdominal pain. He does report's that he was diagnosed in the emergency department yesterday for MS flare and was prescribed prednisone taper. Patient to remain ICU overnight for close monitoring and management following STEMI with stent placement. Allergies Allergy/AdvReac Type Severity Reaction Status Date / Time No Known Allergies Allergy NKA Verified 10/05/18 10:50 Home Medications Home Medications Medication Instructions Recorded Confirmed Type albuterol sulfate [ProAir HFA] 2 puff INHALATION QID 10/05/18 05/31/19 History amlodipine 10 mg PO DAILY 10/05/18 05/31/19 History aspirin [Aspir-81] 81 mg PO DAILY 10/05/18 05/31/19 History atorvastatin 20 mg PO DAILY 10/05/18 05/31/19 History celecoxib 200 mg PO BID 10/05/18 05/31/19 History cholecalciferol (vitamin D3) 1,000 unit PO DAILY 10/05/18 05/31/19 History [Vitamin D3] fluticasone propionate [Flonase 2 spray INTRANASAL DAILY 10/05/18 05/31/19 History Allergy Relief] gabapentin 600 mg PO TID 10/05/18 05/31/19 History hydrochlorothiazide 25 mg PO DAILY 10/05/18 05/31/19 History lisinopril 40 mg PO DAILY 10/05/18 05/31/19 History magnesium oxide 400 mg PO DAILY 10/05/18 05/31/19 History metformin 500 mg PO BID 10/05/18 05/31/19 History montelukast 10 mg PO PM 10/05/18 05/31/19 History nitroglycerin 1 dose SUBLINGUAL UD PRN 10/05/18 05/31/19 History tramadol 50 mg PO Q6H PRN 10/05/18 05/31/19 History escitalopram oxalate 10 mg tablet 10 mg PO DAILY 30 Days #30 tab 05/28/19 05/31/19 Rx dimethyl fumarate [Tecfidera] 240 mg PO BID 05/31/19 05/31/19 History prednisone See Rx Instructions .ROUTE .COMPLEX 05/31/19 05/31/19 History Patient History Medical History Asthma, mild intermittent (Chronic) Coronary artery disease (Chronic) "minimal disease per cath [facility] 12/06/08" 05/31/2019-STEMI s/p SAULO to LAD and PTCA to first diagonal Depression (Chronic) DM type 2 (diabetes mellitus, type 2) (Chronic) Dyslipidemia (Chronic) HTN (hypertension) (Chronic) Multiple sclerosis (Chronic) Obesity (BMI 30-39.9) (Chronic) Osteoarthritis (Chronic) Surgical History H/O arthroscopic knee surgery (Chronic) S/P cardiac cath (Chronic) "2009- minimal luminal irregularities LAD without obstructive disease" Family History Mother Hypertension Social History Preferred Language: Macedonian Communication Ability: Effective Visual Impairment: No Limitations Hearing Ability: Normal Paper Carrier Required: No Beliefs That Will Affect Care: None Current Living Situation: Significant Other Current Living Situation Comment: lives with girlfriend, in process of getting Other Information That Helps Us Care for You: No Feels Safe at Home: Yes Safety Concerns: Feels Safe At This Time Smoking Status: Never smoker Hx Alcohol Use: No Hx Substance Use: No Review of Systems Review of Systems: All systems reviewed & are unremarkable except as noted in HPI & below Physical Exam Constitutional: + obese, cooperative and comfortable Eyes: PERRL, conjunctivae normal, anicteric sclerae ENMT: external ear and nose normal, oropharynx normal Neck: trachea midline, no thyromegaly Respiratory: normal respiratory effort, lungs clear to auscultation Cardiovascular: Rate/Rhythm: + irregularly irregular Heart Sounds: normal S1 and normal S2 Vessels: no JVD Extremities: normal capillary refill; no edema Gastrointestinal (Abdomen): normal bowel sounds, soft, nontender, no hepatosplenomegaly Skin: no rashes, warm and dry Neurologic: PERRL, EOMI, accommodation nl, no face palsy, no dysarthria Psychiatric: A+Ox3, euthymic affect Results & Data Vital Signs (Past 12 Hours) Vital Signs Temp Pulse Pulse Resp BP BP Pulse Ox 05/31/19 20:44 128 H 151/95 H 05/31/19 18:48 69 26 H 135/77 94 05/31/19 18:47 94 05/31/19 18:28 36.5 C 65 20 126/77 96 Coding Level of Care Code Critical Care 1st 30-[address] elevation [place] (STEMI) I21.3 Involved coronary artery: unspecified coronary artery LIDIA (acute kidney injury) N17.9 Atrial fibrillation I48.91 Multiple sclerosis G35 DM type 2 (diabetes mellitus, type 2) E11.9 HTN (hypertension) I10 (1) ST elevation [place] (STEMI) Involved coronary artery: unspecified coronary artery Qualified Code(s): I21.3 - ST elevation (STEMI) myocardial infarction of unspecified site
--- NOTE | 2019-05-31 21:46 | History & Physical Report ---
Date of Service May 31, 2019 Assessment & Plan (1) ST elevation [place] (STEMI): -Admit to ICU -Patient presenting with sudden onset of chest pain, found to have ST elevations in the anterior leads -Heart alert called and patient was taken to the Brake Operator emergently which showed severe thrombotic proximal to mid LAD disease at bifurcation with large 1st diagonal and distal thrombus in 1st diagonal with 100% occlusion -s/p successful PCI of proximal to mid LAD with single SAULO and PTCA of ostium of 1st diagonal -Post cardiac catheterization, patient went into V. fib and required defibrillation. Was also started on amiodarone. -Currently awake and oriented, hemodynamically stable. EKG demonstrates atrial fibrillation. -continue to cycle cardiac enzymes, check resting echo -Aspirin, statin, Brilinta, beta-wali -Further management as per Dr. Fink (2) Atrial fibrillation: -likely post op a-fib -should convert while on amio gtt -continue to monitor on tele -if prolonged, consider anticoagulation (3) LIDIA (acute kidney injury): -Creatinine 1.6 (Baseline ~ 1.0) -Likely prerenal in nature -Continue IVF, holding lisinopril and HCTZ -Monitor renal functions (4) HTN (hypertension): -BP controlled -holding lisinopril/HCTZ for now due to LIDIA -hold amlodipine for now as well -started on beta wali as above (5) DM type 2 (diabetes mellitus, type 2): -hgb a1c 5.7 03/2019 -Holding oral agents and utilize NovoLog per protocol while hospitalized (6) Multiple sclerosis: -Was evaluated in the ED yesterday for MS flare -Received Solu-Medrol 1 g and discharged on prednisone taper -Due to ACS, will hold steroids for now -continue Tecfidera (7) Asthma, mild intermittent: -No signs of acute exacerbation -Does not use routine inhalers at home (8) Depression: -Continue escitalopram (9) DVT prophylaxis: -SCDs for now due to antiplatelets and Integrilin and received for cardiac cath History of Present Illness Chief Complaint: Chest Pain Primary Care Provider: Kumar Norman MD 49-year-old male who presents the ED with chest pain. Patient reports he was sitting and watching TV when he had sudden onset of left-sided chest pain with some radiation to the neck. He reports there is also associated diaphoresis, nausea, shortness of breath. EMS was called and patient was brought to the ED for further evaluation. EKG for EMS demonstrated ST elevation in the anterior leads. Heart alert was called and patient was taken to the Brake Operator emergently. Cardiac cath demonstrated severe thrombotic proximal to mid LAD disease at bifurcation with large 1st diagonal and distal thrombus in 1st diagonal with 100% occlusion. Patient underwent successful PCI of proximal to mid LAD with single SAULO and PTCA of ostium of 1st diagonal. Post cardiac catheterization, patient went into V. fib and required defibrillation. Patient was successfully defibrillated with return to NSR. He is currently hemodynamically stable. Patient was evaluated in the ICU. EKG demonstrates atrial fibrillation. He reports he has some mild residual chest pain rating it a #1/10. No shortness of breath. Denies lightheadedness and dizziness. No diaphoresis or nausea. Yesterday, patient was evaluated in the ED for frequent falls and was diagnosed with an MS flare. Patient received Solu-Medrol 1 g IV in the ED and discharged on prednisone taper. Patient denies any other recent illnesses, fevers, chills. No abdominal pain, vomiting, diarrhea. Denies any urinary symptoms. Allergies Allergy/AdvReac Type Severity Reaction Status Date / Time No Known Allergies Allergy NKA Verified 10/05/18 10:50 Home Medications Home Medications Medication Instructions Recorded Confirmed Type albuterol sulfate [ProAir HFA] 2 puff INHALATION QID 10/05/18 05/31/19 History amlodipine 10 mg PO DAILY 10/05/18 05/31/19 History aspirin [Aspir-81] 81 mg PO DAILY 10/05/18 05/31/19 History atorvastatin 20 mg PO DAILY 10/05/18 05/31/19 History celecoxib 200 mg PO BID 10/05/18 05/31/19 History cholecalciferol (vitamin D3) 1,000 unit PO DAILY 10/05/18 05/31/19 History [Vitamin D3] fluticasone propionate [Flonase 2 spray INTRANASAL DAILY 10/05/18 05/31/19 History Allergy Relief] gabapentin 600 mg PO TID 10/05/18 05/31/19 History hydrochlorothiazide 25 mg PO DAILY 10/05/18 05/31/19 History lisinopril 40 mg PO DAILY 10/05/18 05/31/19 History magnesium oxide 400 mg PO DAILY 10/05/18 05/31/19 History metformin 500 mg PO BID 10/05/18 05/31/19 History montelukast 10 mg PO PM 10/05/18 05/31/19 History nitroglycerin 1 dose SUBLINGUAL UD PRN 10/05/18 05/31/19 History tramadol 50 mg PO Q6H PRN 10/05/18 05/31/19 History escitalopram oxalate 10 mg tablet 10 mg PO DAILY 30 Days #30 tab 05/28/19 05/31/19 Rx dimethyl fumarate [Tecfidera] 240 mg PO BID 05/31/19 05/31/19 History prednisone See Rx Instructions .ROUTE .COMPLEX 05/31/19 05/31/19 History Past Med/Surg History Medical History Asthma, mild intermittent (Chronic) Coronary artery disease (Chronic) "minimal disease per cath [facility] 12/06/08" 05/31/2019-STEMI s/p SAULO to LAD and PTCA to first diagonal Depression (Chronic) DM type 2 (diabetes mellitus, type 2) (Chronic) Dyslipidemia (Chronic) HTN (hypertension) (Chronic) Multiple sclerosis (Chronic) Obesity (BMI 30-39.9) (Chronic) Osteoarthritis (Chronic) Surgical History H/O arthroscopic knee surgery (Chronic) S/P cardiac cath (Chronic) "2008- minimal luminal irregularities LAD without obstructive disease" Family History Mother Hypertension Social History Preferred Language: Urdu Communication Ability: Effective Visual Impairment: No Limitations Hearing Ability: Normal Plastic Molder Required: No Beliefs That Will Affect Care: None Current Living Situation: Significant Other Current Living Situation Comment: lives with girlfriend, in process of getting Other Information That Helps Us Care for You: No Feels Safe at Home: Yes Safety Concerns: Feels Safe At This Time Smoking Status: Never smoker Hx Alcohol Use: No Hx Substance Use: No Review of Systems Review of Systems: ROS per HPI, all other systems reviewed and negative Physical Exam Physical Exam: Please refer Dr. Tavarez's addendum for physical exam. Results & Data Vital Signs (Past 12 Hours) Vital Signs Temp Pulse Pulse Resp BP BP Pulse Ox 05/31/19 20:44 128 H 151/95 H 05/31/19 18:48 69 26 H 135/77 94 05/31/19 18:47 94 05/31/19 18:28 36.5 C 65 20 126/77 96 Laboratory Results Short CBC 05/31/19 Range/Units 18:39 WBC 11.40 H (4.8-10.8) K/uL Hgb 15.3 (14.0-18.0) g/dL Hct 46.3 (42-52) % Plt Count 178 (130-400) K/uL BMP 05/31/19 18:39 Sodium 142 Potassium 4.7 D Chloride 107 Carbon Dioxide 27 BUN 21 H Creatinine 1.65 H D Glucose 127 H Calcium 9.4 Cardiac Enzymes 05/31/19 Range/Units 18:39 Total Creatine Kinase 448 H (39-308) U/L CK-MB (CK-2) 3.9 H (0.5-3.6) ng/ml Troponin I < 0.015 (0-0.045) ng/ml Liver Function 05/31/19 Range/Units 18:39 Total Bilirubin 0.6 (0.2-1) mg/dl AST 20 (15-37) U/L ALT 28 (12-78) U/L Alkaline Phosphatase 68 (45-117) U/L Albumin 4.0 (3.4-5.0) gm/dl Diagnostic Findings CXR IMPRESSION: Cardiomegaly with suggestion of mild pulmonary vascular congestion. Code Status & VTE Plan VTE Prophylaxis Plan VTE Prophylaxis will be ordered: Yes Supervising Physician Co-Signing Physician Notes Pt was seen and examined. Agreed with Mira DASH exam, assessment and plan. 49 yo with hx MS, HTN, Dyslipidemia, DAVE, diabetes present to the ER for chest pain. Pt said that chest said that chest pain started this morning while sitting watching TV. Pt described chest pain as sharp, radiated to the neck. Pt was in the ER yesterday and was diagnosed for MS flair and was discharged on short course of prednisone taper. EKG on admission revealed ST elevations in the anterior leads. Code heart alert called and pt was rushed to cardiac lab for emergency cardiac cath. Cardiac cath finding showed LAD -large caliber, proximal luminal irregularities, diffuse moderate earlymid disease with thrombotic 80% prior to takeoff of second diagonal. Distal luminal regularities as well from apex. Large second diagonal with 80% ostial stenosis and distal thrombus with acute 100% occlusion. Successful PCI of proximal to mid LAD across takeoff of second diagonal with single drug-eluting stent and PTCA of second diagonal ostium across stent struts with 2.[address] Fink. Patient went into V. fib and required defibrillation after cardiac cath. He was placed on amiodarone drip. Currently Pt is on Afib with rate control. Case discussed with Dr. Fink recommended to continue amiodarone and Brillinta. If after 24 hr he does not convert back to normal sinus rhythm, will consider to start on anticoagulant as per cardiology Dr. Fink. Currently pt denies any chest pain. Will continue monitor closely in the ICU. MD Corby (1) ST elevation [place] (STEMI) Involved coronary artery: unspecified coronary artery Qualified Code(s): I21.3 - ST elevation (STEMI) myocardial infarction of unspecified site
[2019-05-31] MEDS: METOPROLOL TARTRATE 25 MG TAB PO SCH (21:59)
[2019-05-31] MEDS ORDERED: GLUCOSE 40% GEL 15 GM TUBE PO PRN (22:03)
[2019-05-31] MEDS ORDERED: DEXTROSE 50% 50 ML SYRINGE IV PRN (22:03)
[2019-05-31] MEDS ORDERED: GLUCOSE 10 TABS/TUBE PO PRN (22:03)
[2019-05-31] MEDS ORDERED: CARBOHYDRATES FOR HYPOGLYCEMIA PO PRN (22:03)
[2019-05-31] MEDS ORDERED: GLUCAGON FOR INJ 1 MG VIAL SQ PRN (22:03)
--- NOTE | 2019-05-31 22:06 | Cardiac Catheterization ---
[facility] Data: Binder Stripper Hand Cardiac Status Clinical evaluation leading to the procedure CAD Presenation: STEMI Anginal Classification: CCS IV Heart Failure: No Cardiogenic Shock within 24 Hours: No Cardiac Arrest within 24 Hours: Yes Imaging Studies Past 6 Months: No Stress Studies Past 6 Months: No Diagnostic Physicians Name: Trevin Fink MD Status: Emergency Closure Device Percutaneous Entry Location: Radial Closure Device: Radial Band Recommendations: PCI without planned CABG PCI Indication: Immediate PCI for STEMI Lesion Segment Name: Mid LAD Culprit Artery: Yes Stenosis Prior to Rx (%): 80 Chronic Total Occlusion: No IVUS: Yes FFR: No Pre-Procedure GERARDO Flow: 3 Previously Treated Lesion: No Lesion Complexity: High/C Lesion Length (mm): 30 Thrombus Present: Yes Bifurcation Lesion: Yes Guidewire Across Lesion: Stenosis Post-Procedure (%): 0 Post-Procedure GERARDO Flow: 3 Devices(s) Deployed: Yes Yes Intraprocedure Events Significant Disection: No Perforation: No Cardiac Cath Procedure Full Procedure Date May 31, 2019 Pre-Procedure Diagnosis Pre-Procedure Diagnosis: Acute Coronary Syndrome AUC Score AUC Score: 9 Post-Procedure Diagnosis Post-Procedure Diagnosis: Severe CAD and Successful PCI Procedure(s) Performed Procedure(s) Performed: Coronary Angiography, PTCA, Drug Eluting Stent, IVUS and Defibrillation Plasterer Rough Trevin Fink MD Fancy Stitcher(s) Margarita Estimated Blood Loss Estimated Blood Loss: 20 Medication(s) Medication(s): Fentanyl, Heparin, Integrilin, Lidocaine 1%, Nicardipine, Nitroglycerin and Versed Medication(s): Amiodarone Lopressor Integrilin Summary of Findings Indication: Transient anterior ST elevations/Heart Alert Access: 6 Fr right radial artery Catheters: EBU 3.5 guide, diagnostic JL 3.5, JR4 Findings: LM -luminal irregularity LAD -large caliber, proximal luminal irregularities, diffuse moderate earlymid disease with thrombotic 80% prior to takeoff of second diagonal. Distal luminal regularities as well from apex. Large second diagonal with 80% ostial stenosis and distal thrombus with acute 100% occlusion. Circumflex -medium caliber, proximal to mid luminal irregularities. Medium caliber first, second OM's without significant disease RCA -large caliber, dominant, no significant disease -- PCI -- Antithrombotic therapy: Heparin, Integrilin, ticagrelor Procedure: Left main cannulated with EBU 3.5 guide BMW wire passed across lesion into distal LAD Pro-water placed into second diagonal Earlymid LAD lesion dilated with 2.5 balloon Started on Integrilin for heavy thrombotic lesion IVUS used to assess extent of disease LAD, noted to have moderate to severe atherosclerotic plaque extending from lateproximal segment to across takeoff of second diagonal. Minimal disease in diagonal except just at ostium. LAD stented with 3.5 x 33 mm Xience Gia Second diagonal rewired with pilot safety inspector 50 wire Attempted to dilate diagonal ostium with 1.5, 2.0 balloons but unable to pass across stent struts Stent postdilated with 4.5 NC balloon Noted to have severe residual diagonal ostial stenosis with GERARDO II flow and second diagonal rewired with pilot safety inspector 50 wire Ostium of second diagonal dilated with 1.25, 2.0 and 2.5 balloons IC vasodilators administered for spasm Post procedure GERARDO 3 flow, stent well expanded with minimal residual stenosis and no apparent cardiac complications. On final pictures developed V. fib requiring defibrillation x1 with ROSC and initial atrial flutter. Started on amiodarone and given IV Lopressor Post procedure chest pain-free, GERARDO-3 flow throughout the left system. Arterial Closure: TR band Summary: 1. 80% mid LAD stenosis involving bifurcation of large second diagonal with heavy thrombus burden complicated by distal emboli 2. Minimal non-culprit vessel coronary artery disease 3. Ventricular fibrillation requiring defibrillation x1 4. Successful PCI of proximal to mid LAD across takeoff of second diagonal with single drug-eluting stent (3.5 x 33 mm Xience Gia; postdilated proximally with 4.5 NC). -PTCA of second diagonal ostium across stent struts with 2.5 balloon Recommendations: Admit to ICU for continued monitoring Continue Integrilin for 3 hours Loaded with ticagrelor 180 mg in oil laboratory analyst Continue amiodarone infusion overnight and start p.o. beta-wali Continue dual-antiplatelet therapy for at least 1 year. Trend troponins until peak, Check Echo Restart home MELVIN, add high intensity statin Consult cardiac Rehab Hemodynamics Rest Ao:: 121/72/112 Final Ao: 117/79/103 LV: -- Recommendations Recommendations: PCI without planned CABG Specimens Specimens: None Radiation Exposure (mGy) 6320 Contrast (mls) 190 Fluids (cc crystalloids) Fluids (cc crystalloids): 500 Drains Drains: None Anesthesia Moderate Procedural Complication(s) None Disposition ICU I attest to the content of the Intraoperative Record and any orders documented therein. Any exceptions are noted below. [facility] Card Cath Procedure Codes Cardiac Catheterization Procedure 1: Cardiovascular Cath Procedures: 23887 Coronaries Therapeutic Services & Ancillary Proc Procedure 1: Cardiovascular Tx and Anc Procedures: 48012 IV Ultrasound (Coronary or Graft) Procedure 2: Cardiovascular Tx and Anc Procedures: 14120 Cardioversion Moderate Sedation Procedure 1: Sedation/Anesthesia: 89379 Mod Sedation by the same physician;Init15 Min Child Age 5 & Up Procedure 2: Sedation/Anesthesia: 56800 Mod Sedation by the same physician; Ea [id number] Minutes Angioplasty Procedure 1: Cardiovascular Angioplasty Procedures: 24945 PTCA; ea addl branch of a major cor art RC LC LD Stenting Procedure 1: Cardiovascular Stent Procedures: 53208 Perc transluminal revascularization of acute sub/total occl, aMI PG Care Time/CCT Total # of Minutes Spent Total Time Spent with Patient: Total time spent is greater than 50% in coordination of care (as documented) at patient's floor/unit and/or counseling patient:
[2019-05-31] MEDS ORDERED: PHARMACY GLYCEMIC MGMT CONSULT PRN (22:15)
--- NOTE | 2019-05-31 22:28 | Pharmacy Report ---
Glycemic Control Consultation - Date of Service May 31, 2019 - Scope Scope: Glycemic Pharmacist consulted for glycemic control and to write orders per [facility] inpatient glycemic control protocol - Objective Weight: 138 kg Accuchecks BSG (last 24hrs): 05/31/19 05/31/19 05/31/19 18:39 18:43 22:12 Glucose 127 H POC Glucose 136 H POC Glucose (other) 128 H Laboratory Data (last 24hrs): 05/31/19 18:39 Potassium 4.7 D Carbon Dioxide 27 Anion Gap 8.0 Creatinine 1.65 H D Est Cr Clr Drug Dosing 79.1 HbA1c: 5.7% 03/2019 - Recent Pertinent Medications Outpatient Anti-diabetic Regimen: * metformin Risk Factors for Insulin Resistance: * Steroids: received methylprednisolone * Recent Surgery: POD #0 s/p cardiac cath * Diet - Assessment & Plan Assessment & Plan: ASSESSMENT: * 49yo ?T2DM? male s/p cardiac cath * Pt is maintained on metformin as an outpatient - possibly for pre-diabetes vs weight loss since A1c is normal. Did not discuss with patient tonight- can clarify in the morning. * Will not re-order A1c secondary to recent steroid use (may artificially inflate A1c) * Will hold oral agents for admission and utilize SQ basal bolus insulin regimen which is the recommended regimen for inpatient glycemic control. * Will initiate weight based insulin dosing for insulin barby patient and titrate based on BSG trends. * basal insulin not needed until BSG >140; initiate at BSG >180 PLAN FOR INPATIENT GLYCEMIC CONTROL: * Holding outpatient oral diabetes medications * Basal insulin * initiate 0.2 units/kg (adj bw for BMI >40) when BSg >180 * Bolus insulin * NovoLog per scale ACHS or Q6hrs while NPO * Goal Range: Low 140 mg/dL - High 180 mg/dL * Correction Factor: 35 mg/dL/unit * Nutritional / Prandial insulin per carb ratio of 1 unit per 15 grams CHO consumed * Please note that the plan above was derived based on current level of insulin resistance and hospital stress. These recommendations are appropriate for inpatient admission only. Plan of care upon discharge will need to be reassessed to avoid potential outpatient hypo/hyperglycemia. Thank you.
--- NOTE | 2019-05-31 23:38 | Emergency Department Note ---
Entered by Maci Klein acting as a scribe for History of Present Illness General Chief complaint: Heart Alert Stated complaint: HEART ALERT Time Seen by Provider: 05/31/19 18:26 History of Present Illness Provider complaint: chest pain Onset (ago): hour(s) (1.5) Location: chest Pain Consistency: + other (episode) Maximum Pain Intensity: 10 Current Pain Intensity: 7 Associated symptoms: + diaphoresis, + nausea/vomiting and + other (laying down when pain started, had a catheterization approximately 10 years ago which was relatively normal) Treatments prior to arrival: aspirin and other (Nitroglycerin, Zofran) The patient is a 49 year old male who presents to the ED with complaints of an episode of chest pain that started 1.5 hours ago. The patient states that he was laying down when the pain started so he took a Nitroglycerin. The patient states that he also felt diaphoretic and started vomiting at this time as well. The patient notes that his pain was a 10/10 pain initially, but has gone down to a 7/10 now. Per EMS, the patient was given Zofran and Aspirin en route. The patient states that he had a catheterization approximately 10 years ago which was relatively normal. Home Medications Home Medications Medication Instructions Recorded Confirmed Type albuterol sulfate [ProAir HFA] 2 puff INHALATION QID 10/05/18 05/31/19 History amlodipine 10 mg PO DAILY 10/05/18 05/31/19 History aspirin [Aspir-81] 81 mg PO DAILY 10/05/18 05/31/19 History atorvastatin 20 mg PO DAILY 10/05/18 05/31/19 History celecoxib 200 mg PO BID 10/05/18 05/31/19 History cholecalciferol (vitamin D3) 1,000 unit PO DAILY 10/05/18 05/31/19 History [Vitamin D3] fluticasone propionate [Flonase 2 spray INTRANASAL DAILY 10/05/18 05/31/19 History Allergy Relief] gabapentin 600 mg PO TID 10/05/18 05/31/19 History hydrochlorothiazide 25 mg PO DAILY 10/05/18 05/31/19 History lisinopril 40 mg PO DAILY 10/05/18 05/31/19 History magnesium oxide 400 mg PO DAILY 10/05/18 05/31/19 History metformin 500 mg PO BID 10/05/18 05/31/19 History montelukast 10 mg PO PM 10/05/18 05/31/19 History nitroglycerin 1 dose SUBLINGUAL UD PRN 10/05/18 05/31/19 History tramadol 50 mg PO Q6H PRN 10/05/18 05/31/19 History escitalopram oxalate 10 mg tablet 10 mg PO DAILY 30 Days #30 tab 05/28/19 05/31/19 Rx dimethyl fumarate [Tecfidera] 240 mg PO BID 05/31/19 05/31/19 History prednisone See Rx Instructions .ROUTE .COMPLEX 05/31/19 05/31/19 History Allergies Allergy/AdvReac Type Severity Reaction Status Date / Time No Known Allergies Allergy NKA Verified 10/05/18 10:50 Past Med/Surg History Medical History Asthma, mild intermittent (Chronic) Coronary artery disease (Chronic) "minimal disease per cath [facility] 12/06/08" 05/31/2019-STEMI s/p SAULO to LAD and PTCA to first diagonal Depression (Chronic) DM type 2 (diabetes mellitus, type 2) (Chronic) Dyslipidemia (Chronic) HTN (hypertension) (Chronic) Multiple sclerosis (Chronic) Obesity (BMI 30-39.9) (Chronic) Osteoarthritis (Chronic) Surgical History H/O arthroscopic knee surgery (Chronic) S/P cardiac cath (Chronic) "2008- minimal luminal irregularities LAD without obstructive disease" Family History Mother Hypertension Social History Preferred Language: Swedish Communication Ability: Effective Visual Impairment: No Limitations Hearing Ability: Normal Spark Plug Tester Required: No Beliefs That Will Affect Care: None Current Living Situation: Significant Other Current Living Situation Comment: lives with girlfriend, in process of getting Other Information That Helps Us Care for You: No Feels Safe at Home: Yes Safety Concerns: Feels Safe At This Time Smoking Status: Never smoker Hx Alcohol Use: No Hx Substance Use: No Review of Systems See HPI for pertinent positives & negatives. and A total of 10 systems reviewed and were otherwise negative Physical Exam Vital Signs Vital Signs - 24 hr 05/31/19 18:28 05/31/19 18:47 05/31/19 18:48 Temperature 36.5 C Temperature Source Oral Pulse Rate 65 Pulse Rate [Apical] 69 Respiratory Rate 20 26 H Blood Pressure 126/77 Blood Pressure [Right Arm] 135/77 Blood Pressure Mean 93 Blood Pressure Mean [Right Arm] 96 Pulse Oximetry 96 94 94 Oxygen Delivery Method Room Air Room Air Room Air Sepsis Recent Fever Within 48 Hours No Sepsis New/Unexplained Change in Mental Status No Sepsis Action Taken by Nursing No Action Required 05/31/19 20:44 Temperature Temperature Source Pulse Rate 128 H Pulse Rate [Apical] Respiratory Rate Blood Pressure 151/95 H Blood Pressure [Right Arm] Blood Pressure Mean Blood Pressure Mean [Right Arm] Pulse Oximetry Oxygen Delivery Method Sepsis Recent Fever Within 48 Hours Sepsis New/Unexplained Change in Mental Status Sepsis Action Taken by Nursing GENERAL: Awake, alert, uncomfortable-appearing, in no distress, BMI 40.2 HENT: Normocephalic, atraumatic. Oropharynx with dry mucous membranes and otherwise unremarkable. EYES: Normal conjunctiva. Sclera non-icteric. NECK: Supple. No nuchal rigidity. FROM. No JVD. RESPIRATORY: Clear to auscultation bilaterally. CARDIAC: Regular rate, normal rhythm. Extremities warm and well perfused. Pulses equal. ABDOMEN: Soft, non-distended. No tenderness to palpation. No rebound or guarding. No masses. RECTAL: Deferred. MUSCULOSKELETAL: Chest examination reveals no tenderness. The back is symmetrical on inspection without obvious abnormality. There is no CVA tendernes s to palpation. No joint edema. LOWER EXTREMITIES: Calves are equal size bilaterally and non-tender. No edema. No discoloration. NEURO: Normal sensorium. No sensory or motor deficits noted. SKIN: No rash or jaundice noted. Course Course 182: Past medical records reviewed. The patient was evaluated in room A01. A co mplete history and physical exam was performed. 183: Dr. Fink- Cardiology is evaluating the patient in the ED now. 1848: I discussed the patient's case with Mira Naidu PA-C. She will evaluate the patient for admission after the cath. Consultations Consultation #1: I discussed the patient's case with KYUNG Figueroa. She will evaluate the patient for admission after the cath. Time: 18:48 Administered Medications Amiodarone HCl/Dextrose (Nexterone / D5w) 360 mg in 200 mls @ 16.667 mls/hr IV .Q12H RODRIGUEZ Stop: 07/01/19 02:29 Last Admin: 06/01/19 02:15 Dose: 0.5 mg/min, 16.7 mls/hr Documented by: [id number] Cosigned by: [id number] Metoprolol Tartrate (Lopressor) 25 mg PO BID RODRIGUEZ Stop: 06/30/19 20:59 Last Admin: 05/31/19 21:59 Dose: 25 mg Documented by: [id number] Discontinued Medications Amiodarone HCl/Dextrose (Nexterone / D5w (Ship Surveyor Use Only)) Confirm Administered Dose 360 mg .ROUTE .STK-MED ONE Stop: 05/31/19 20:31 Last Admin: 05/31/19 20:45 Dose: 360 mg Documented by: [id number] Amiodarone HCl (Cordarone (Ship Surveyor Use Only)) Confirm Administered Dose 150 mg .ROUTE .STK-MED ONE Stop: 05/31/19 20:21 Last Admin: 05/31/19 20:44 Dose: 150 mg Documented by: [id number] Eptifibatide (Integrilin (Ship Surveyor Use Only)) Confirm Administered Dose 40 mg IV .STK-MED ONE Stop: 05/31/19 19:07 Last Admin: 05/31/19 20:44 Dose: 40 mg Documented by: [id number] Eptifibatide (Integrilin (Ship Surveyor Use Only)) Confirm Administered Dose 75 mg .ROUTE .STK-MED ONE Stop: 05/31/19 19:54 Last Admin: 05/31/19 20:44 Dose: 75 mg Documented by: [id number] Fentanyl Citrate (Fentanyl Citrate) 50 mcg IV NOW STA Stop: 05/31/19 18:32 Last Admin: 05/31/19 21:14 Dose: Not Given Documented by: [id number] Fentanyl Citrate (Fentanyl Citrate) Confirm Administered Dose 100 mcg .ROUTE .STK-MED ONE Stop: 05/31/19 18:36 Last Admin: 05/31/19 20:43 Dose: 100 mcg Documented by: [id number] Heparin Sodium (Porcine) (Heparin Iv Bolus) 5,000 units IV ONE ONE Stop: 05/31/19 18:31 Last Admin: 05/31/19 18:39 Dose: 5,000 units Documented by: [id number] Cosigned by: [id number] Heparin Sodium (Porcine) (Heparin Iv Bolus (Ship Surveyor Use Only)) Confirm Administered Dose 10,000 units .ROUTE .STK-MED ONE Stop: 05/31/19 18:36 Last Admin: 05/31/19 20:43 Dose: 8,000 units Documented by: [id number] Heparin Sodium/Sodium Chloride (Heparin/Nss 1000 Unit/500ml Flush Bag) Confirm Administered Dose 7,000 units IV .STK-MED ONE Stop: 05/31/19 18:36 Last Admin: 05/31/19 20:43 Dose: 7,000 units Documented by: [id number] Sodium Chloride (Nss) 500 mls @ 999 mls/hr IV .Q31M RODRIGUEZ Stop: 05/31/19 19:00 Last Infusion: 05/31/19 21:00 Dose: 0 mls/hr Documented by: [id number] Admin: 05/31/19 18:46 Dose: 999 mls/hr Documented by: [id number] Sodium Chloride (Nss 1000ml) 1,000 mls @ 100 mls/hr IV .Q10H [facility] Stop: 06/01/19 01:44 Last Infusion: 06/01/19 00:27 Dose: 0 mls/hr Documented by: [id number] Admin: 05/31/19 21:15 Dose: 100 mls/hr Documented by: [id number] Eptifibatide (Integrilin) 75 mg in 100 mls @ 22.112 mls/hr IV .Q4H32M RODRIGUEZ; Protocol Stop: 05/31/19 23:00 Last Infusion: 05/31/19 23:50 Dose: 0 mcg/kg/min, 0 mls/hr Documented by: [id number] Cosigned by: [id number] Admin: 05/31/19 21:15 Dose: 2 mcg/kg/min, 22.1 mls/hr Documented by: [id number] Cosigned by: [id number] Metoprolol Tartrate (Lopressor) Confirm Administered Dose 5 mg IV .STK-MED ONE Stop: 05/31/19 20:29 Last Increment: 05/31/19 20:44 Dose: 2.5 mg Documented by: [id number] Midazolam HCl (Versed) Confirm Administered Dose 2 mg .ROUTE .STK-MED ONE Stop: 05/31/19 18:36 Last Admin: 05/31/19 20:43 Dose: 2 mg Documented by: [id number] Miscellaneous (Stop Order) 1 ea N/A ONE ONE Stop: 05/31/19 23:01 Last Admin: 05/31/19 23:50 Dose: 1 ea Documented by: [id number] Nicardipine HCl (Cardene) Confirm Administered Dose 25 mg .ROUTE .STK-MED ONE Stop: 05/31/19 18:36 Last Admin: 05/31/19 20:42 Dose: 25 mg Documented by: [id number] Nitroglycerin/Dextrose (Nitroglycerin/D5w 100 Mcg/Ml 20ml Syringe) Confirm Administered Dose 2,000 mcg .ROUTE .STK-MED ONE Stop: 05/31/19 18:37 Last Admin: 05/31/19 20:44 Dose: 2,000 mcg Documented by: [id number] Ticagrelor (Brilinta) 180 mg PO ONE ONE Stop: 05/31/19 18:31 Last Admin: 05/31/19 18:46 Dose: Not Given Documented by: [id number] Ticagrelor (Brilinta) Confirm Administered Dose 180 mg PO .STK-MED ONE Stop: 05/31/19 20:34 Last Admin: 05/31/19 20:45 Dose: 180 mg Documented by: [id number] Critical Care Time Critical Care Time: Yes Total Critical Care Time: 31 I have personally spent greater than 31 minutes of critical care time in the direct management of this patient. This includes bedside care, interpretation of diagnostic studies, and testing, discussion with consultants, patient, and family members, and other required patient management activities. This 31 minutes is in excess of all separately billable procedures. Medical Decision Making Differential Diagnosis Differential diagnosis: Etiologies such as shingles, musculoskeletal pain, pericarditis, myocarditis, cardiac ischemia, pericardial tamponade, pneumonia, pneumothorax, pleural effusion, hemothorax, pleurisy, aortic pathology, pulmonary embolism, intra- abdominal process, as well as others were considered. Medical Records Attestation: I reviewed the patient's medical records. Home Medications Current Medication List: was personally reviewed by me Laboratory Data Attestation: I reviewed the patient's lab results. Result diagrams: 06/01/19 02:37 06/01/19 02:37 Lab Results 05/31/19 05/31/19 05/31/19 Range/Units 18:39 18:39 18:39 WBC 11.40 H (4.8-10.8) K/uL RBC 5.54 (4.7-6.1) M/uL Hgb 15.3 (14.0-18.0) g/dL POC Hgb (14.0-18.0) g/dl Hct 46.3 (42-52) % POC Hct (42-52) % MCV 83.6 (80-100) fL MCH 27.6 (25-34) pg MCHC 33.0 (32-36) g/dL RDW Std Deviation 45.3 (36.4-46.3) fL RDW Coeff of Shakira 14.7 H (11.5-14.5) % Plt Count 178 (130-400) K/uL MPV 11.8 H (7.4-10.4) fL Immature Gran % (Auto) 0.2 % Neut % (Auto) 90.1 % Lymph % (Auto) 6.9 % Motley % (Auto) 2.8 % Eos % (Auto) 0.0 % Baso % (Auto) 0.0 % Immature Gran # (Auto) 0.02 (0.00-0.02) K/uL Neut # (Auto) 10.27 H (1.4-6.5) K/uL Lymph # (Auto) 0.79 L (1.2-3.4) K/uL Motley # (Auto) 0.32 (0.11-0.59) K/uL Eos # (Auto) 0.00 (0-0.5) K/uL Baso # (Auto) 0.00 (0-0.2) K/uL PT 10.9 (9.0-12.0) Seconds INR 1.1 (0.9-1.1) APTT < 20.0 L (21.0-31.0) Seconds PTT Ratio 0.7 Activ Coag Time Kaolin (94-140) SECONDS POC Sodium (135-144) mEq/L Sodium (136-145) mmol/L POC Potassium (3.3-5.0) mEq/L Potassium (3.5-5.1) mmol/L POC Chloride (101-112) mEq/L Chloride (98-107) mmol/L Carbon Dioxide (21-32) mmol/L POC Total CO2 (24-31) mEq/l Anion Gap (3-11) POC Anion Gap (16-25) mmol/L POC BUN (7-18) mg/dl BUN (7-18) mg/dl Creatinine (0.6-1.4) mg/dl POC Creatinine (0.6-1.3) mg/dl Est Cr Clr Drug Dosing ml/min Est GFR ( Amer) Est GFR (Non-Af Amer) BUN/Creatinine Ratio (10-20) Glucose (70-99) mg/dl POC Glucose (other) (70-99) mg/dl Calcium (8.5-10.1) mg/dl POC Ioniz Calcium Santa (1.12-1.32) mmol/l Magnesium (1.8-2.4) mg/dl Total Bilirubin (0.2-1) mg/dl AST (15-37) U/L ALT (12-78) U/L Alkaline Phosphatase (45-117) U/L Total Creatine Kinase (39-308) U/L CK-MB (CK-2) (0.5-3.6) ng/ml CK/CKMB % Calc (0-3.0) POC Troponin I (0-0.045) ng/ml Troponin I (0-0.045) ng/ml NT-Pro-B Natriuret Pep (0-450) pg/ml Total Protein (6.4-8.2) gm/dl Albumin (3.4-5.0) gm/dl Globulin (2.5-4.0) gm/dl Albumin/Globulin Ratio (0.9-2) Lipase (73-393) U/L TSH (0.300-4.500) uIu/ml Blood Type B Positive Antibody Screen NEGATIVE 05/31/19 05/31/19 05/31/19 Range/Units 18:39 18:41 18:43 WBC (4.8-10.8) K/uL RBC (4.7-6.1) M/uL Hgb (14.0-18.0) g/dL POC Hgb 16.3 (14.0-18.0) g/dl Hct (42-52) % POC Hct 48 (42-52) % MCV (80-100) fL MCH (25-34) pg MCHC (32-36) g/dL RDW Std Deviation (36.4-46.3) fL RDW Coeff of Shakira (11.5-14.5) % Plt Count (130-400) K/uL MPV (7.4-10.4) fL Immature Gran % (Auto) % Neut % (Auto) % Lymph % (Auto) % Motley % (Auto) % Eos % (Auto) % Baso % (Auto) % Immature Gran # (Auto) (0.00-0.02) K/uL Neut # (Auto) (1.4-6.5) K/uL Lymph # (Auto) (1.2-3.4) K/uL Motley # (Auto) (0.11-0.59) K/uL Eos # (Auto) (0-0.5) K/uL Baso # (Auto) (0-0.2) K/uL PT (9.0-12.0) Seconds INR (0.9-1.1) APTT (21.0-31.0) Seconds PTT Ratio Activ Coag Time Kaolin (94-140) SECONDS POC Sodium 141 (135-144) mEq/L Sodium 142 (136-145) mmol/L POC Potassium 4.4 (3.3-5.0) mEq/L Potassium 4.7 D (3.5-5.1) mmol/L POC Chloride 104 (101-112) mEq/L Chloride 107 (98-107) mmol/L Carbon Dioxide 27 (21-32) mmol/L POC Total CO2 28 (24-31) mEq/l Anion Gap 8.0 (3-11) POC Anion Gap 15.0 L (16-25) mmol/L POC BUN 22 H (7-18) mg/dl BUN 21 H (7-18) mg/dl Creatinine 1.65 H D (0.6-1.4) mg/dl POC Creatinine 1.4 H (0.6-1.3) mg/dl Est Cr Clr Drug Dosing 79.1 ml/min Est GFR ( Amer) 55.7 Est GFR (Non-Af Amer) 48.0 BUN/Creatinine Ratio 12.5 (10-20) Glucose 127 H (70-99) mg/dl POC Glucose (other) 128 H (70-99) mg/dl Calcium 9.4 (8.5-10.1) mg/dl POC Ioniz Calcium Santa 1.21 (1.12-1.32) mmol/l Magnesium 2.1 (1.8-2.4) mg/dl Total Bilirubin 0.6 (0.2-1) mg/dl AST 20 (15-37) U/L ALT 28 (12-78) U/L Alkaline Phosphatase 68 (45-117) U/L Total Creatine Kinase 448 H (39-308) U/L CK-MB (CK-2) 3.9 H (0.5-3.6) ng/ml CK/CKMB % Calc 0.9 (0-3.0) POC Troponin I < 0.03 (0-0.045) ng/ml Troponin I < 0.015 (0-0.045) ng/ml NT-Pro-B Natriuret Pep 63 (0-450) pg/ml Total Protein 7.9 (6.4-8.2) gm/dl Albumin 4.0 (3.4-5.0) gm/dl Globulin 3.9 (2.5-4.0) gm/dl Albumin/Globulin Ratio 1.0 (0.9-2) Lipase 647 H (73-393) U/L TSH 0.705 (0.300-4.500) uIu/ml Blood Type Antibody Screen 05/31/19 05/31/19 Range/Units 19:29 20:00 WBC (4.8-10.8) K/uL RBC (4.7-6.1) M/uL Hgb (14.0-18.0) g/dL POC Hgb (14.0-18.0) g/dl Hct (42-52) % POC Hct (42-52) % MCV (80-100) fL MCH (25-34) pg MCHC (32-36) g/dL RDW Std Deviation (36.4-46.3) fL RDW Coeff of Shakira (11.5-14.5) % Plt Count (130-400) K/uL MPV (7.4-10.4) fL Immature Gran % (Auto) % Neut % (Auto) % Lymph % (Auto) % Motley % (Auto) % Eos % (Auto) % Baso % (Auto) % Immature Gran # (Auto) (0.00-0.02) K/uL Neut # (Auto) (1.4-6.5) K/uL Lymph # (Auto) (1.2-3.4) K/uL Motley # (Auto) (0.11-0.59) K/uL Eos # (Auto) (0-0.5) K/uL Baso # (Auto) (0-0.2) K/uL PT (9.0-12.0) Seconds INR (0.9-1.1) APTT (21.0-31.0) Seconds PTT Ratio Activ Coag Time Kaolin 186 H 230 H (94-140) SECONDS POC Sodium (135-144) mEq/L Sodium (136-145) mmol/L POC Potassium (3.3-5.0) mEq/L Potassium (3.5-5.1) mmol/L POC Chloride (101-112) mEq/L Chloride (98-107) mmol/L Carbon Dioxide (21-32) mmol/L POC Total CO2 (24-31) mEq/l Anion Gap (3-11) POC Anion Gap (16-25) mmol/L POC BUN (7-18) mg/dl BUN (7-18) mg/dl Creatinine (0.6-1.4) mg/dl POC Creatinine (0.6-1.3) mg/dl Est Cr Clr Drug Dosing ml/min Est GFR ( Amer) Est GFR (Non-Af Amer) BUN/Creatinine Ratio (10-20) Glucose (70-99) mg/dl POC Glucose (other) (70-99) mg/dl Calcium (8.5-10.1) mg/dl POC Ioniz Calcium Santa (1.12-1.32) mmol/l Magnesium (1.8-2.4) mg/dl Total Bilirubin (0.2-1) mg/dl AST (15-37) U/L ALT (12-78) U/L Alkaline Phosphatase (45-117) U/L Total Creatine Kinase (39-308) U/L CK-MB (CK-2) (0.5-3.6) ng/ml CK/CKMB % Calc (0-3.0) POC Troponin I (0-0.045) ng/ml Troponin I (0-0.045) ng/ml NT-Pro-B Natriuret Pep (0-450) pg/ml Total Protein (6.4-8.2) gm/dl Albumin (3.4-5.0) gm/dl Globulin (2.5-4.0) gm/dl Albumin/Globulin Ratio (0.9-2) Lipase (73-393) U/L TSH (0.300-4.500) uIu/ml Blood Type Antibody Screen Imaging Data Radiologist's Impression: Radiology results as stated below per my review and the radiologist's interpretation: XR chest 1V portable HISTORY: 49 years-old Male Chest pain acute atypical chest pain COMPARISON: Chest radiograph 05/30/2019 TECHNIQUE: Portable AP view of the chest FINDINGS: Cardiac silhouette is enlarged. Pulmonary vascular congestion is suggested. There is no pneumothorax, pleural effusion or focal airspace consolidation. Mild degenerative changes of the shoulders and spine. IMPRESSION: Cardiomegaly with suggestion of mild pulmonary vascular congestion. ACT 112: Negative or not required by law. The above report was generated using voice recognition software. It may contain grammatical, syntax or spelling errors. Electronically signed by: Home Tyler M.D. 05/31/2019 7:00 PM ECG Data Attestation: I personally reviewed and interpreted this ECG as follows: Indication: + chest pain Rate (beats per minute): 67 Rhythm: + normal sinus ECG [place]: + Normal ECG ST segments: no ST depression and no ST elevation ECG Findings: + Other (T wave flattening in lead 3, QTC 405, QRS 90); no PACs and no PVCs Blood Pressure Blood Pressure Findings: Elevated blood pressure Blood Pressure Disposition: further management by hospitalist [facility] Narrative The patient is a pleasant 49-year-old gentleman with a past medical history of multiple sclerosis, hypertension, hyperlipidemia, type 2 diabetes who presents emergency department with acute onset chest pain that happened at 1700 today with EMS twelve-lead demonstrating acute ST elevation [place] with heart alert activated in the field per HPI. On arrival the patient is uncomfortable but no acute distress, afebrile stable vital signs. Patient reports residual 5/10 substernal chest pain but significant improved from when his symptoms initially began. The patient treated himself with nitroglycerin without any improvement. He was briefly hypotensive in the field but became normotensive without intervention. Was given aspirin by EMS prior to arrival. Serial 12 leads from the field do show subsequent resolution of ST elevation. However certainly given his symptoms and initial twelve-lead patient's presentation is consistent with STEMI. EKG on arrival without overt acute ischemia. Chest x-ray with cardiomegaly and mild venous congestion but otherwise no acute cardiopulmonary process. No widening of the mediastinum. Dr. Fink, interventional cardiology arrived to the bedside to evaluate the patient and explain upcoming catheterizat ion. Patient was ordered for heparin bolus and ticagrelor. Lab work subsequently resulting with WBC 11.4, nonspecific. H/H and platelets within normal limits. Chemistry without acidosis. However today demonstrates mild renal insufficiency with creatinine of 1.6. Initial troponin negative/undet ectable. Case was additionally discussed with Evangelista Hart, who evaluate the patient for admission following catheterization. Impression & Plan ST elevation [place] (STEMI), History of hypertension, History of hyperlipidemia, R enal insufficiency Discharge Plan Visit Data *Final* Discharge Date/Time: 05/31/19 18:48 Chief Complaint: Heart Alert Stated Complaint: HEART ALERT ED Provider: Almas Whalen Discharge Problem: ST elevation [place] (STEMI), History of hypertension, History of hyperlipidemia, Renal insufficiency Patient Disposition: Admitted As Inpatient Discharge Instructions Interventions: ED Discharge Assessment Last Done: 05/31/19 18:48 Discharge Problem: ST elevation [place] (STEMI) Qualifiers: Involved coronary artery: unspecified coronary artery Qualified Code(s): I21.3 - ST elevation (STEMI) myocardial infarction of unspecified site The scribe's documentation has been prepared under my direction and personally reviewed by me in its entirety. I confirm that the note above accurately reflects all work, treatment, procedures, and medical decision making performed by me.
[2019-06-01] MEDS: AMIODARONE / D5W 360 MG/200 ML BAG IV SCH ×2 (02:15→12:40)
[2019-06-01 02:46] LABS: Hematocrit (blood only) 43.8 % (42-52); Hemoglobin 14.5 g/dL (14.0-18.0); Immature Granulocytes # (auto) 0.06 K/uL (0.00-0.02); Immature Granulocytes % (auto) 0.4 %; Lymphocytes # (auto) 0.82 K/uL (1.2-3.4); Lymphocytes % (auto) 5.5 %; Mean Corpuscular Hemoglobin 27.6 pg (25-34); Mean Corpuscular Hgb Conc 33.1 g/dL (32-36); Mean Corpuscular Volume 83.3 fL (80-100); Mean Platelet Volume 11.9 fL (7.4-10.4); Monocytes # (auto) 0.66 K/uL (0.11-0.59); Monocytes % (auto) 4.5 %; Neutrophils # (auto) 13.26 K/uL (1.4-6.5); Neutrophils % (auto) 89.6 %; Platelet Count 196 K/uL (130-400); RDW Coefficient of Variation 14.8 % (11.5-14.5); RDW Standard Deviation 44.5 fL (36.4-46.3); Red Blood Count 5.26 M/uL (4.7-6.1)
[2019-06-01 03:02] LABS: BUN Creatinine Ratio 16.1 (10-20); Calcium 8.4 mg/dl (8.5-10.1); Creatinine Clr Calc Pharmacy 107.7 ml/min; Est GFR (Non-African American) 69.9; Magnesium 2.1 mg/dl (1.8-2.4); Potassium 4.1 mmol/L (3.5-5.1)
[2019-06-01 03:23] LABS: Phosphorus 2.3 mg/dl (2.5-4.9); Troponin I 1.96 ng/ml (0-0.045)
[2019-06-01 06:07] LABS: Estimated Average Glucose 120 mg/dl; Hemoglobin A1C 5.8 % (4.5-5.6)
[2019-06-01] MEDS: INSULIN ASPART 100 UNITS/ML 3 ML PEN SC SCH ×4 (08:06→20:14)
[2019-06-01] MEDS ORDERED: PERFLUTREN LIPID MICROSPHERE (DEFINITY) IV ONE (08:19)
[2019-06-01] MEDS: METOPROLOL TARTRATE 25 MG TAB PO SCH ×2 (08:46→20:06)
[2019-06-01] MEDS: TICAGRELOR 90 MG TAB PO SCH ×2 (08:46→20:05)
[2019-06-01] MEDS: CYANOCOBALAMIN 500 MCG TABLET (VITAMIN B-12) PO SCH (08:47)
[2019-06-01] MEDS: ASPIRIN 81 MG ECTAB PO SCH (08:48)
[2019-06-01] MEDS: ESCITALOPRAM OXALATE 10 MG TAB PO SCH (08:48)
[2019-06-01] MEDS: ATORVASTATIN 40 MG TAB PO SCH (08:48)
[2019-06-01] MEDS: GABAPENTIN 600 MG TAB PO SCH ×3 (08:48→20:06)
[2019-06-01] MEDS: TECFIDERA PO SCH ×2 (08:50→20:08)
[2019-06-01] MEDS: POT PHOSPHATE MONOBASIC W/ SOD TAB PO SCH ×4 (09:00→20:06)
--- NOTE | 2019-06-01 12:43 | Critical Care Progress Note ---
Date of Service June 01, 2019 Assessment & Plan (1) Coronary artery disease: 1) ST elevation [place] (STEMI): Reason Critically Ill: 49-year-old male admitted for ST elevation [place], status post heart cath with SAULO x1 to LAD Neuro - [facility] ICU: Negative MSdiagnosed MS flare in ED yesterday, given Solu-Medrol and prednisone taper -will continue Tecfidera -Holding prednisone for now following [place] Cardiac - STEMIpatient displayed ST elevation in anterior leads on initial EKG, now resol shira post-cath with SAULO x1 to LAD -Patient received Brilinta -Integrilin discontinued -continue Brilinta, ASA, Lipitor, MTP -Holding prednisone and NSAID -Lipid panel reviewed -Mildly elevated A1c -We will monitor on telemetry -Cardiac rehab consulted -Follow-up cardiology recs V- fibpatient had episode of ventricular fibrillation in [employer] requiring defibrillation -No further events at this time, continue to monitor on telemetry -Continue amiodarone drip Atrial fibrillationpatient has no known history of atrial fibrillation, likely related post cath -TSH within normal limits -Rate currently controlled on amiodarone drip will continue, schedule MTP -Continue to monitor on telemetry -May consider anticoagulation 24 hours from Brilinta bolus if unresolved HTNholding HCTZ and lisinopril for LIDIA -We will hold amlodipine for now per cardiology -Continue MTP Respiratory - Maintaining oxygen saturation on room air History of asthma, PRN albuterol if needed, scheduled p.m. Singulair GI - Heart healthy diabetic diet RENAL/LYTES - AKIinitial creatinine 1.6 with prior baseline of 1.0 -Holding HCTZ, lisinopril, metformin -We will continue IV fluid resuscitation -Monitor with routine BMP - Strict I's and O's ENDO - DM type IIpatient normally on oral metformin, will hold considering LIDIA -hyperglycemic protocol -Diabetic diet -Sliding scale insulin No history of thyroid disease, TSH within normal limit HEME - H&H stable, monitor routine CBCs ID - No indication for infectious process at this time LINES/IV ACCESS - Peripheral IVs DVT PROPHYLAXIS - SCDs, hold anticoagulation following Brilinta infusion per 24 hours I discussed the case with Dr. Shabazz of cardiology, will hold heparin infusion as well as possible elective cardioversion at this time. Patient stable for downgrade out of ICU. Results & Data Vital Signs (Past 12 Hours) Vital Signs Temp Pulse Resp BP Pulse Ox 06/01/19 12:00 59 L 06/01/19 07:00 56 L 06/01/19 06:14 63 19 123/84 99 06/01/19 06:00 61 24 130/72 98 06/01/19 05:02 36.6 C 67 23 139/82 99 06/01/19 04:32 62 19 124/73 97 06/01/19 04:02 70 20 123/75 95 06/01/19 03:33 61 21 122/70 98 06/01/19 03:02 68 25 H 133/75 98 06/01/19 02:33 68 21 118/69 97 06/01/19 02:02 36.5 C 74 20 109/75 97 06/01/19 01:32 61 19 136/71 97 06/01/19 01:29 66 06/01/19 01:02 70 19 122/75 97 06/01/19 00:45 68 18 121/89 98 Coding Level of Care Code 54666 Subseq Hosp Care Lvl 2 Diagnoses Coronary artery disease I25.10
--- NOTE | 2019-06-01 13:47 | Cardiology Progress Note ---
Date of Service June 01, 2019 Assessment & Plan (1) ST elevation AK (STEMI): Status post successful PCI to the LAD with only apical hypokinesis on echocardiogram now. Has been started on dual antiplatelet therapy, tolerating well We will continue with beta-blockade and statin therapy as well. Monitor in ICU for at least 24 hours and then transferred to telemetry for a total of 72 hours of observation (2) Atrial fibrillation: Unexpected given the clinical setting, however, tolerating well. I suspect that he will convert back to normal sinus rhythm with continued IV amiodarone and oral metoprolol. We will hold off IV anticoagulation at this time, and wait least 48 hours before initiation given the high likelihood of cardioversion. The pathophysiology and treatment options for which is been discussed with the patient at great length he states he understands. Given the current clinical context would like to avoid electrical cardioversion if possible. (3) Ventricular fibrillation: Possibly secondary to vessel occlusion during PCI or reperfusion injury. Status post successful defibrillation. We will continue amiodarone IV at this time, however, do not anticipate the need for long-term oral afterwards. His metoprolol will also be continued. Consideration will be given for LifeVest as an outpatient, to be discussed with the patient (4) DAVE (obstructive sleep apnea): Very high likelihood given his body habitus along with mild enlargement of the RV on echocardiogram. We will obtain an overnight nocturnal pulse ox Subjective Patient care to be transferred to the [facility] cardiology team given the fact that he is a [facility] PCP. Patient seen and examined with significant other at bedside. States that he feels well. No recurrences of chest discomfort since PCI and currently resting comfortably. Denies any chest pain, shortness of breath, palpitations, lightheadedness, dizziness or syncope. Remembers some events of the cardiac catheterization but does not remember defibrillation. Telemetry reviewed atrial fibrillation rate controlled in the 60s no further ventricular arrhythmias. Review of Systems Review of Systems: All systems reviewed & are unremarkable except as noted in HPI & below Physical Exam Physical Exam: General: Awake, alert and oriented x 3. No acute distress. HEENT: Normocephalic, atraumatic. Pupils equal, round and reactive to light and accommodation. Extraocular muscles are intact. Anicteric sclera. Moist mucous membranes. Neck: No JVD. No bruit. Cardiovascular: irregularly irregular, unable to appreciate murmur, rub or gallop. Pulmonary: Clear to auscultation bilaterally. No rales, rhonchi, or wheezing. Abdomen: Bowel sounds x 4, soft. No rebound, guarding or tenderness. No organomegaly. Extremities: No clubbing, cyanosis or edema. +2 pedal pulses bilaterally. Skin: Warm and dry. Results & Data Vital Signs (Past 12 Hours) Vital Signs Temp Pulse Resp BP Pulse Ox 06/01/19 12:00 59 L 06/01/19 07:00 56 L 06/01/19 06:14 63 19 123/84 99 06/01/19 06:00 61 24 130/72 98 06/01/19 05:02 36.6 C 67 23 139/82 99 06/01/19 04:32 62 19 124/73 97 06/01/19 04:02 70 20 123/75 95 06/01/19 03:33 61 21 122/70 98 06/01/19 03:02 68 25 H 133/75 98 06/01/19 02:33 68 21 118/69 97 06/01/19 02:02 36.5 C 74 20 109/75 97 Laboratory Results Laboratory Results - last 24 hr 05/31/19 05/31/19 05/31/19 18:39 18:39 18:39 WBC 11.40 H RBC 5.54 Hgb 15.3 POC Hgb Hct 46.3 POC Hct MCV 83.6 MCH 27.6 MCHC 33.0 RDW Std Deviation 45.3 RDW Coeff of Shakira 14.7 H Plt Count 178 MPV 11.8 H Immature Gran % (Auto) 0.2 Neut % (Auto) 90.1 Lymph % (Auto) 6.9 [place] % (Auto) 2.8 Eos % (Auto) 0.0 Baso % (Auto) 0.0 Immature Gran # (Auto) 0.02 Neut # (Auto) 10.27 H Lymph # (Auto) 0.79 L [place] # (Auto) 0.32 Eos # (Auto) 0.00 Baso # (Auto) 0.00 PT 10.9 INR 1.1 APTT < 20.0 L PTT Ratio 0.7 Activ Coag Time Kaolin POC Sodium Sodium POC Potassium Potassium POC Chloride Chloride Carbon Dioxide POC Total CO2 Anion Gap POC Anion Gap POC BUN BUN Creatinine POC Creatinine Est Cr Clr Drug Dosing Est GFR ( Amer) Est GFR (Non-Af Amer) BUN/Creatinine Ratio Glucose POC Glucose POC Glucose (other) Estimat Average Glucose Hemoglobin A1c Calcium POC Ioniz Calcium [place] Phosphorus Magnesium Total Bilirubin AST ALT Alkaline Phosphatase Total Creatine Kinase CK-MB (CK-2) CK/CKMB % Calc POC Troponin I Troponin I NT-Pro-B Natriuret Pep Total Protein Albumin Globulin Albumin/Globulin Ratio Triglycerides Cholesterol LDL Cholesterol, Calc VLDL Cholesterol, Calc HDL Cholesterol Cholesterol/HDL Ratio Lipase TSH Nasal Screen MRSA (PCR) Blood Type B Positive Antibody Screen NEGATIVE 05/31/19 05/31/19 05/31/19 18:39 18:41 18:43 WBC RBC Hgb POC Hgb 16.3 Hct POC Hct 48 MCV MCH MCHC RDW Std Deviation RDW Coeff of Shakira Plt Count MPV Immature Gran % (Auto) Neut % (Auto) Lymph % (Auto) [place] % (Auto) Eos % (Auto) Baso % (Auto) Immature Gran # (Auto) Neut # (Auto) Lymph # (Auto) [place] # (Auto) Eos # (Auto) Baso # (Auto) PT INR APTT PTT Ratio Activ Coag Time Kaolin POC Sodium 141 Sodium 142 POC Potassium 4.4 Potassium 4.7 D POC Chloride 104 Chloride 107 Carbon Dioxide 27 POC Total CO2 28 Anion Gap 8.0 POC Anion Gap 15.0 L POC BUN 22 H BUN 21 H Creatinine 1.65 H D POC Creatinine 1.4 H Est Cr Clr Drug Dosing 79.1 Est GFR ( Amer) 55.7 Est GFR (Non-Af Amer) 48.0 BUN/Creatinine Ratio 12.5 Glucose 127 H POC Glucose POC Glucose (other) 128 H Estimat Average Glucose Hemoglobin A1c Calcium 9.4 POC Ioniz Calcium [place] 1.21 Phosphorus Magnesium 2.1 Total Bilirubin 0.6 AST 20 ALT 28 Alkaline Phosphatase 68 Total Creatine Kinase 448 H CK-MB (CK-2) 3.9 H CK/CKMB % Calc 0.9 POC Troponin I < 0.03 Troponin I < 0.015 NT-Pro-B Natriuret Pep 63 Total Protein 7.9 Albumin 4.0 Globulin 3.9 Albumin/Globulin Ratio 1.0 Triglycerides Cholesterol LDL Cholesterol, Calc VLDL Cholesterol, Calc HDL Cholesterol Cholesterol/HDL Ratio Lipase 647 H TSH 0.705 Nasal Screen MRSA (PCR) Blood Type Antibody Screen 05/31/19 05/31/19 05/31/19 19:29 20:00 21:00 WBC RBC Hgb POC Hgb Hct POC Hct MCV MCH MCHC RDW Std Deviation RDW Coeff of Shakira Plt Count MPV Immature Gran % (Auto) Neut % (Auto) Lymph % (Auto) [place] % (Auto) Eos % (Auto) Baso % (Auto) Immature Gran # (Auto) Neut # (Auto) Lymph # (Auto) [place] # (Auto) Eos # (Auto) Baso # (Auto) PT INR APTT PTT Ratio Activ Coag Time Kaolin 186 H 230 H POC Sodium Sodium POC Potassium Potassium POC Chloride Chloride Carbon Dioxide POC Total CO2 Anion Gap POC Anion Gap POC BUN BUN Creatinine POC Creatinine Est Cr Clr Drug Dosing Est GFR ( Amer) Est GFR (Non-Af Amer) BUN/Creatinine Ratio Glucose POC Glucose POC Glucose (other) Estimat Average Glucose Hemoglobin A1c Calcium POC Ioniz Calcium [place] Phosphorus Magnesium Total Bilirubin AST ALT Alkaline Phosphatase Total Creatine Kinase CK-MB (CK-2) CK/CKMB % Calc POC Troponin I Troponin I NT-Pro-B Natriuret Pep Total Protein Albumin Globulin Albumin/Globulin Ratio Triglycerides Cholesterol LDL Cholesterol, Calc VLDL Cholesterol, Calc HDL Cholesterol Cholesterol/HDL Ratio Lipase TSH Nasal Screen MRSA (PCR) Negative Blood Type Antibody Screen 05/31/19 06/01/19 06/01/19 22:12 02:37 02:37 WBC 14.80 H RBC 5.26 Hgb 14.5 POC Hgb Hct 43.8 POC Hct MCV 83.3 MCH 27.6 MCHC 33.1 RDW Std Deviation 44.5 RDW Coeff of Shakira 14.8 H Plt Count 196 MPV 11.9 H Immature Gran % (Auto) 0.4 Neut % (Auto) 89.6 Lymph % (Auto) 5.5 [place] % (Auto) 4.5 Eos % (Auto) 0.0 Baso % (Auto) 0.0 Immature Gran # (Auto) 0.06 H Neut # (Auto) 13.26 H Lymph # (Auto) 0.82 L [place] # (Auto) 0.66 H Eos # (Auto) 0.00 Baso # (Auto) 0.00 PT INR APTT PTT Ratio Activ Coag Time Kaolin POC Sodium Sodium 137 POC Potassium Potassium 4.1 POC Chloride Chloride 105 Carbon Dioxide 29 POC Total CO2 Anion Gap 3.0 POC Anion Gap POC BUN BUN 19 H Creatinine 1.21 D POC Creatinine Est Cr Clr Drug Dosing 107.7 Est GFR ( Amer) 81.0 Est GFR (Non-Af Amer) 69.9 BUN/Creatinine Ratio 16.1 Glucose 138 H POC Glucose 136 H POC Glucose (other) Estimat Average Glucose Hemoglobin A1c Calcium 8.4 L POC Ioniz Calcium [place] Phosphorus 2.3 L Magnesium 2.1 Total Bilirubin AST ALT Alkaline Phosphatase Total Creatine Kinase CK-MB (CK-2) CK/CKMB % Calc POC Troponin I Troponin I 1.960 H* NT-Pro-B Natriuret Pep Total Protein Albumin Globulin Albumin/Globulin Ratio Triglycerides 85 Cholesterol 186 LDL Cholesterol, Calc 117 VLDL Cholesterol, Calc 17 HDL Cholesterol 52 Cholesterol/HDL Ratio 4 Lipase 174 TSH Nasal Screen MRSA (PCR) Blood Type Antibody Screen 06/01/19 06/01/19 06/01/19 02:37 07:54 08:46 WBC RBC Hgb POC Hgb Hct POC Hct MCV MCH MCHC RDW Std Deviation RDW Coeff of Shakira Plt Count MPV Immature Gran % (Auto) Neut % (Auto) Lymph % (Auto) [place] % (Auto) Eos % (Auto) Baso % (Auto) Immature Gran # (Auto) Neut # (Auto) Lymph # (Auto) [place] # (Auto) Eos # (Auto) Baso # (Auto) PT INR APTT PTT Ratio Activ Coag Time Kaolin POC Sodium Sodium POC Potassium Potassium POC Chloride Chloride Carbon Dioxide POC Total CO2 Anion Gap POC Anion Gap POC BUN BUN Creatinine POC Creatinine Est Cr Clr Drug Dosing Est GFR ( Amer) Est GFR (Non-Af Amer) BUN/Creatinine Ratio Glucose POC Glucose 163 H POC Glucose (other) Estimat Average Glucose 120 Hemoglobin A1c 5.8 H Calcium POC Ioniz Calcium [place] Phosphorus Magnesium Total Bilirubin AST ALT Alkaline Phosphatase Total Creatine Kinase CK-MB (CK-2) CK/CKMB % Calc POC Troponin I Troponin I 4.810 H* NT-Pro-B Natriuret Pep Total Protein Albumin Globulin Albumin/Globulin Ratio Triglycerides Cholesterol LDL Cholesterol, Calc VLDL Cholesterol, Calc HDL Cholesterol Cholesterol/HDL Ratio Lipase TSH Nasal Screen MRSA (PCR) Blood Type Antibody Screen 06/01/19 11:38 WBC RBC Hgb POC Hgb Hct POC Hct MCV MCH MCHC RDW Std Deviation RDW Coeff of Shakira Plt Count MPV Immature Gran % (Auto) Neut % (Auto) Lymph % (Auto) [place] % (Auto) Eos % (Auto) Baso % (Auto) Immature Gran # (Auto) Neut # (Auto) Lymph # (Auto) [place] # (Auto) Eos # (Auto) Baso # (Auto) PT INR APTT PTT Ratio Activ Coag Time Kaolin POC Sodium Sodium POC Potassium Potassium POC Chloride Chloride Carbon Dioxide POC Total CO2 Anion Gap POC Anion Gap POC BUN BUN Creatinine POC Creatinine Est Cr Clr Drug Dosing Est GFR ( Amer) Est GFR (Non-Af Amer) BUN/Creatinine Ratio Glucose POC Glucose 119 H POC Glucose (other) Estimat Average Glucose Hemoglobin A1c Calcium POC Ioniz Calcium [place] Phosphorus Magnesium Total Bilirubin AST ALT Alkaline Phosphatase Total Creatine Kinase CK-MB (CK-2) CK/CKMB % Calc POC Troponin I Troponin I NT-Pro-B Natriuret Pep Total Protein Albumin Globulin Albumin/Globulin Ratio Triglycerides Cholesterol LDL Cholesterol, Calc VLDL Cholesterol, Calc HDL Cholesterol Cholesterol/HDL Ratio Lipase TSH Nasal Screen MRSA (PCR) Blood Type Antibody Screen Medications Administered Current Inpatient Medications Acetaminophen (Tylenol) 650 mg PO Q4H PRN PRN Reason: Mild Pain (scale 1-3) Stop: 06/30/19 20:41 Aspirin (Ecotrin Ectab) 81 mg PO QAM [facility] Stop: 07/01/19 08:59 Last Admin: 06/01/19 08:48 Dose: 81 mg Documented by: Atorvastatin Calcium (Lipitor) 80 mg PO QAM [facility] Stop: 07/01/19 08:59 Last Admin: 06/01/19 08:48 Dose: 80 mg Documented by: Cyanocobalamin (Vitamin B-12) 1,000 mcg PO DAILY [facility] Stop: 07/01/19 08:59 Last Admin: 06/01/19 08:47 Dose: 1,000 mcg Documented by: Dextrose (Dextrose 50%) 25 - 50 ml IV UD PRN; Protocol PRN Reason: Hypoglycemia Protocol Stop: 06/30/19 22:02 Escitalopram Oxalate (Lexapro Tab) 10 mg PO DAILY [facility] Stop: 07/01/19 08:59 Last Admin: 06/01/19 08:48 Dose: 10 mg Documented by: Gabapentin (Neurontin) 600 mg PO TID [facility] Stop: 07/01/19 08:59 Last Admin: 06/01/19 12:41 Dose: 600 mg Documented by: Glucagon (Glucagen) 1 mg SQ UD PRN; Protocol PRN Reason: Hypoglycemia Protocol Stop: 06/30/19 22:02 Glucose (Dex4 Glucose) 4 - 8 tabs PO UD PRN; Protocol PRN Reason: Hypoglycemia Protocol Stop: 06/30/19 22:02 Glucose (Glucose 40%) 15 - 30 gm PO UD PRN; Protocol PRN Reason: Hypoglycemia Protocol Stop: 06/30/19 22:02 Amiodarone HCl/Dextrose (Nexterone / D5w) 360 mg in 200 mls @ 16.667 mls/hr IV .Q12H [facility] Stop: 07/01/19 02:29 Last Admin: 06/01/19 12:40 Dose: 0.5 mg/min, 16.7 mls/hr Documented by: Insulin Aspart (Novolog Flexpen) 0 units SC ACHS [facility] Stop: 07/01/19 07:29 Last Admin: 06/01/19 11:43 Dose: 1 units Documented by: Insulin Glargine (Lantus Solostar Pen) 0 units SC HS [facility]; Protocol Stop: 07/01/19 20:59 Metoprolol Tartrate (Lopressor) 25 mg PO BID [facility] Stop: 06/30/19 20:59 Last Admin: 06/01/19 08:46 Dose: 25 mg Documented by: Miscellaneous (I[facility] Protocol For Hyperglycemia) 1 ea N/A PRN PRN; Protocol PRN Reason: Hyperglycemia Protocol Stop: 06/02/19 20:45 Miscellaneous (Carbohydrates For Hypoglycemia) 15 - 30 gm PO UD PRN PRN Reason: Hypoglycemia Protocol Stop: 06/30/19 22:02 Miscellaneous Information (Consult Glycemic Management Pharmacy) 1 ea N/A UD PRN PRN Reason: Consult Stop: 06/30/19 22:14 Montelukast Sodium (Singulair) 10 mg PO PM [facility] Stop: 07/01/19 20:59 Nitroglycerin (Nitrostat) 0.4 mg SL PRN PRN PRN Reason: Chest Pain Stop: 06/30/19 20:36 Tecfidera~Non- Formulary Patient's Own Med 1 ea PO BID [facility] Stop: 07/01/19 08:59 Last Admin: 06/01/19 08:50 Dose: 240 mg Documented by: Ondansetron HCl (Zofran) 4 mg IV Q6H PRN PRN Reason: Nausea And Vomiting Stop: 06/30/19 20:41 Potassium Phosphate (Phospha 250 Neutral [id number] Mg) 2 tab PO QID [facility] Stop: 07/01/19 08:59 Last Admin: 06/01/19 12:40 Dose: 2 tab Documented by: Ticagrelor (Brilinta) 90 mg PO BID [facility] Stop: 07/01/19 08:59 Last Admin: 06/01/19 08:46 Dose: 90 mg Documented by: (1) ST elevation [place] (STEMI) Involved coronary artery: unspecified coronary artery Qualified Code(s): I21.3 - ST elevation (STEMI) myocardial infarction of unspecified site
--- NOTE | 2019-06-01 18:15 | Hospitalist Progress Note ---
Date of Service June 01, 2019 Assessment & Plan (1) ST elevation [place] (STEMI): per admitting service notes: -Patient presenting with sudden onset of chest pain, found to have ST elevations in the anterior leads -Heart alert called and patient was taken to the [facility] emergently which show ed severe thrombotic proximal to mid LAD disease at bifurcation with large 1st diagonal and distal thrombus in 1st diagonal with 100% occlusion -s/p successful PCI of proximal to mid LAD with single SAULO and PTCA of ostium of 1st diagonal -Post cardiac catheterization, patient went into V. fib and required defibrillation. Was also started on amiodarone. - BP stable Echo: moderate hypokinesis of the apex, EF 60-65%, grade 3 diastolic dysfunction - continue Aspirin, Brilinta, Metoprolol, Lipitor on Amiodarone, possible Lifevest as outpatient (2) Atrial fibrillation: - rate controlled - continue Metoprolol and Amiodarone (3) LIDIA (acute kidney injury): -Creatinine 1.6 (Baseline ~ 1.0) -Likely prerenal in nature -crea now 1.2 (4) HTN (hypertension): -BP controlled -holding lisinopril/HCTZ for now due to LIDIA -hold amlodipine for now as well (5) DM type 2 (diabetes mellitus, type 2): -hgb a1c 5.7 03/2019 -Holding oral agents and utilize NovoLog per protocol while hospitalized (6) Multiple sclerosis: -Was evaluated in the ED yesterday for MS flare -Received Solu-Medrol 1 g and discharged on prednisone taper -Due to ACS, will hold steroids for now -continue Tecfidera (7) Asthma, mild intermittent: -No signs of acute exacerbation -Does not use routine inhalers at home (8) Depression: -Continue escitalopram (9) DVT prophylaxis: -SCDs for now Subjective ff up for STEMI resting, comfortable remains in A fib, rate controlled denies chest pain, dyspnea, palpitations, dizziness, SOB no other symptoms Review of Systems Review of Systems: All systems reviewed & are unremarkable except as noted in HPI & below Physical Exam Physical Exam: General- oriented x 3, not in distress, speaks in sentences with no effort or accessory muscle use Head- atraumatic Eyes- PERRL, EOMI, anicteric ENT- oropharynx clear Neck- supple, no JVD, no adenopathy, no thyromegaly; carotids +2/2, no bruits appreciated Lungs- clear to auscultation bilaterally, no rales/wheezes Heart- normal rate,irregular rhythm; no murmur, no gallop, no rub appreciated Abdomen- normal bowel sounds, nondistended, soft, nontender, no masses or hepatosplenomegaly Extremities- no pretibial edema, no calf tenderness; peripheral pulses intact Neuro- alert, oriented x 3; CN 2-12 grossly intact; motor 5/5 bilaterally;sensation 100% on all extremities; no other gross focal neurologic deficits Skin- warm & dry Results & Data Vital Signs (Past 12 Hours) Vital Signs Temp Pulse Resp BP Pulse Ox 06/01/19 17:00 76 24 97 06/01/19 16:31 67 21 109/65 95 06/01/19 16:02 57 L 22 122/65 99 06/01/19 16:00 56 L 21 95 06/01/19 15:31 56 L 19 110/69 96 06/01/19 15:01 56 L 20 123/74 95 06/01/19 15:00 53 L 20 95 06/01/19 14:31 57 L 19 115/72 99 06/01/19 14:01 36.8 C 53 L 14 116/75 97 06/01/19 14:00 57 L 20 97 06/01/19 13:31 61 14 119/67 98 06/01/19 13:01 57 L 25 H 122/76 98 06/01/19 13:00 54 L 26 H 97 06/01/19 12:31 64 29 H 115/74 96 06/01/19 12:01 63 27 H 122/73 97 06/01/19 12:00 59 L 13 97 06/01/19 11:31 51 L 19 126/73 95 06/01/19 11:00 60 20 118/88 96 06/01/19 10:30 64 23 128/85 97 06/01/19 10:01 64 20 108/88 99 06/01/19 10:00 63 13 99 06/01/19 09:30 67 22 127/86 96 06/01/19 09:01 67 18 133/83 97 06/01/19 09:00 66 19 98 06/01/19 08:30 68 22 132/85 96 06/01/19 08:01 71 21 121/67 97 06/01/19 08:00 37.2 C 66 14 98 06/01/19 07:31 63 17 135/87 95 06/01/19 07:00 60 29 H 137/86 96 06/01/19 06:30 66 20 126/88 97 06/01/19 06:29 72 21 127/97 96 06/01/19 06:14 63 19 123/84 99 Laboratory Results Laboratory Results - last 24 hr 05/31/19 05/31/19 05/31/19 18:39 18:39 18:39 WBC 11.40 H RBC 5.54 Hgb 15.3 POC Hgb Hct 46.3 POC Hct MCV 83.6 MCH 27.6 MCHC 33.0 RDW Std Deviation 45.3 RDW Coeff of Shakira 14.7 H Plt Count 178 MPV 11.8 H Immature Gran % (Auto) 0.2 Neut % (Auto) 90.1 Lymph % (Auto) 6.9 Beadle % (Auto) 2.8 Eos % (Auto) 0.0 Baso % (Auto) 0.0 Immature Gran # (Auto) 0.02 Neut # (Auto) 10.27 H Lymph # (Auto) 0.79 L Beadle # (Auto) 0.32 Eos # (Auto) 0.00 Baso # (Auto) 0.00 PT 10.9 INR 1.1 APTT < 20.0 L PTT Ratio 0.7 Activ Coag Time Kaolin POC Sodium Sodium POC Potassium Potassium POC Chloride Chloride Carbon Dioxide POC Total CO2 Anion Gap POC Anion Gap POC BUN BUN Creatinine POC Creatinine Est Cr Clr Drug Dosing Est GFR ( Amer) Est GFR (Non-Af Amer) BUN/Creatinine Ratio Glucose POC Glucose POC Glucose (other) Estimat Average Glucose Hemoglobin A1c Calcium POC Ioniz Calcium Santa Phosphorus Magnesium Total Bilirubin AST ALT Alkaline Phosphatase Total Creatine Kinase CK-MB (CK-2) CK/CKMB % Calc POC Troponin I Troponin I NT-Pro-B Natriuret Pep Total Protein Albumin Globulin Albumin/Globulin Ratio Triglycerides Cholesterol LDL Cholesterol, Calc VLDL Cholesterol, Calc HDL Cholesterol Cholesterol/HDL Ratio Lipase TSH Nasal Screen MRSA (PCR) Blood Type B Positive Antibody Screen NEGATIVE 05/31/19 05/31/19 05/31/19 18:39 18:41 18:43 WBC RBC Hgb POC Hgb 16.3 Hct POC Hct 48 MCV MCH MCHC RDW Std Deviation RDW Coeff of Shakira Plt Count MPV Immature Gran % (Auto) Neut % (Auto) Lymph % (Auto) Beadle % (Auto) Eos % (Auto) Baso % (Auto) Immature Gran # (Auto) Neut # (Auto) Lymph # (Auto) Beadle # (Auto) Eos # (Auto) Baso # (Auto) PT INR APTT PTT Ratio Activ Coag Time Kaolin POC Sodium 141 Sodium 142 POC Potassium 4.4 Potassium 4.7 D POC Chloride 104 Chloride 107 Carbon Dioxide 27 POC Total CO2 28 Anion Gap 8.0 POC Anion Gap 15.0 L POC BUN 22 H BUN 21 H Creatinine 1.65 H D POC Creatinine 1.4 H Est Cr Clr Drug Dosing 79.1 Est GFR ( Amer) 55.7 Est GFR (Non-Af Amer) 48.0 BUN/Creatinine Ratio 12.5 Glucose 127 H POC Glucose POC Glucose (other) 128 H Estimat Average Glucose Hemoglobin A1c Calcium 9.4 POC Ioniz Calcium Santa 1.21 Phosphorus Magnesium 2.1 Total Bilirubin 0.6 AST 20 ALT 28 Alkaline Phosphatase 68 Total Creatine Kinase 448 H CK-MB (CK-2) 3.9 H CK/CKMB % Calc 0.9 POC Troponin I < 0.03 Troponin I < 0.015 NT-Pro-B Natriuret Pep 63 Total Protein 7.9 Albumin 4.0 Globulin 3.9 Albumin/Globulin Ratio 1.0 Triglycerides Cholesterol LDL Cholesterol, Calc VLDL Cholesterol, Calc HDL Cholesterol Cholesterol/HDL Ratio Lipase 647 H TSH 0.705 Nasal Screen MRSA (PCR) Blood Type Antibody Screen 05/31/19 05/31/19 05/31/19 19:29 20:00 21:00 WBC RBC Hgb POC Hgb Hct POC Hct MCV MCH MCHC RDW Std Deviation RDW Coeff of Shakira Plt Count MPV Immature Gran % (Auto) Neut % (Auto) Lymph % (Auto) Beadle % (Auto) Eos % (Auto) Baso % (Auto) Immature Gran # (Auto) Neut # (Auto) Lymph # (Auto) Beadle # (Auto) Eos # (Auto) Baso # (Auto) PT INR APTT PTT Ratio Activ Coag Time Kaolin 186 H 230 H POC Sodium Sodium POC Potassium Potassium POC Chloride Chloride Carbon Dioxide POC Total CO2 Anion Gap POC Anion Gap POC BUN BUN Creatinine POC Creatinine Est Cr Clr Drug Dosing Est GFR ( Amer) Est GFR (Non-Af Amer) BUN/Creatinine Ratio Glucose POC Glucose POC Glucose (other) Estimat Average Glucose Hemoglobin A1c Calcium POC Ioniz Calcium Santa Phosphorus Magnesium Total Bilirubin AST ALT Alkaline Phosphatase Total Creatine Kinase CK-MB (CK-2) CK/CKMB % Calc POC Troponin I Troponin I NT-Pro-B Natriuret Pep Total Protein Albumin Globulin Albumin/Globulin Ratio Triglycerides Cholesterol LDL Cholesterol, Calc VLDL Cholesterol, Calc HDL Cholesterol Cholesterol/HDL Ratio Lipase TSH Nasal Screen MRSA (PCR) Negative Blood Type Antibody Screen 05/31/19 06/01/19 06/01/19 22:12 02:37 02:37 WBC 14.80 H RBC 5.26 Hgb 14.5 POC Hgb Hct 43.8 POC Hct MCV 83.3 MCH 27.6 MCHC 33.1 RDW Std Deviation 44.5 RDW Coeff of Shakira 14.8 H Plt Count 196 MPV 11.9 H Immature Gran % (Auto) 0.4 Neut % (Auto) 89.6 Lymph % (Auto) 5.5 Beadle % (Auto) 4.5 Eos % (Auto) 0.0 Baso % (Auto) 0.0 Immature Gran # (Auto) 0.06 H Neut # (Auto) 13.26 H Lymph # (Auto) 0.82 L Beadle # (Auto) 0.66 H Eos # (Auto) 0.00 Baso # (Auto) 0.00 PT INR APTT PTT Ratio Activ Coag Time Kaolin POC Sodium Sodium 137 POC Potassium Potassium 4.1 POC Chloride Chloride 105 Carbon Dioxide 29 POC Total CO2 Anion Gap 3.0 POC Anion Gap POC BUN BUN 19 H Creatinine 1.21 D POC Creatinine Est Cr Clr Drug Dosing 107.7 Est GFR ( Amer) 81.0 Est GFR (Non-Af Amer) 69.9 BUN/Creatinine Ratio 16.1 Glucose 138 H POC Glucose 136 H POC Glucose (other) Estimat Average Glucose Hemoglobin A1c Calcium 8.4 L POC Ioniz Calcium Santa Phosphorus 2.3 L Magnesium 2.1 Total Bilirubin AST ALT Alkaline Phosphatase Total Creatine Kinase CK-MB (CK-2) CK/CKMB % Calc POC Troponin I Troponin I 1.960 H* NT-Pro-B Natriuret Pep Total Protein Albumin Globulin Albumin/Globulin Ratio Triglycerides 85 Cholesterol 186 LDL Cholesterol, Calc 117 VLDL Cholesterol, Calc 17 HDL Cholesterol 52 Cholesterol/HDL Ratio 4 Lipase 174 TSH Nasal Screen MRSA (PCR) Blood Type Antibody Screen 06/01/19 06/01/19 06/01/19 02:37 07:54 08:46 WBC RBC Hgb POC Hgb Hct POC Hct MCV MCH MCHC RDW Std Deviation RDW Coeff of Shakira Plt Count MPV Immature Gran % (Auto) Neut % (Auto) Lymph % (Auto) Beadle % (Auto) Eos % (Auto) Baso % (Auto) Immature Gran # (Auto) Neut # (Auto) Lymph # (Auto) Beadle # (Auto) Eos # (Auto) Baso # (Auto) PT INR APTT PTT Ratio Activ Coag Time Kaolin POC Sodium Sodium POC Potassium Potassium POC Chloride Chloride Carbon Dioxide POC Total CO2 Anion Gap POC Anion Gap POC BUN BUN Creatinine POC Creatinine Est Cr Clr Drug Dosing Est GFR ( Amer) Est GFR (Non-Af Amer) BUN/Creatinine Ratio Glucose POC Glucose 163 H POC Glucose (other) Estimat Average Glucose 120 Hemoglobin A1c 5.8 H Calcium POC Ioniz Calcium Santa Phosphorus Magnesium Total Bilirubin AST ALT Alkaline Phosphatase Total Creatine Kinase CK-MB (CK-2) CK/CKMB % Calc POC Troponin I Troponin I 4.810 H* NT-Pro-B Natriuret Pep Total Protein Albumin Globulin Albumin/Globulin Ratio Triglycerides Cholesterol LDL Cholesterol, Calc VLDL Cholesterol, Calc HDL Cholesterol Cholesterol/HDL Ratio Lipase TSH Nasal Screen MRSA (PCR) Blood Type Antibody Screen 06/01/19 06/01/19 11:38 16:58 WBC RBC Hgb POC Hgb Hct POC Hct MCV MCH MCHC RDW Std Deviation RDW Coeff of Shakira Plt Count MPV Immature Gran % (Auto) Neut % (Auto) Lymph % (Auto) Beadle % (Auto) Eos % (Auto) Baso % (Auto) Immature Gran # (Auto) Neut # (Auto) Lymph # (Auto) Beadle # (Auto) Eos # (Auto) Baso # (Auto) PT INR APTT PTT Ratio Activ Coag Time Kaolin POC Sodium Sodium POC Potassium Potassium POC Chloride Chloride Carbon Dioxide POC Total CO2 Anion Gap POC Anion Gap POC BUN BUN Creatinine POC Creatinine Est Cr Clr Drug Dosing Est GFR ( Amer) Est GFR (Non-Af Amer) BUN/Creatinine Ratio Glucose POC Glucose 119 H 158 H POC Glucose (other) Estimat Average Glucose Hemoglobin A1c Calcium POC Ioniz Calcium Santa Phosphorus Magnesium Total Bilirubin AST ALT Alkaline Phosphatase Total Creatine Kinase CK-MB (CK-2) CK/CKMB % Calc POC Troponin I Troponin I NT-Pro-B Natriuret Pep Total Protein Albumin Globulin Albumin/Globulin Ratio Triglycerides Cholesterol LDL Cholesterol, Calc VLDL Cholesterol, Calc HDL Cholesterol Cholesterol/HDL Ratio Lipase TSH Nasal Screen MRSA (PCR) Blood Type Antibody Screen (1) ST elevation NE (STEMI) Involved coronary artery: unspecified coronary artery Qualified Code(s): I21.3 - ST elevation (STEMI) myocardial infarction of unspecified site
[2019-06-01] MEDS: MONTELUKAST SODIUM 10 MG TABLET PO SCH (20:07)
[2019-06-01] MEDS ORDERED: INSULIN GLARGINE SOLOSTAR 100 UNITS/ML 3 ML PEN SC SCH (21:00)
[2019-06-02 05:12] LABS: BUN Creatinine Ratio 21.6 (10-20); Creatinine Clr Calc Pharmacy 114.3 ml/min; Est GFR (Non-African American) 75.1; Phosphorus 4.3 mg/dl (2.5-4.9); Potassium 3.3 mmol/L (3.5-5.1)
[2019-06-02] MEDS ORDERED: POTASSIUM CHLORIDE 20 MEQ TABCR PO STA (05:43)
[2019-06-02] MEDS: ESCITALOPRAM OXALATE 10 MG TAB PO SCH (08:26)
[2019-06-02] MEDS: ATORVASTATIN 40 MG TAB PO SCH (08:26)
[2019-06-02] MEDS: TICAGRELOR 90 MG TAB PO SCH ×2 (08:26→21:59)
[2019-06-02] MEDS: ASPIRIN 81 MG ECTAB PO SCH (08:26)
[2019-06-02] MEDS: GABAPENTIN 600 MG TAB PO SCH ×3 (08:27→21:57)
[2019-06-02] MEDS: POT PHOSPHATE MONOBASIC W/ SOD TAB PO SCH (08:28)
[2019-06-02] MEDS: CYANOCOBALAMIN 500 MCG TABLET (VITAMIN B-12) PO SCH (08:28)
[2019-06-02] MEDS: TECFIDERA PO SCH ×2 (08:28→21:58)
[2019-06-02] MEDS: INSULIN ASPART 100 UNITS/ML 3 ML PEN SC SCH ×4 (08:36→23:34)
[2019-06-02] MEDS: POTASSIUM CHLORIDE 20 MEQ TABCR PO SCH ×2 (08:39→22:29)
--- NOTE | 2019-06-02 08:51 | Pharmacy Report ---
Glycemic Control Progress Note - Date of Service June 02, 2019 - Scope Glycemic Pharmacist consulted for glycemic control to write orders per [facility] inpatient glycemic control protocol. - Objective Accuchecks BSG(last 24 hours):: 06/01/19 06/01/19 06/01/19 11:38 16:58 20:13 Glucose POC Glucose 119 H 158 H 124 H 06/02/19 06/02/19 04:29 06:04 Glucose 103 H POC Glucose 100 H HbA1c:: Hemoglobin A1c 5.8 % (4.5-5.6) H 06/01/19 02:37 - Recent Pertinent Medications The patient is currently receiving: * Basal insulin: Lantus -- units every -- hours * Correctional Insulin: Novolog Correction per scale ACHS Goal Range: Low 140 mg/dL - High 180 mg/dL Correction Factor: 35 mg/dL/unit * Prandial insulin: Per carb ratio of 1 unit per 15 grams CHO consumed - Outpatient Anti-Diabetic Meds METFORMIN 500 MG PO BID (patient recently on steroids) - Assessment & Plan ASSESSMENT: * See progress note from 05/31/19 for more background info, in short: * Pt receiving SQ basal bolus insulin regimen for hyperglycemia secondary to baseline DM (outpatient regimen on hold). Patient POD 2 for cardiac catheterization. * Patient is currently receiving an average of 9 units of insulin per day * - units of basal insulin * 9 units of prandial/correctional insulin * BSGs ranging 119 - 163 mg/dl over the past 24hrs * Changes needed to insulin regimen: * AM Fasting BSG = 100 mg/dl. This is in goal range for patient based on inpatient targets and co-morbidities. Therefore Basal insulin will continue to be held. * Post-prandial BSGs were all below range. Removed carbohydrate ratio today as patient's HbA1C is extremely well controlled on oral therapy PLUS patient is not on steroids here. If blood sugars creep back up above 160 mg/dL will re-add carbohydrate ratio. Correction factor remains. Goal range decreased. * Total daily dose = <10 units. * Additional notes / comments: consider restarting metformin 06/03/19 PLAN FOR INPATIENT GLYCEMIC CONTROL: * Continuing correction factor of 35 mg/dl/unit * HOLDING carb ratio -- restart if blood sugars over 160 mg/dL * Continuing goal range of Low 110 mg/dL - High 140 mg/dL RECOMMENDATIONS FOR DISCHARGE: * Patient's HbA1C well controlled. May continue home regimen. Consider close follow-up if patient starts steroids again. Thank you.
--- NOTE | 2019-06-02 13:17 | Hospitalist Progress Note ---
Date of Service June 02, 2019 Assessment & Plan (1) ST elevation [place] (STEMI): (1) ST elevation [place] (STEMI): per admitting service notes: -Patient presenting with sudden onset of chest pain, found to have ST elevations in the anterior leads -Heart alert called and patient was taken to the [facility] emergently which showed severe thrombotic proximal to mid LAD disease at bifurcation with large 1st diagonal and distal thrombus in 1st diagonal with 100% occlusion -s/p successful PCI of proximal to mid LAD with single SAULO and PTCA of ostium of 1st diagonal -Post cardiac catheterization, patient went into V. fib and required defibrillation. Was also started on amiodarone. - BP stable Echo: moderate hypokinesis of the apex, EF 60-65%, grade 3 diastolic dysfunction -Stable overall - continue Aspirin, Brilinta, Metoprolol, Lipitor Off amiodarone, possible Lifevest as outpatient (2) Atrial fibrillation: -Now back to sinus rhythm, off amiodarone (3) LIDIA (acute kidney injury): -Creatinine 1.6 (Baseline ~ 1.0) -Likely prerenal in nature -crea now 1.1 (4) HTN (hypertension): -BP at goal -holding lisinopril/HCTZ for now due to LIDIA -hold amlodipine for now as well (5) DM type 2 (diabetes mellitus, type 2): -hgb a1c 5.7 03/2019 -Holding oral agents and utilize NovoLog per protocol while hospitalized (6) Multiple sclerosis: -Was evaluated in the ED day before admission for MS flare -Received Solu-Medrol 1 g and discharged on prednisone taper -Due to ACS, steroids held -No signs and symptoms of flareup -continue Tecfidera (7) Asthma, mild intermittent: -No signs of acute exacerbation -Does not use routine inhalers at home (8) Depression: -Continue escitalopram (9) DVT prophylaxis: -SCDs for now Disposition Anticipate discharge to home tomorrow medically stable and cleared by cardiology service Subjective Follow-up for ST elevation [place] Seen resting in bed, awake, alert, comfortable, in good spirits Denies recurrence of chest pain No active shortness of breath, palpitations, nausea, dizziness Ambulated in the halls yesterday with no problems Converted to sinus rhythm overnight, amiodarone drip discontinued Review of Systems Review of Systems: All systems reviewed & are unremarkable except as noted in HPI & below Physical Exam Physical Exam: General- oriented x 3, not in distress, speaks in sentences with no effort or accessory muscle use Eyes- anicteric Neck- no JVD Lungs- clear breath sounds, no crackles, no wheezing bilaterally Heart- normal rate, regular rhythm; no murmurs Abdomen- normal bowel sounds, nondistended, soft, nontender Extremities- no pretibial edema, no calf tenderness Neuro- alert, oriented x 3; no gross focal neurologic deficits Skin- warm & dry Results & Data Vital Signs (Past 12 Hours) Vital Signs Temp Pulse Pulse Resp BP Pulse Ox 06/02/19 11:00 57 L 18 119/66 97 06/02/19 10:00 52 L 18 115/71 95 06/02/19 09:00 56 L 18 120/61 95 06/02/19 08:00 59 L 16 114/65 95 06/02/19 07:39 48 L 18 98 06/02/19 07:00 36.6 C 43 L 16 108/72 98 06/02/19 06:00 52 L 17 106/65 98 06/02/19 05:00 45 L 18 111/64 98 06/02/19 04:00 36.7 C 46 L 15 119/78 98 06/02/19 03:00 48 L 17 103/67 99 06/02/19 02:00 47 L 12 127/79 98 Laboratory Results Laboratory Results - last 24 hr 06/01/19 06/01/19 06/01/19 16:58 19:11 20:13 Sodium Potassium Chloride Carbon Dioxide Anion Gap BUN Creatinine Est Cr Clr Drug Dosing Est GFR ( Amer) Est GFR (Non-Af Amer) BUN/Creatinine Ratio Glucose POC Glucose 158 H 124 H Calcium Phosphorus Troponin I 5.390 H* 06/02/19 06/02/19 06/02/19 04:29 04:29 06:04 Sodium 138 Potassium 3.3 L D Chloride 105 Carbon Dioxide 31 Anion Gap 2.0 L BUN 25 H Creatinine 1.14 Est Cr Clr Drug Dosing 114.3 Est GFR ( Amer) 87.0 Est GFR (Non-Af Amer) 75.1 BUN/Creatinine Ratio 21.6 H Glucose 103 H POC Glucose 100 H Calcium 8.0 L Phosphorus 4.3 D Troponin I 3.780 H* 06/02/19 11:04 Sodium Potassium Chloride Carbon Dioxide Anion Gap BUN Creatinine Est Cr Clr Drug Dosing Est GFR ( Amer) Est GFR (Non-Af Amer) BUN/Creatinine Ratio Glucose POC Glucose 99 Calcium Phosphorus Troponin I (1) ST elevation [place] (STEMI) Involved coronary artery: unspecified coronary artery Qualified Code(s): I21.3 - ST elevation (STEMI) myocardial infarction of unspecified site
--- NOTE | 2019-06-02 13:57 | Cardiology Progress Note ---
Date of Service June 02, 2019 Assessment & Plan (1) ST elevation [place] (STEMI): Status post successful PCI to the LAD with only apical hypokinesis on echocardiogram now. Has been started on dual antiplatelet therapy, tolerating well We will continue with maximum dose atorvastatin. Currently relative bradycardia is preventative from a continuation of beta- wali, will follow Monitor in ICU for at least 24 hours and then transferred to telemetry for a total of 72 hours of observation (2) Atrial fibrillation: Spontaneously converted to normal sinus rhythm last evening. Amiodarone has since been discontinued due to bradycardia as well as the beta- wali. We will continue to monitor on telemetry for now and attempt to initiate beta- blockade as but heart rate allows. Given the transient nature in the clinical setting I do not see any role for full dose anticoagulation on discharge. (3) Ventricular fibrillation: Possibly secondary to vessel occlusion during PCI Given the clinical context will not require LifeVest on discharge. Again we will attempt to maximize beta-blockade his resting heart rate allows. (4) DAVE (obstructive sleep apnea): Very high likelihood given his body habitus along with mild enlargement of the RV on echocardiogram. We will obtain an overnight nocturnal pulse ox Subjective Patient seen and examined with significant other at bedside. States that he feels well with no events overnight. Denies experiencing chest pain, shortness of breath, palpitations, lightheadedness, dizziness or syncope. Telemetry reviewed: Spontaneously converted to normal sinus rhythm at approximately 2300 last evening. Has remained in sinus bradycardia. Review of Systems Review of Systems: All systems reviewed & are unremarkable except as noted in HPI & below Physical Exam Physical Exam: General: Awake, alert and oriented x 3. No acute distress. HEENT: Normocephalic, atraumatic. Pupils equal, round and reactive to light and accommodation. Extraocular muscles are intact. Anicteric sclera. Moist mucous membranes. Neck: No JVD. No bruit. Cardiovascular: Regular. Positive S-4. Normal S-1 and S-2. No S-3. No murmurs or rubs. Pulmonary: Clear to auscultation B/L. No rales, rhonchi or wheezing Abdomen: Bowel sounds x 4, soft. No rebound, guarding or tenderness. No organomegaly. Extremities: No clubbing, cyanosis or edema. +2 pedal pulses bilaterally. Skin: Warm and dry. Results & Data Vital Signs (Past 12 Hours) Vital Signs Temp Pulse Pulse Resp BP Pulse Ox 06/02/19 11:00 57 L 18 119/66 97 06/02/19 10:00 52 L 18 115/71 95 06/02/19 09:00 56 L 18 120/61 95 06/02/19 08:00 59 L 16 114/65 95 06/02/19 07:39 48 L 18 98 06/02/19 07:00 36.6 C 43 L 16 108/72 98 06/02/19 06:00 52 L 17 106/65 98 06/02/19 05:00 45 L 18 111/64 98 06/02/19 04:00 36.7 C 46 L 15 119/78 98 06/02/19 03:00 48 L 17 103/67 99 06/02/19 02:00 47 L 12 127/79 98 (1) ST elevation [place] (STEMI) Involved coronary artery: unspecified coronary artery Qualified Code(s): I21.3 - ST elevation (STEMI) myocardial infarction of unspecified site
[2019-06-02] MEDS: MONTELUKAST SODIUM 10 MG TABLET PO SCH (21:57)
[2019-06-03] MEDS: INSULIN ASPART 100 UNITS/ML 3 ML PEN SC SCH (08:04)
[2019-06-03] MEDS: GABAPENTIN 600 MG TAB PO SCH (08:06)
[2019-06-03] MEDS: POTASSIUM CHLORIDE 20 MEQ TABCR PO SCH (08:06)
[2019-06-03] MEDS: CYANOCOBALAMIN 500 MCG TABLET (VITAMIN B-12) PO SCH (08:06)
[2019-06-03] MEDS: TICAGRELOR 90 MG TAB PO SCH (08:06)
[2019-06-03] MEDS: ATORVASTATIN 40 MG TAB PO SCH (08:06)
[2019-06-03] MEDS: ESCITALOPRAM OXALATE 10 MG TAB PO SCH (08:06)
[2019-06-03] MEDS: TECFIDERA PO SCH (08:07)
[2019-06-03] MEDS: ASPIRIN 81 MG ECTAB PO SCH (08:07)
--- NOTE | 2019-06-03 08:53 | Cardiology Progress Note ---
Date of Service June 03, 2019 Assessment & Plan (1) ST elevation [place] (STEMI): Status post successful PCI to the LAD with only apical hypokinesis on echocardiogram now. Has been started on dual antiplatelet therapy, tolerating well We will continue with maximum dose atorvastatin. Currently relative bradycardia is preventative from a continuation of beta- wali, will follow bp well controlled, no room for rick/arb ok to d/c to home (patient's father yesterday) no travel restrictions from cardiac standpoint medication adherence stressed my office will call to arrange f/u with me in 3-4 weeks, should not return to work until seen by me (2) Atrial fibrillation: Spontaneously converted to normal sinus rhythm Given the transient nature in the clinical setting I do not see any role for full dose anticoagulation on discharge. (3) Ventricular fibrillation: Possibly secondary to vessel occlusion during PCI Given the clinical context will not require LifeVest on discharge. Again we will attempt to maximize beta-blockade his resting heart rate allows. (4) DAVE (obstructive sleep apnea): already on nocturnal cpap Subjective Pt seen and examined, states that he continues to feel fine. Denies cp, sob, palpitations, lightheadedness or dizziness. Tele reviewed: sinus rhythm without arrhythmia or significant ectopy. Review of Systems Review of Systems: All systems reviewed & are unremarkable except as noted in HPI & below Physical Exam Physical Exam: General: Awake, alert and oriented x 3. No acute distress. HEENT: Normocephalic, atraumatic. Pupils equal, round and reactive to light and accommodation. Extraocular muscles are intact. Anicteric sclera. Moist mucous membranes. Neck: No JVD. No bruit. Cardiovascular: Regular. Positive S-4. Normal S-1 and S-2. No S-3. No murmurs or rubs. Pulmonary: Clear to auscultation B/L. No rales, rhonchi or wheezing Abdomen: Bowel sounds x 4, soft. No rebound, guarding or tenderness. No organomegaly. Extremities: No clubbing, cyanosis or edema. +2 pedal pulses bilaterally. Skin: Warm and dry. Results & Data Vital Signs (Past 12 Hours) Vital Signs Temp Pulse Pulse Resp BP BP Pulse Ox 06/03/19 06:55 36.7 C 55 L 24 129/78 98 06/03/19 05:27 37 C 55 L 22 123/75 97 12/23/19 03:35 56 L 24 97 06/03/19 00:00 36.4 C L 55 L 56 L 18 136/87 98 06/02/19 23:35 53 L 19 98 (1) ST elevation [place] (STEMI) Involved coronary artery: unspecified coronary artery Qualified Code(s): I21.3 - ST elevation (STEMI) myocardial infarction of unspecified site
--- NOTE | 2019-06-03 09:28 | Hospitalist Progress Note ---
Date of Service June 03, 2019 Assessment & Plan (1) ST elevation DC (STEMI): (1) ST elevation DC (STEMI): (1) ST elevation DC (STEMI): per admitting service notes: -Patient presenting with sudden onset of chest pain, found to have ST elevations in the anterior leads -Heart alert called and patient was taken to the [facility] emergently which showed severe thrombotic proximal to mid LAD disease at bifurcation with large 1st diagonal and distal thrombus in 1st diagonal with 100% occlusion -s/p successful PCI of proximal to mid LAD with single SAULO and PTCA of ostium of 1st diagonal -Post cardiac catheterization, patient went into V. fib and required defibrillation. Was also started on amiodarone. - BP stable Echo: moderate hypokinesis of the apex, EF 60-65%, grade 3 diastolic dysfunction - Patient monitored in the ICU, converted to sinus rhythm, amiodarone drip dis continued - Remained stable in telemetry unit, cleared for discharge by link machine operator Dr. Shabazz -Discharge plan Brilinta 90 mg twice a day Aspirin 81 mg daily Metoprolol tartrate 25 mg twice a day Lipitor 80 mg daily Follow-up with Dr. Shabazz at [facility] cardiology clinic in 3 to 4 weeks, clinic to call patient PCP follow-up within 1 week (2) Atrial fibrillation: -Now back to sinus rhythm, off amiodarone (3) LIDIA (acute kidney injury): -Creatinine 1.6 (Baseline ~ 1.0) -Likely prerenal in nature -crea Improved,now 1.1 (4) HTN (hypertension): -BP at goal -holding lisinopril/HCTZ for now due to LIDIA And amlodipine, Blood pressure stable with metoprolol (5) DM type 2 (diabetes mellitus, type 2): -hgb a1c 5.7 03/2019 Resume metforminTomorrow June 04, 2019 (6) Multiple sclerosis: -Was evaluated in the ED day before admission for MS flare -Received Solu-Medrol 1 g and discharged on prednisone taper -Due to ACS, steroids held -No signs and symptoms of flareup -continue Tecfidera (7) Asthma, mild intermittent: -No signs of acute exacerbation -Does not use routine inhalers at home (8) Depression: -Continue escitalopram (9) DVT prophylaxis: -SCDs for now Disposition discharge to home Follow-up with PCP and link machine operator as noted in #1 Subjective Follow-up for ST elevation DC Seen resting in bed, comfortable, not in distress States he feels fine overall No recurrence of chest pain, no shortness of breath, palpitations, dizziness, abdominal pain, nausea Ambulating with no problems States he is ready would like to be discharged today Review of Systems Review of Systems: All systems reviewed & are unremarkable except as noted in HPI & below Physical Exam Physical Exam: General- oriented x 3, not in distress, speaks in sentences with no effort or accessory muscle use Eyes- anicteric Neck- no JVD Lungs- clear breath sounds, No crackles, no wheezing, bilaterally Heart- normal rate, regular rhythm; no murmurs Abdomen- normal bowel sounds, nondistended, soft, nontender Extremities- no pretibial edema, no calf tenderness Neuro- alert, oriented x 3; no gross focal neurologic deficits Skin- warm & dry Results & Data Vital Signs (Past 12 Hours) Vital Signs Temp Pulse Pulse Resp BP BP Pulse Ox 06/03/19 06:55 36.7 C 55 L 24 129/78 98 06/03/19 05:27 37 C 55 L 22 123/75 97 06/03/19 03:35 56 L 24 97 06/03/19 00:00 36.4 C L 55 L 56 L 18 136/87 98 06/02/19 23:35 53 L 19 98 Laboratory Results Noted and reviewed (1) ST elevation DC (STEMI) Involved coronary artery: unspecified coronary artery Qualified Code(s): I21.3 - ST elevation (STEMI) myocardial infarction of unspecified site
[2019-06-03 10:14] LABS: BUN Creatinine Ratio 17.7 (10-20); Calcium 8.4 mg/dl (8.5-10.1); Creatinine Clr Calc Pharmacy 114.3 ml/min; Est GFR (African American) 88.9; Est GFR (Non-African American) 76.7; Potassium 3.8 mmol/L (3.5-5.1)
--- NOTE | 2019-06-03 10:18 | Discharge Summary ---
Date of Service June 03, 2019 Admission HPI Per Admitting Provider 49-year-old male who presents the ED with chest pain. Patient reports he was sitting and watching TV when he had sudden onset of left-sided chest pain with some radiation to the neck. He reports there is also associated diaphoresis, nausea, shortness of breath. EMS was called and patient was brought to the ED for further evaluation. EKG for EMS demonstrated ST elevation in the anterior leads. Heart alert was called and patient was taken to the [facility] emergently. Cardiac cath demonstrated severe thrombotic proximal to mid LAD disease at bifurcation with large 1st diagonal and distal thrombus in 1st diagonal with 100% occlusion. Patient underwent successful PCI of proximal to mid LAD with single SAULO and PTCA of ostium of 1st diagonal. Post cardiac catheterization, patient went into V. fib and required defibrillation. Patient was successfully defibrillated with return to NSR. He is currently hemodynamically stable. Patient was evaluated in the ICU. EKG demonstrates atrial fibrillation. He reports he has some mild residual chest pain rating it a #1/10. No shortness of breath. Denies lightheadedness and dizziness. No diaphoresis or nausea. Yesterday, patient was evaluated in the ED for frequent falls and was diagnosed with an MS flare. Patient received Solu-Medrol 1 g IV in the ED and discharged on prednisone taper. Patient denies any other recent illnesses, fevers, chills. No abdominal pain, vomiting, diarrhea. Denies any urinary symptoms. Admission Exam Per Admitting Provider GENERAL: Awake, alert, uncomfortable-appearing, in no distress, BMI 40.2 HENT: Normocephalic, atraumatic. Oropharynx with dry mucous membranes and otherwise unremarkable. EYES: Normal conjunctiva. Sclera non-icteric. NECK: Supple. No nuchal rigidity. FROM. No JVD. RESPIRATORY: Clear to auscultation bilaterally. CARDIAC: Regular rate, normal rhythm. Extremities warm and well perfused. Pulses equal. ABDOMEN: Soft, non-distended. No tenderness to palpation. No rebound or guarding. No masses. RECTAL: Deferred. MUSCULOSKELETAL: Chest examination reveals no tenderness. The back is symmetrical on inspection without obvious abnormality. There is no CVA tenderness to palpation. No joint edema. LOWER EXTREMITIES: Calves are equal size bilaterally and non-tender. No edema. No discoloration. NEURO: Normal sensorium. No sensory or motor deficits noted. SKIN: No rash or jaundice noted. Principal Diagnosis ST ELEVATION MYOCARDIAL INFARCTION Discharge Exam General- oriented x 3, not in distress, speaks in sentences with no effort or accessory muscle use Eyes- anicteric Neck- no JVD Lungs- clear breath sounds, No crackles, no wheezing, bilaterally Heart- normal rate, regular rhythm; no murmurs Abdomen- normal bowel sounds, nondistended, soft, nontender Extremities- no pretibial edema, no calf tenderness Neuro- alert, oriented x 3; no gross focal neurologic deficits Skin- warm & dry Discharge Data Allergies Allergy/AdvReac Type Severity Reaction Status Date / Time No Known Allergies Allergy NKA Verified 10/05/18 10:50 Consultations 05/31/19 18:52 ED Decision to Admit Stat 05/31/19 20:45 Consult Cardiac Rehabilitation Routine 05/31/19 20:46 Consult Case Management - Discharge Planning Routine Consult Cable Placer Routine 06/01/19 09:30 Consult Cardiology Routine Procedures Performed Operation Date: 05/31/19 18:30 Actual Procedures s Cineradiography w/Routine Exam - Yuan Fink MD p Aspiration/PCI w/SAULO for Stemi - Yuan Fink MD s POBA SGL Vessel - Yuan Fink MD s IVUS Coronary Single Vessel - Yuan Fink MD s IVUS Coronary each ADDL Vessel - Yuan Fink MD s Cath, Left with Cors and Vent - Yuan Fink MD Severe thrombotic proximal to mid LAD disease at bifurcation with large 1st diagonal. Distal thrombus in 1st diagonal with 100% occlusion. Successful PCI of proximal to mid LAD with single SAULO (3.5 x 33 Xience Gia; post-dilated with 4.5 NC). PTCA of ostium of 1st diagonal with 2.5 balloon. VFib x 1 at end of procedure requiring defibrillation x1. Ordered Studies 05/31/19 18:29 CL Cath Imgs for PACS use only Stat 05/31/19 20:58 CL IVUS Coronary Single Vessel Routine Hospital Course (1) ST elevation ME (STEMI): (1) ST elevation ME (STEMI): (1) ST elevation ME (STEMI): per admitting service notes: -Patient presenting with sudden onset of chest pain, found to have ST elevations in the anterior leads -Heart alert called and patient was taken to the [facility] emergently which showed severe thrombotic proximal to mid LAD disease at bifurcation with large 1st diagonal and distal thrombus in 1st diagonal with 100% occlusion -s/p successful PCI of proximal to mid LAD with single SAULO and PTCA of ostium of 1st diagonal Severe thrombotic proximal to mid LAD disease at bifurcation with large 1st diagonal. Distal thrombus in 1st diagonal with 100% occlusion. PCI of proximal to mid LAD with single SAULO (3.5 x 33 Xience Gia; post- dilated with 4.5 NC). PTCA of ostium of 1st diagonal with 2.5 balloon VFib x 1 at end of procedure requiring defibrillation x1. -Post cardiac catheterization, patient went into V. fib and required defibrillation. Was also started on amiodarone. - BP stable Echo: moderate hypokinesis of the apex, EF 60-65%, grade 3 diastolic dysfunction - Patient monitored in the ICU, converted to sinus rhythm, amiodarone drip discontinued - Remained stable in telemetry unit, cleared for discharge by facility administrator Dr. Shabazz -Discharge plan Brilinta 90 mg twice a day Aspirin 81 mg daily Metoprolol tartrate 25 mg twice a day Lipitor 80 mg daily Follow-up with Dr. Shabazz at [facility] cardiology clinic in 3 to 4 weeks, clinic to call patient PCP follow-up within 1 week (2) Atrial fibrillation: -Now back to sinus rhythm, off amiodarone (3) LIDIA (acute kidney injury): -Creatinine 1.6 (Baseline ~ 1.0) -Likely prerenal in nature -crea Improved,now 1.1 - repeat BMP on ff up with PCP this week (4) HTN (hypertension): -BP at goal -holding lisinopril/HCTZ for now due to LIDIA And amlodipine, Blood pressure stable with metoprolol (5) DM type 2 (diabetes mellitus, type 2): -hgb a1c 5.7 03/2019 Resume metformin Tomorrow June 04, 2019 (6) Multiple sclerosis: -Was evaluated in the ED day before admission for MS flare -Received Solu-Medrol 1 g and discharged on prednisone taper -Due to ACS, steroids held -No signs and symptoms of flareup -continue Tecfidera (7) Asthma, mild intermittent: -No signs of acute exacerbation -Does not use routine inhalers at home (8) Depression: -Continue escitalopram Disposition discharge to home Follow-up with PCP and facility administrator as noted in #1 Total Time Total Time Spent Total Time Spent (In Minutes): 40 minutes Discharge Plan Discharge Items Patient Disposition: Home - Self-Care Reason For Visit: ACUTE ME Discharge Diagnosis: ST ELEVATION MYOCARDIAL INFARCTION, STATUS POST CARDIAC CATHETERIZATION, STATUS POST DRUG-ELUTING STENT PLACEMENT Activity: As commented below Activity Comment: Increase activity gradually as tolerated, no heavy exertion Lifting: Wait until after follow-up appointment Sexual Activity: Wait until after follow-up appointment Exercise/Sports: Wait until after follow-up appointment Driving/Machine Use: No driving until reevaluated by primary care physician in follow-up this week Non-emergency contact: Primary Care Provider Call non-emergency contact if: you have any medication questions, you have a fever, your wound has increased redness, your wound has increased drainage and your wound pain has increased Follow-up/Referrals: James Shabazz DO [Physician] - Diet: Carb Consistent or DM2 and Heart Healthy Addtl Attending Provider Instructions: Please review your new medication list and follow instructions carefully. Resume metformin tomorrow June 04, 2019. Call 911 immediately if with recurrence of chest pain not resolved by 1 dose of nitro. Follow-up with primary care physician Dr. Villanueva, associate of Dr. Norman on May at 9:25 AM. Follow-up with facility administrator Dr. Shabazz in 3 to 4 weeks. His clinic will be calling you for an appointment. Pending Studies at Discharge: Yes Studies:: Repeat basic metabolic profile by primary care physician on follow-up this week June 06, 2019 Stand-Alone Forms: My [facility] [employer], Smoking Cessation Medications and DC Order Prescriptions: New Brilinta 90 mg Tablet 90 mg PO BID 30 Days Qty: 60 RF: 2 metoprolol tartrate 25 mg Tablet 25 mg PO BID 30 Days Qty: 60 RF: 2 atorvastatin 80 mg tablet 80 mg PO DAILY 30 Days Qty: 30 RF: 2 Continued escitalopram oxalate 10 mg tablet 10 mg PO DAILY 30 Days Qty: 30 RF: 0 Tecfidera 240 mg capsule,delayed release(DR/EC) 240 mg PO BID RF: 0 aspirin [Aspir-81] 81 mg Tablet,Delayed Release (Dr/Ec) 81 mg PO DAILY RF: 0 tramadol 50 mg Tablet 50 mg PO Q6H PRN (Reason: Pain) RF: 0 gabapentin 300 mg Capsule 600 mg PO TID RF: 0 montelukast 10 mg Tablet 10 mg PO PM RF: 0 albuterol sulfate [ProAir HFA] 90 mcg/actuation Hfa Aerosol Inhaler 2 puff INHALATION QID RF: 0 fluticasone propionate [Flonase Allergy Relief] 50 mcg/actuation [place],Suspension 2 spray INTRANASAL DAILY RF: 0 cholecalciferol (vitamin D3) [Vitamin D3] 1,000 unit Tablet 1,000 unit PO DAILY RF: 0 magnesium oxide 400 mg Capsule 400 mg PO DAILY RF: 0 metformin 500 mg Tablet 500 mg PO BID Qty: 0 RF: 0 Changed nitroglycerin 0.4 mg Tablet, Sublingual 0.4 mg sublingual UD PRN (Reason: Chest Pain) Qty: 14 RF: 0 Discontinued prednisone 10 mg Tablet See Rx Instructions .ROUTE .COMPLEX RF: 0 celecoxib 200 mg Capsule 200 mg PO BID RF: 0 atorvastatin 20 mg Tablet 20 mg PO DAILY RF: 0 amlodipine 10 mg Tablet 10 mg PO DAILY RF: 0 hydrochlorothiazide 25 mg Tablet 25 mg PO DAILY RF: 0 lisinopril 40 mg Tablet 40 mg PO DAILY RF: 0 Discharge Orders: Discharge Order (Routine); Ordered 06/03/19 Ordered By: Chriss Medeiros Admission Data Admit Date/Time: 05/31/19 20:46 Attending Provider: Chriss Medeiros Admit Provider: Yuan Fink Primary Care Provider: Kumar Norman Other Providers: Maribel Tavarez ; Angel Carney ; James Shabazz
--- NOTE | 2019-06-11 13:35 | Coding Query ---
CODING QUERY To promote full compliance with coding requirements relating to patient care, provider participation is requested in all cases of double backer uncertainty. Please assist us with the question(s) below: Coding Question(s): There is Atrial Fibrillation and Ventricular Fibrillation documented in the record. Please clarify below, in your clinical opinion, regarding each. Ventricular Fibrillation ( ) likely an Intraoperative Complication ( ) likely a Postoperative Complication ( ) Not likely a complication of the procedure ( x ) Other: Please Specify not a complication, commonly seen arrhythmia in the setting of LAD infarct Atrial Fibrillation ( ) likely an Intraoperative Complication ( ) likely a Postoperative Complication ( x ) Not likely a complication of the procedure ( ) Other: Please Specify Physician's Response(s): Thank you Charisma Schumacher Principal Diagnosis: "that condition established after study, to be chiefly responsible for occasioning the admission of the patient to the hospital for care." Co-Existing Principal Diagnosis: "when two or more diagnoses equally meet the criteria for principal diagnosis as determined by the circumstances of admission, diagnostic work up, and/or therapy provided, and the Alphabetic Index, Tabular List, or another coding guideline does not provide sequencing direction, any one of the diagnoses may be sequenced first." "When the physician has documented what appears to be a current diagnosis in the body of the record, but has not included the diagnosis in the final diagnostic statement, the physician should be asked whether the diagnosis should be added." (Source Coding Clinic 2 QTR90. p3-4) MARCUS
== END 2019-06-03 11:56 | disposition home or self-care (01) | DRG 246 ==
LOC: ED 18:26 → CC 18:48 → SUATTDRO 20:46 → 1E 20:46 → 2S 06-02 18:56

== ENCOUNTER 2021-04-07 09:36 | Observation (INO) ==
[2021-04-07] MEDS ORDERED: SODIUM CHLORIDE 0.9% 1000ML 1,000 ML IV STA (09:57)
[2021-04-07] MEDS ORDERED: ASPIRIN CHEW 324 MG PO STA (10:05)
--- NOTE | 2021-04-07 10:13 | Emergency Department Note ---
History of Present Illness General Chief complaint: Chest Pain Stated complaint: CHEST PAIN, SOB Time Seen by Provider: 04/07/21 09:46 History of Present Illness Maximum Pain Intensity: 5 This 50-year-old male patient presents to the emergency department today for evaluation of chest pain and shortness of breath. The patient has a history of an NH in 2019. He follows with [facility] cardiology. The patient states he ate breakfast for dinner last evening, developed chest pain shortly after while in bed and thought it to be indigestion. He took an antacid, but did not experience any improvement in his symptoms. The patient states he was feeling okay but still having the pain this morning, went to work when he experienced sudden onset of worsening chest pain which he rated approximately 8/10 at that time and was associated with onset of shortness of breath and diaphoresis. Maldonado ambrocio notes pain is similar in nature as his NH in 2019, but not quite as bad. He states the shortness of breath and diaphoresis has resolved and his current pain is a 5/10 in the mid to left side of his chest. Patient did take his daily medications this morning. Home Medications Medication Instructions Recorded Confirmed Type albuterol sulfate 90 mcg/actuation 2 puff INHALATION QID PRN 10/05/18 04/07/21 History aerosol inhaler (ProAir HFA) cholecalciferol (vitamin D3) 25 1,000 unit PO QAM 10/05/18 04/07/21 History mcg (1,000 unit) tablet (Vitamin D3) fluticasone propionate 50 2 spray INTRANASAL DAILY PRN 10/05/18 04/07/21 History mcg/actuation nasal spray,suspension (Flonase Allergy Relief) gabapentin 300 mg capsule 600 mg PO TID 10/05/18 04/07/21 History magnesium oxide 400 mg PO QAM 10/05/18 04/07/21 History montelukast 10 mg tablet 10 mg PO PM PRN 10/05/18 04/07/21 History tramadol 50 mg tablet 50 mg PO Q6H PRN 10/05/18 04/07/21 History nitroglycerin 0.4 mg sublingual 0.4 mg SUBLINGUAL UD PRN #14 tab 06/03/19 04/07/21 Rx tablet aspirin 81 mg tablet,delayed 81 mg PO QAM 04/29/20 04/07/21 History release rosuvastatin 40 mg tablet 40 mg PO QAM 09/08/20 04/07/21 History dimethyl fumarate 240 mg 240 mg PO BID 30 Days #60 cap 09/29/20 04/07/21 Rx capsule,delayed release (Tecfidera) iron,carbonyl 65 mg-vitamin C 125 1 tab PO QAM 03/01/21 04/07/21 History mg tablet,delayed release (Vitron-C) escitalopram oxalate 10 mg tablet 10 mg PO QAM #90 tab 03/18/21 04/07/21 Rx lisinopril 20 2 tab PO DAILY 04/07/21 04/07/21 History mg-hydrochlorothiazide 12.5 mg tablet Allergies Allergy/AdvReac Type Severity Reaction Status Date / Time No Known Allergies Allergy NKA Verified 03/18/21 08:53 Past Med/Surg History Medical History Asthma, mild intermittent inhaler prn Cognitive impairment Coronary artery disease "minimal disease per cath [facility] 12/06/08" 05/31/2019-STEMI s/p SAULO to LAD and PTCA to first diagonal Depression Diabetic neuropathy DM type 2 (diabetes mellitus, type 2) Dyslipidemia History of esophageal dilatation HTN (hypertension) Morbid obesity with BMI of 40.0-44.9, adult Multiple sclerosis DAVE (obstructive sleep apnea) cpap Osteoarthritis ST elevation NH (STEMI) (~05/31/19) follows with Dr. Shabazz Ventricular fibrillation during cardiac cath Vitamin D deficiency Surgical History H/O arthroscopic knee surgery right History of esophagogastroduodenoscopy (EGD) History of tooth extraction Hx of vasectomy S/P cardiac cath x2--last 2011 @ [facility] with 1 stent placed "2008- minimal luminal irregularities LAD without obstructive disease" Family History Mother Hypertension Other No family history of adverse response to anesthesia Social History Smoking Status: Never smoker Second Hand Exposure: No; Hx Alcohol Use: No Hx Substance Use: No Preferred Language: Honduran Communication Ability: Effective Visual Impairment: No Limitations Hearing Ability: Normal Tour Manager Required: No Beliefs That Will Affect Care: None Current Living Situation: Alone Other Information That Helps Us Care for You: No Feels Safe at Home: Yes Safety Concerns: Feels Safe At This Time Assistive Devices: CPAP Review of Systems A total of 10 systems reviewed and were otherwise negative Physical Exam Vital Signs Vital Signs - 24 hr 04/07/21 09:41 04/07/21 09:50 04/07/21 10:00 Temperature 36.6 C Temperature Source Oral Pulse Rate 65 63 63 Pulse Rate from SpO2 Sensor 64 63 Respiratory Rate 18 16 22 Blood Pressure 133/71 144/79 H Blood Pressure Mean 91 100 Pulse Oximetry 96 98 97 Oxygen Delivery Method Room Air Sepsis Recent Fever Within 48 Hours No Sepsis New/Unexplained Change in Mental Status No Sepsis Action Taken by Nursing No Action Required 04/07/21 10:30 04/07/21 10:44 04/07/21 11:00 Temperature Temperature Source Pulse Rate 63 55 L Pulse Rate from SpO2 Sensor 64 Respiratory Rate 29 H 20 Blood Pressure 152/72 H 148/68 H Blood Pressure Mean 98 94 Pulse Oximetry 96 96 97 Oxygen Delivery Method Room Air Sepsis Recent Fever Within 48 Hours Sepsis New/Unexplained Change in Mental Status Sepsis Action Taken by Nursing VITALS: Vitals are noted on the nurse's note and reviewed by myself. Vital signs stable. GENERAL: This is a 50-year-old obese black male, in no acute distress, nondiaphoretic, well-developed well-nourished. SKIN: The skin was without rashes, erythema, edema, or bruising. There is no tenting of the skin. Capillary refill less than 2 seconds. HEAD: Normocephalic atraumatic. EYES: Conjunctivae without injection, sclerae without icterus. NECK: Supple without nuchal rigidity. No lymphadenopathy. Cervical spine is nontender. No JVD. HEART: Regular rate and rhythm without murmurs gallops or rubs. LUNGS: Clear to auscultation bilaterally without wheezes, rales or rhonchi. No retractions or accessory muscle use. ABDOMEN: Positive bowel sounds x 4. Soft, nontender, without masses or organomegaly. Frankel sign negative. No guarding or rebound tenderness. MUSCULOSKELETAL: No muscle atrophy, erythema, or edema noted. Full range of motion without joint tenderness in all extremities. No tenderness to palpation. Normal gait. Strength 5/5 throughout. NEURO: Patient was alert and oriented to person place and time. No focal neurological deficits. Course Course The patient was seen and evaluated as above. I immediately discussed the case with my attending physician. EKG was reviewed. An order was placed for continuous cardiac monitoring. The monitor shows a normal sinus rhythm at a rate of 60 bpm. IV access obtained, labs drawn. Patient medicated with IV fluids, aspirin, nitroglycerin. Imaging performed and reviewed by myself and radiologist as noted. Labs reviewed by myself. Patient was reassessed. His symptoms have completely resolved after 2 doses of nitroglycerin. He is feeling well and reports pain 0/10 at this time. I again discussed the case with my attending physician. We did agree that ad mission would be the most reasonable plan for this patient. I discussed the findings and recommendation with the patient at bedside. He was agreeable. I discussed the case with the tax audit manager. I discussed the case with HARDY Hart hospitalist. She did agree to see and evaluate the patient for admission. Please see hospitalist dictation regarding ongoing management and care of this patient Administered Medications Discontinued Medications Aspirin (Aspirin Chew 324 Mg) 324 mg PO NOW STA Stop: 04/07/21 10:06 Last Admin: 04/07/21 10:14 Dose: 324 mg Documented by: [id number] Sodium Chloride (Nss 1000ml) 1,000 mls @ 999 mls/hr IV .Q1H1M STA Stop: 04/07/21 10:57 Last Infusion: 04/07/21 11:15 Dose: 0 mls/hr Documented by: [id number] Admin: 04/07/21 10:11 Dose: 999 mls/hr Documented by: [id number] Miscellaneous (*Dimethyl Fumarate [Tecfidera]*Order Awaiting Action) 1 ea N/A Q S [id number] Stop: 05/07/21 15:59 Last Admin: 04/07/21 15:45 Dose: Not Given Documented by: [id number] Nitroglycerin (Nitroglycerin Sl 0.4 Mg/Tab Tab) 0.4 mg SL UD PRN PRN Reason: Chest Pain Stop: 05/07/21 10:04 Last Admin: 04/07/21 10:29 Dose: 0.4 mg Documented by: [id number] Admin: 04/07/21 10:14 Dose: 0.4 mg Documented by: [id number] Medical Decision Making Differential Diagnosis Cardiac ischemia, aortic dissection, pulmonary embolism, pneumothorax, pneumonia, pericarditis, myocarditis, esophageal rupture, GERD, cholecystitis, pancreatitis, musculoskeletal, as well as other pathologies. Medical Records Attestation: I reviewed the patient's medical records. Home Medications Current Medication List: was personally reviewed by me Laboratory Data Attestation: I reviewed the patient's lab results. No leukocytosis, anemia, thrombocytopenia. Renal, hepatic function, and electrolytes without significant abnormality. INR 1.0. Troponin negative. Lipase 399. Result diagrams: 04/07/21 09:55 04/07/21 09:55 Lab Results 04/07/21 04/07/21 04/07/21 Range/Units 09:55 09:55 09:55 WBC 3.76 L (4.8-10.8) K/uL RBC 5.40 (4.7-6.1) M/uL Hgb 14.5 (14.0-18.0) g/dL Hct 44.0 (42-52) % MCV 81.5 (80-100) fL MCH 26.9 (25-34) pg MCHC 33.0 (32-36) g/dL RDW Std Deviation 45.7 (36.4-46.3) fL RDW Coeff of Shakira 15.2 H (11.5-14.5) % Plt Count 159 (130-400) K/uL MPV 11.4 H (7.4-10.4) fL Immature Gran % (Auto) 0.3 % Neut % (Auto) 66.7 % Lymph % (Auto) 21.3 % [place] % (Auto) 10.6 % Eos % (Auto) 0.8 % Baso % (Auto) 0.3 % Neut # (Auto) 2.51 (1.4-6.5) K/uL Lymph # (Auto) 0.80 L (1.2-3.4) K/uL [place] # (Auto) 0.40 (0.11-0.59) K/uL Eos # (Auto) 0.03 (0-0.5) K/uL Baso # (Auto) 0.01 (0-0.2) K/uL Immature Gran # (Auto) 0.01 (0.00-0.02) K/uL PT 10.4 (9.0-12.0) Seconds INR 1.0 (0.9-1.1) APTT 25.1 (21.0-31.0) Seconds PTT Ratio 1.0 Sodium 141 (136-145) mmol/L Potassium 3.7 (3.5-5.1) mmol/L Chloride 107 (98-107) mmol/L Carbon Dioxide 27 (21-32) mmol/L Anion Gap 7.0 (3-11) BUN 20 H (7-18) mg/dl Creatinine 1.11 (0.6-1.4) mg/dl Est Cr Clr Drug Dosing 121.2 ml/min Est GFR ( Amer) 89.3 ml/min Est GFR (Non-Af Amer) 77.0 ml/min BUN/Creatinine Ratio 18.4 (10-20) Glucose 89 (70-99) mg/dl Calcium 9.8 (8.5-10.1) mg/dl Total Bilirubin 1.1 H (0.2-1) mg/dl AST 33 (15-37) U/L ALT 36 (12-78) U/L Alkaline Phosphatase 55 (45-117) U/L Troponin I < 0.015 (0-0.045) ng/ml Total Protein 7.5 (6.4-8.2) gm/dl Albumin 4.0 (3.4-5.0) gm/dl Globulin 3.5 (2.5-4.0) gm/dl Albumin/Globulin Ratio 1.1 (0.9-2) Lipase 399 H (73-393) U/L Imaging Data Radiologist's Impression: Chest X-Ray 04/07/21 09:57 XR chest 1V portable HISTORY: 50 years-old Male Chest Pain . Acute atypical chest pain COMPARISON: Chest radiograph 04/29/2020 TECHNIQUE: Portable AP view of the chest FINDINGS: Cardiomediastinal and hilar silhouettes are within normal limits. There is no pneumothorax, pleural effusion, airspace consolidation or overt pulmonary edema. Spondylitic spurring of the spine. No acute fracture. IMPRESSION: No acute process. ACT 112: Negative or not required by law. The above report was generated using voice recognition software. It may contain grammatical, syntax or spelling errors. Electronically signed by: Jeremy Tyler M.D. 04/07/2021 10:30 AM ECG Data Attestation: I personally reviewed and interpreted this ECG as follows: Indication: + chest pain Rate (beats per minute): 60 Rhythm: + normal sinus ECG [place]: + Left axis deviation ECG ST segments: no ST depression, no ST elevation or no T-wave inversions Comparison ECG Date: from (04/29/2020) Change: no significant change Blood Pressure Blood Pressure Findings: Elevated blood pressure Blood Pressure Disposition: further management by hospitalist MDM Narrative This 50-year-old male patient with significant past medical history of STEMI presents to the emergency department today for evaluation of chest pain, similar nature to pain he experienced with his STEMI about 1 year ago. Symptoms began last evening EKG without ischemic changes at this time. Initial troponin test negative. Symptoms worsen suddenly this morning while at work and were associated with shortness of breath and diaphoresis. Given patient's history and risk factors, he will be admitted to the hospitalist service for further renetta luation and management of his complaints. Please see hospitalist dictation regarding ongoing management and care of this patient. The chart was completed utilizing [employer] Speech voice recognition software. Grammatical errors, random word insertions, pronoun errors, and incomplete sentences are an occasional consequence of this system due to software limitations, ambient noise, and hardware issues. Any formal questions or concerns about the content, text, or information contained within the body of this dictation should be directly addressed to the provider for clarification. Impression & Plan Chest pain, HTN (hypertension), Obesity (BMI 30-39.9), DM type 2 (diabetes mellitus, type 2) Discharge Plan Visit Data Chief Complaint: Chest Pain Stated Complaint: CHEST PAIN, SOB ED Provider: Vel Anderson ED Midlevel Provider: Josephine Riggs Discharge Problem: Chest pain, HTN (hypertension), Obesity (BMI 30-39.9), DM type 2 (diabetes mellitus, type 2) Patient Disposition: Admitted As Inpatient Discharge Instructions Interventions: ED Discharge Assessment Last Done: 04/07/21 13:17
[2021-04-07] MEDS: NITROGLYCERIN SL 0.4 MG/TAB TAB SL PRN ×2 (10:14→10:29)
[2021-04-07 10:19] LABS: Basophils # (auto) 0.01 K/uL (0-0.2); Basophils % (auto) 0.3 %; Eosinophils # (auto) 0.03 K/uL (0-0.5); Eosinophils % (auto) 0.8 %; Hemoglobin 14.5 g/dL (14.0-18.0); Immature Granulocytes # (auto) 0.01 K/uL (0.00-0.02); Immature Granulocytes % (auto) 0.3 %; Lymphocytes % (auto) 21.3 %; Mean Corpuscular Hemoglobin 26.9 pg (25-34); Mean Corpuscular Volume 81.5 fL (80-100); Mean Platelet Volume 11.4 fL (7.4-10.4); Monocytes % (auto) 10.6 %; Neutrophils # (auto) 2.51 K/uL (1.4-6.5); Neutrophils % (auto) 66.7 %; Platelet Count 159 K/uL (130-400); RDW Coefficient of Variation 15.2 % (11.5-14.5); RDW Standard Deviation 45.7 fL (36.4-46.3); White Blood Count 3.76 K/uL (4.8-10.8)
[2021-04-07 10:24] LABS: Partial Thromboplastin Time 25.1 Seconds (21.0-31.0); Prothrombin Time 10.4 Seconds (9.0-12.0)
[2021-04-07 10:27] LABS: Alanine Aminotransferase 36 U/L (12-78); Aspartate Aminotransferase 33 U/L (15-37); BUN Creatinine Ratio 18.4 (10-20); Blood Urea Nitrogen 20 mg/dl (7-18); Calcium 9.8 mg/dl (8.5-10.1); Carbon Dioxide 27 mmol/L (21-32); Chloride 107 mmol/L (98-107); Creatinine Clr Calc Pharmacy 121.2 ml/min; Est GFR (African American) 89.3 ml/min; Glucose 89 mg/dl (70-99); Lipase 399 U/L (73-393); Potassium 3.7 mmol/L (3.5-5.1); Sodium 141 mmol/L (136-145)
--- NOTE | 2021-04-07 10:31 | XRay Report ---
XR chest 1V portable HISTORY: 50 years-old Male Chest Pain . Acute atypical chest pain COMPARISON: Chest radiograph 04/29/2020 TECHNIQUE: Portable AP view of the chest FINDINGS: Cardiomediastinal and hilar silhouettes are within normal limits. There is no pneumothorax, pleural e ffusion, airspace consolidation or overt pulmonary edema. Spondylitic spurring of the spine. No acute fracture. IMPRESSION: No acute process. ACT 112: Negative or not required by law. The above report was generated using voice recognition software. It may contain grammatical, syntax o r spelling errors. Electronically signed by: Jeremy Tyler M.D. 04/07/2021 10:30 AM
[2021-04-07 10:32] LABS: Albumin Globulin Ratio 1.1 (0.9-2); Alkaline Phosphatase 55 U/L (45-117); Bilirubin,Total 1.1 mg/dl (0.2-1); Globulin 3.5 gm/dl (2.5-4.0); Total Protein 7.5 gm/dl (6.4-8.2); Troponin I < 0.015 ng/ml (0-0.045)
--- NOTE | 2021-04-07 12:31 | History & Physical Report ---
Date of Service April 07, 2021 Assessment & Plan (1) Chest pain: (2) Coronary artery disease: Plan: -Admit to telemetry -Patient presenting from home with reports of epigastric/chest pain with associated shortness of breath and diaphoresis. History of CAD with STEMI 05/2019, s/p PCI to LAD. -In the ED, patient received 2 sublingual nitroglycerin with complete resolution of symptoms. Initial troponin negative, EKG without acute ST changes. -Given epigastric component, GI may be a source of patient's discomfort however given cardiac risk factors, will evaluate for ACS. -Trend troponin, resting echo -Continue ASA, statin. Beta-wali contraindicated due to patient's chronic resting bradycardia. -Cardiology consult, case discussed with Dr. Jeff (3) HTN (hypertension): Plan: -BP controlled, continue lisinopril/HCTZ (4) DM type 2 (diabetes mellitus, type 2): Plan: -Hgb A1c 6.1 01/2021 -Patient reports is currently diet controlled -NovoLog per protocol while hospitalized (5) DAVE (obstructive sleep apnea): Plan: -CPAP as per home settings (6) DVT prophylaxis: History of Present Illness Chief Complaint: Chest pain Primary Care Provider: Kumar Norman MD 50-year-old male PMH DM type II, CAD with history of STEMI 05/2019 s/p PCI to LAD, MS, DAVE on CPAP, mild intermittent asthma, and other problems listed below who presents to the ED for evaluation of chest pain. Patient reports developing indigestion after dinner last evening. Reports he took a couple of Tums without much relief. Was able to go to bed and slept throughout the night. This morning, patient reports he woke feeling in his usual state of health. While he was at work, he developed an epigastric/midsternal chest pain. He had associated diaphoresis and shortness of breath. Patient rates the pain at its worst #8/10. Patient then presented to the ED for further evaluation. He received 2 sublingual nitroglycerin with complete resolution of his symptoms. Patient notes being increasingly fatigued over the past 1 month. Denies any other recent illnesses, fevers, chills. No abdominal pain, nausea, vomiting, diarrhea. No urinary symptoms. In the ED, initial troponin is negative and EKG does not show any acute ST changes. Patient is hemodynamically stable. In addition to the sublingual nitroglycerin, patient also received full dose aspirin and IVF. Allergies Allergy/AdvReac Type Severity Reaction Status Date / Time No Known Allergies Allergy NKA Verified 03/18/21 08:53 Home Medications Medication Instructions Recorded Confirmed Type albuterol sulfate 90 mcg/actuation 2 puff INHALATION QID PRN 10/05/18 04/07/21 History aerosol inhaler (ProAir HFA) cholecalciferol (vitamin D3) 25 1,000 unit PO QAM 10/05/18 04/07/21 History mcg (1,000 unit) tablet (Vitamin D3) fluticasone propionate 50 2 spray INTRANASAL DAILY PRN 10/05/18 04/07/21 History mcg/actuation nasal spray,suspension (Flonase Allergy Relief) gabapentin 300 mg capsule 600 mg PO TID 10/05/18 04/07/21 History magnesium oxide 400 mg PO QAM 10/05/18 04/07/21 History montelukast 10 mg tablet 10 mg PO PM PRN 10/05/18 04/07/21 History tramadol 50 mg tablet 50 mg PO Q6H PRN 10/05/18 04/07/21 History nitroglycerin 0.4 mg sublingual 0.4 mg SUBLINGUAL UD PRN #14 tab 06/03/19 04/07/21 Rx tablet aspirin 81 mg tablet,delayed 81 mg PO QAM 04/29/20 04/07/21 History release rosuvastatin 40 mg tablet 40 mg PO QAM 09/08/20 04/07/21 History dimethyl fumarate 240 mg 240 mg PO BID 30 Days #60 cap 09/29/20 04/07/21 Rx capsule,delayed release (Tecfidera) iron,carbonyl 65 mg-vitamin C 125 1 tab PO QAM 03/01/21 04/07/21 History mg tablet,delayed release (Vitron-C) escitalopram oxalate 10 mg tablet 10 mg PO QAM #90 tab 03/18/21 04/07/21 Rx lisinopril 20 2 tab PO DAILY 04/07/21 04/07/21 History mg-hydrochlorothiazide 12.5 mg tablet Past Med/Surg History Medical History Asthma, mild intermittent inhaler prn Cognitive impairment Coronary artery disease "minimal disease per cath [facility] 12/06/08" 05/31/2019-STEMI s/p SAULO to LAD and PTCA to first diagonal Depression Diabetic neuropathy DM type 2 (diabetes mellitus, type 2) Dyslipidemia History of esophageal dilatation HTN (hypertension) Morbid obesity with BMI of 40.0-44.9, adult Multiple sclerosis DAVE (obstructive sleep apnea) cpap Osteoarthritis ST elevation PR (STEMI) (~05/31/19) follows with Dr. Shabazz Ventricular fibrillation during cardiac cath Vitamin D deficiency Surgical History H/O arthroscopic knee surgery right History of esophagogastroduodenoscopy (EGD) History of tooth extraction Hx of vasectomy S/P cardiac cath x2--last 2011 @ [facility] with 1 stent placed "2008- minimal luminal irregularities LAD without obstructive disease" Family History Mother Hypertension Other No family history of adverse response to anesthesia Social History Smoking Status: Never smoker Second Hand Exposure: No; Hx Alcohol Use: No Hx Substance Use: No Preferred Language: Turkmen Communication Ability: Effective Visual Impairment: No Limitations Hearing Ability: Normal 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 Beliefs That Will Affect Care: None Current Living Situation: Alone Other Information That Helps Us Care for You: No Feels Safe at Home: Yes Safety Concerns: Feels Safe At This Time Assistive Devices: CPAP Review of Systems Review of Systems: ROS per HPI, all other systems reviewed and negative Physical Exam Constitutional: WD/WN, vitals as above + obese Eyes: PERRL, conjunctivae normal, anicteric sclerae ENMT: external ear and nose normal, oropharynx normal Respiratory: normal respiratory effort, lungs clear to auscultation Cardiovascular: Rate/Rhythm: regular rate and regular rhythm Vessels: normal peripheral pulses Extremities: no edema Gastrointestinal (Abdomen): normal bowel sounds, soft, nontender, no hepatosplenomegaly Musculoskeletal: no cyanosis or clubbing, extremities motor strength 5/5 Skin: no rashes, warm and dry Neurologic: PERRL, EOMI, accommodation nl, no face palsy, no dysarthria Psychiatric: A+Ox3, euthymic affect Results & Data Results & Data ([facility]) Vital Signs (Past 12 Hours) Vital Signs Temp Pulse Resp BP Pulse Ox 04/07/21 10:44 96 04/07/21 10:30 63 29 H 152/72 H 96 04/07/21 10:00 63 22 144/79 H 97 04/07/21 09:50 63 16 98 04/07/21 09:41 36.6 C 65 18 133/71 96 Laboratory Results Short CBC 04/07/21 Range/Units 09:55 WBC 3.76 L (4.8-10.8) K/uL Hgb 14.5 (14.0-18.0) g/dL Hct 44.0 (42-52) % Plt Count 159 (130-400) K/uL BMP 04/07/21 09:55 Sodium 141 Potassium 3.7 Chloride 107 Carbon Dioxide 27 BUN 20 H Creatinine 1.11 Glucose 89 Calcium 9.8 Cardiac Enzymes 04/07/21 Range/Units 09:55 Troponin I < 0.015 (0-0.045) ng/ml Liver Function 04/07/21 Range/Units 09:55 Total Bilirubin 1.1 H (0.2-1) mg/dl AST 33 (15-37) U/L ALT 36 (12-78) U/L Alkaline Phosphatase 55 (45-117) U/L Albumin 4.0 (3.4-5.0) gm/dl Diagnostic Findings Chest X-Ray 04/07/21 09:57 XR chest 1V portable HISTORY: 50 years-old Male Chest Pain . Acute atypical chest pain COMPARISON: Chest radiograph 04/29/2020 TECHNIQUE: Portable AP view of the chest FINDINGS: Cardiomediastinal and hilar silhouettes are within normal limits. There is no pneumothorax, pleural effusion, airspace consolidation or overt pulmonary edema. Spondylitic spurring of the spine. No acute fracture. IMPRESSION: No acute process. ACT 112: Negative or not required by law. The above report was generated using voice recognition software. It may contain grammatical, syntax or spelling errors. Electronically signed by: Jeremy Tyler M.D. 04/07/2021 10:30 AM Code Status & VTE Plan Code Status Patient is a full code as per my discussion with him. VTE Prophylaxis Plan VTE Prophylaxis will be ordered: Yes Supervising Physician Co-Signing Physician Notes Patient seen and examined by me, care coordinated with HARDY Hart, please refer to her note above for full detail. 50-year-old male w/ DM type II, CAD with history of STEMI 05/2019 s/p PCI to LAD, MS, DAVE on CPAP who presents w/chest pain relieved by nitro. Patient reports developing indigestion last evening. Then while at work today he developed an epigastric/midsternal chest pain/ sharp. In the ED, initial troponin is negative and EKG does not show any acute ST changes. Patient is lying in bed, in no acute distress, resting. Currently denies any chest pain, shortness of breath dizziness palpitations, overall feels comfortable. Heart sounds regular. Lung sounds clear to auscultation bilaterally, however somewhat decreased. Patient is obese, however awake alert oriented answering questions appropriately. Abdomen soft nontender, positive bowel sounds, obese. No lower extremity edema noted. Skin is warm and well- perfused. Continue to monitor on telemetry, repeat troponin, EKG in the morning, echo, further discuss with cardiology. Xochitl Oscar MD
--- NOTE | 2021-04-07 13:32 | Cardiology Consultation ---
Date of Consultation April 07, 2021 Assessment & Plan (1) Chest pain: (2) DM type 2 (diabetes mellitus, type 2): (3) Coronary artery disease: (4) S/P cardiac cath: The patient will have additional cardiac markers and be admitted to observation overnight. He will have a repeat EKG in the morning. We will have further recommendations at that time. History of Present Illness History of Present Illness This is a 50-year-old male patient with the history as outlined below. In 2018 a STEMI and was taken emergently to the cardiac catheterization lab where he received a coronary stent. During that procedure he did have a V. fib arrest. He has done well for several years and then today he noticed some chest heaviness and discomfort with associated shortness of breath especially when he walked. 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 After receiving sublingual nitroglycerin and Nitropaste his discomfort has completely resolved and he feels better. His initial cardiac markers are negative and his EKG shows no acute changes. PAST MEDICAL HISTORY: 1. Coronary artery disease status post LAD ST segment elevation NV status post successful PCI May 2019 2. VFib arrest during catheterization due to distal artery catheter occlusion 3. History of MS 4. Hypertension 5. Diabetes 6. Dyslipidemia 7. Mild ischemic cardiomyopathy with apical hypokinesis on discharge.Resolved June 2019 Allergies Allergy/AdvReac Type Severity Reaction Status Date / Time No Known Allergies Allergy NKA Verified 03/18/21 08:53 Home Medications Medication Instructions Recorded Confirmed Type albuterol sulfate 90 mcg/actuation 2 puff INHALATION QID PRN 10/05/18 04/07/21 History aerosol inhaler (ProAir HFA) cholecalciferol (vitamin D3) 25 1,000 unit PO QAM 10/05/18 04/07/21 History mcg (1,000 unit) tablet (Vitamin D3) fluticasone propionate 50 2 spray INTRANASAL DAILY PRN 10/05/18 04/07/21 History mcg/actuation nasal spray,suspension (Flonase Allergy Relief) gabapentin 300 mg capsule 600 mg PO TID 10/05/18 04/07/21 History magnesium oxide 400 mg PO QAM 10/05/18 04/07/21 History montelukast 10 mg tablet 10 mg PO PM PRN 10/05/18 04/07/21 History tramadol 50 mg tablet 50 mg PO Q6H PRN 10/05/18 04/07/21 History nitroglycerin 0.4 mg sublingual 0.4 mg SUBLINGUAL UD PRN #14 tab 06/03/19 04/07/21 Rx tablet aspirin 81 mg tablet,delayed 81 mg PO QAM 04/29/20 04/07/21 History release rosuvastatin 40 mg tablet 40 mg PO QAM 09/08/20 04/07/21 History dimethyl fumarate 240 mg 240 mg PO BID 30 Days #60 cap 09/29/20 04/07/21 Rx capsule,delayed release (Tecfidera) iron,carbonyl 65 mg-vitamin C 125 1 tab PO QAM 03/01/21 04/07/21 History mg tablet,delayed release (Vitron-C) escitalopram oxalate 10 mg tablet 10 mg PO QAM #90 tab 03/18/21 04/07/21 Rx lisinopril 20 2 tab PO DAILY 04/07/21 04/07/21 History mg-hydrochlorothiazide 12.5 mg tablet Patient History Medical History Asthma, mild intermittent inhaler prn Cognitive impairment Coronary artery disease "minimal disease per cath [facility] 12/06/08" 05/31/2019-STEMI s/p SAULO to LAD and PTCA to first diagonal Depression Diabetic neuropathy DM type 2 (diabetes mellitus, type 2) Dyslipidemia History of esophageal dilatation HTN (hypertension) Morbid obesity with BMI of 40.0-44.9, adult Multiple sclerosis DAVE (obstructive sleep apnea) cpap Osteoarthritis ST elevation NV (STEMI) (~05/31/19) follows with Dr. Shabazz Ventricular fibrillation during cardiac cath Vitamin D deficiency Surgical History H/O arthroscopic knee surgery right History of esophagogastroduodenoscopy (EGD) History of tooth extraction Hx of vasectomy S/P cardiac cath x2--last 2011 @ [facility] with 1 stent placed "2008- minimal luminal irregularities LAD without obstructive disease" Family History Mother Hypertension Other No family history of adverse response to anesthesia Social History Smoking Status: Never smoker Second Hand Exposure: No; Hx Alcohol Use: No Hx Substance Use: No Preferred Language: Lithuanian Communication Ability: Effective Visual Impairment: No Limitations Hearing Ability: Normal Director Of Promotions Required: No Beliefs That Will Affect Care: None Current Living Situation: Alone Other Information That Helps Us Care for You: No Feels Safe at Home: Yes Safety Concerns: Feels Safe At This Time Assistive Devices: None Review of Systems Review of Systems: Review of Systems: See HPI for pertinent positives. All other 10 point review of systems are negative. Physical Exam Physical Exam: General: no acute distress and stated age Head: normocephalic, no masses, lesions, tenderness or abnormalities Eyes: conjunctiva are pink and non-injected, sclera clear Neck: supple, no adenopathy, no bruits, normal jugular venous pulse, no hepatojugular reflux Chest: normal shape and normal respiratory effort Lungs: clear to auscultation and percussion Cardiac Exam: - regular rate & rhythm, no murmurs gallops or rubs - normal S1, normal S2 Pulses: 2(+) throughout Abdomen: abdomen soft, non-tender, no abnormal masses and no hepatosplenomegaly Musculoskeletal: no gait disturbance, no joint inflammation, no deforming arthritis Extremities: no edema and no cyanosis Neuro: grossly normal exam Results & Data ([facility]) Vital Signs (Past 12 Hours) Vital Signs Temp Pulse Resp BP Pulse Ox 04/07/21 13:17 54 L 16 183/91 H 99 04/07/21 13:00 57 L 20 98 04/07/21 12:30 52 L 20 97 04/07/21 12:00 56 L 20 161/83 H 98 04/07/21 11:30 62 20 97 04/07/21 11:00 55 L 20 148/68 H 97 04/07/21 10:44 96 04/07/21 10:30 63 29 H 152/72 H 96 04/07/21 10:00 63 22 144/79 H 97 04/07/21 09:50 63 16 98 04/07/21 09:41 36.6 C 65 18 133/71 96 Laboratory Results Laboratory Results - last 24 hr 04/07/21 04/07/21 04/07/21 09:55 09:55 09:55 WBC 3.76 L RBC 5.40 Hgb 14.5 Hct 44.0 MCV 81.5 MCH 26.9 MCHC 33.0 RDW Std Deviation 45.7 RDW Coeff of Shakira 15.2 H Plt Count 159 MPV 11.4 H Immature Gran % (Auto) 0.3 Neut % (Auto) 66.7 Lymph % (Auto) 21.3 [place] % (Auto) 10.6 Eos % (Auto) 0.8 Baso % (Auto) 0.3 Neut # (Auto) 2.51 Lymph # (Auto) 0.80 L [place] # (Auto) 0.40 Eos # (Auto) 0.03 Baso # (Auto) 0.01 Immature Gran # (Auto) 0.01 PT 10.4 INR 1.0 APTT 25.1 PTT Ratio 1.0 Sodium 141 Potassium 3.7 Chloride 107 Carbon Dioxide 27 Anion Gap 7.0 BUN 20 H Creatinine 1.11 Est Cr Clr Drug Dosing 121.2 Est GFR ( Amer) 89.3 Est GFR (Non-Af Amer) 77.0 BUN/Creatinine Ratio 18.4 Glucose 89 Calcium 9.8 Total Bilirubin 1.1 H AST 33 ALT 36 Alkaline Phosphatase 55 Troponin I < 0.015 Total Protein 7.5 Albumin 4.0 Globulin 3.5 Albumin/Globulin Ratio 1.1 Lipase 399 H COVID-19 Eval Order SARS-CoV-2 (PCR) 04/07/21 04/07/21 11:25 11:25 WBC RBC Hgb Hct MCV MCH MCHC RDW Std Deviation RDW Coeff of Shakira Plt Count MPV Immature Gran % (Auto) Neut % (Auto) Lymph % (Auto) [place] % (Auto) Eos % (Auto) Baso % (Auto) Neut # (Auto) Lymph # (Auto) [place] # (Auto) Eos # (Auto) Baso # (Auto) Immature Gran # (Auto) PT INR APTT PTT Ratio Sodium Potassium Chloride Carbon Dioxide Anion Gap BUN Creatinine Est Cr Clr Drug Dosing Est GFR ( Amer) Est GFR (Non-Af Amer) BUN/Creatinine Ratio Glucose Calcium Total Bilirubin AST ALT Alkaline Phosphatase Troponin I Total Protein Albumin Globulin Albumin/Globulin Ratio Lipase COVID-19 Eval Order Covid19 at [facility] SARS-CoV-2 (PCR) NEGATIVE Medications Administered Current Inpatient Medications Nitroglycerin (Nitroglycerin Sl 0.4 Mg/Tab Tab) 0.4 mg SL UD PRN PRN Reason: Chest Pain Stop: 11/26/21 10:04 Last Admin: 04/07/21 10:29 Dose: 0.4 mg Documented by: (1) Chest pain Chest pain type: unspecified Qualified Code(s): R07.9 - Chest pain, unspecified (2) DM type 2 (diabetes mellitus, type 2) Diabetes mellitus complication status: without complication Diabetes mellitus watermaster insulin use: unspecified watermaster insulin use status Qualified Code(s): E11.9 - Type 2 diabetes mellitus without complications
[2021-04-07] MEDS ORDERED: DEXTROSE 50% 50 ML SYRINGE IV PRN (13:57)
[2021-04-07] MEDS ORDERED: ACETAMINOPHEN 325 MG TAB PO PRN (13:57)
[2021-04-07] MEDS ORDERED: NITROGLYCERIN SL 0.4 MG/TAB TAB SL PRN (13:57)
[2021-04-07] MEDS ORDERED: GLUCOSE 40% GEL 15 GM TUBE PO PRN (13:57)
[2021-04-07] MEDS ORDERED: traMADol HCL 50 MG TABLET PO PRN (13:57)
[2021-04-07] MEDS ORDERED: CARBOHYDRATES FOR HYPOGLYCEMIA PO PRN (13:57)
[2021-04-07] MEDS ORDERED: GLUCOSE 10 TABS/TUBE PO PRN (13:57)
[2021-04-07] MEDS ORDERED: GLUCAGON FOR INJ 1 MG VIAL SQ PRN (13:57)
[2021-04-07] MEDS ORDERED: Nursing to Pharmacy Communication SCH (16:30)
[2021-04-07] MEDS: INSULIN ASPART 100 UNITS/ML 3 ML PEN SC SCH ×2 (16:48→20:23)
[2021-04-07] MEDS: ENOXAPARIN INJ 40 MG/0.4 ML SYR SQ SCH (16:53)
[2021-04-07] MEDS ORDERED: INSULIN ASPART 100 UNITS/ML 3 ML PEN SC SCH (18:00)
[2021-04-07] MEDS: DIMETHYL FUMARATE PO SCH (20:25)
[2021-04-07] MEDS: GABAPENTIN 600 MG TAB PO SCH (20:25)
--- NOTE | 2021-04-08 06:03 | Electrocardiogram Report ---
Test Reason : Blood Pressure : / mmHG Vent. Rate : 060 BPM Atrial Rate : 060 BPM P-R Int : 190 ms QRS Dur : 106 ms QT Int : 386 ms P-R-T Axes : 013 -34 007 degrees QTc Int : 386 ms Normal sinus rhythm Left axis deviation Minimal voltage criteria for LVH, may be normal variant Abnormal ECG When compared with ECG of 29-APR-2020 08:51, No significant change was found Confirmed by Sonu Owen ([id number]) on 04/08/2021 6:03:17 AM Referred By: REFERRED SELF Confirmed By:Sonu Owen
[2021-04-08 06:07] LABS: Hematocrit (blood only) 42.2 % (42-52); Hemoglobin 13.4 g/dL (14.0-18.0); Mean Corpuscular Hemoglobin 26.6 pg (25-34); Mean Corpuscular Hgb Conc 31.8 g/dL (32-36); Mean Corpuscular Volume 83.7 fL (80-100); Mean Platelet Volume 11.4 fL (7.4-10.4); Platelet Count 142 K/uL (130-400); RDW Coefficient of Variation 15.2 % (11.5-14.5); RDW Standard Deviation 46.6 fL (36.4-46.3); Red Blood Count 5.04 M/uL (4.7-6.1); White Blood Count 3.08 K/uL (4.8-10.8)
[2021-04-08 06:38] LABS: BUN Creatinine Ratio 19.4 (10-20); Calcium 8.6 mg/dl (8.5-10.1); Creatinine Clr Calc Pharmacy 114.3 ml/min; Est GFR (African American) 83.8 ml/min; Est GFR (Non-African American) 72.3 ml/min; Magnesium 2.4 mg/dl (1.8-2.4); Phosphorus 3.3 mg/dl (2.5-4.9); Potassium 3.9 mmol/L (3.5-5.1)
[2021-04-08] MEDS: INSULIN ASPART 100 UNITS/ML 3 ML PEN SC SCH ×3 (08:23→12:15)
[2021-04-08] MEDS: ENOXAPARIN INJ 40 MG/0.4 ML SYR SQ SCH (08:24)
[2021-04-08] MEDS: GABAPENTIN 600 MG TAB PO SCH ×2 (08:25→13:54)
[2021-04-08] MEDS: DIMETHYL FUMARATE PO SCH (08:26)
[2021-04-08] MEDS ORDERED: ROSUVASTATIN CALCIUM 20 MG TAB PO SCH (09:00)
[2021-04-08] MEDS ORDERED: ASPIRIN 81 MG ECTAB PO SCH (09:00)
[2021-04-08] MEDS ORDERED: ESCITALOPRAM OXALATE 10 MG TAB PO SCH (09:00)
[2021-04-08] MEDS ORDERED: LISINOPRIL/HCTZ 20/12.5MG 1 TAB TAB PO SCH (09:00)
--- NOTE | 2021-04-08 09:05 | Hospitalist Progress Note ---
Date of Service April 08, 2021 Assessment & Plan (1) Chest pain: (2) Coronary artery disease: Plan: -Admitted to telemetry -Patient presenting from home with reports of epigastric/chest pain with associated shortness of breath and diaphoresis. History of CAD with STEMI 05/2019, s/p PCI to LAD. -In the ED, patient received 2 sublingual nitroglycerin with complete resolution of symptoms. Initial troponin negative, EKG without acute ST changes. -Given epigastric component, GI may be a source of patient's discomfort however given cardiac risk factors, will evaluate for ACS. -Troponin x3 - negative - Echo - no significant valvular pathology. LV is normal in size. There is mild concentric LVH. EF 60 to 65%. LV wall motion is normal. RV systolic function is normal. LA size is normal. RA size is normal. Dobutamine stress echo - negative for ischemia -Continue ASA, statin. Beta-wali contraindicated due to patient's chronic resting bradycardia. -Cardiology consulted, case discussed with Dr. Jeff (3) HTN (hypertension): Plan: -BP controlled, continue lisinopril/HCTZ (4) DM type 2 (diabetes mellitus, type 2): Plan: -Hgb A1c 6.1 01/2021 -Patient reports is currently diet controlled -NovoLog per protocol while hospitalized (5) DAVE (obstructive sleep apnea): Plan: -CPAP as per home settings (6) DVT prophylaxis: Admission and Anticipated Discharge Date Admission Date: April 07, 2021 Subjective Patient seen in follow-up of chest pain Underwent echo/stress echo today, which was unremarkable Overnight patient had no more chest pain, shortness of breath, palpitations or dizziness Continues to feel well, no complaints Review of Systems Review of Systems: All systems reviewed & are unremarkable except as noted in Subjective Physical Exam Physical Exam: Constitutional:L + obese male in N AD Eyes: PERRL, EOMI, conju nctivae normal, an icteric sclerae ENMT: external ear and n ose normal, oropha rynx normal Respiratory: normal respiratory effort, lungs theodora ar to auscultation Cardiovascular:L Rate/Rhythm: regul ar rate and regula r rhythm Vessels: normal peripheral pulses Extremiti es: no edema Gastrointestinal ( Abdomen): normal bowel sound s, soft, nontender , obese Musculoskeletal: extremities motor strength 5/5 Skin: no rashes, warm an d dry Neurologic: PERRL, EOMI,no fac e palsy, no dysart hria Psychiatric: A+Ox3, euthymic af fect Results & Data Results & Data ([facility]) Vital Signs (Past 12 Hours) Vital Signs Temp Pulse Pulse Resp BP BP Pulse Ox 04/08/21 07:21 36.5 C 58 L 19 126/72 94 04/08/21 03:50 70 18 96 04/08/21 03:20 36.4 C L 76 22 144/85 H 97 04/07/21 23:43 36.3 C L 61 18 125/77 95 04/07/21 22:19 52 L Laboratory Results 04/08/21 04/08/21 04/08/21 Range/Units 06:58 05:54 05:54 WBC 3.08 L (4.8-10.8) K/uL RBC 5.04 (4.7-6.1) M/uL Hgb 13.4 L (14.0-18.0) g/dL Hct 42.2 (42-52) % MCV 83.7 (80-100) fL MCH 26.6 (25-34) pg MCHC 31.8 L (32-36) g/dL RDW Std Deviation 46.6 H (36.4-46.3) fL RDW Coeff of Shakira 15.2 H (11.5-14.5) % Plt Count 142 (130-400) K/uL MPV 11.4 H (7.4-10.4) fL Immature Gran % (Auto) % Neut % (Auto) % Lymph % (Auto) % [place] % (Auto) % Eos % (Auto) % Baso % (Auto) % Neut # (Auto) (1.4-6.5) K/uL Lymph # (Auto) (1.2-3.4) K/uL [place] # (Auto) (0.11-0.59) K/uL Eos # (Auto) (0-0.5) K/uL Baso # (Auto) (0-0.2) K/uL Immature Gran # (Auto) (0.00-0.02) K/uL PT (9.0-12.0) Seconds INR (0.9-1.1) APTT (21.0-31.0) Seconds PTT Ratio Sodium 140 (136-145) mmol/L Potassium 3.9 (3.5-5.1) mmol/L Chloride 107 (98-107) mmol/L Carbon Dioxide 29 (21-32) mmol/L Anion Gap 4.0 (3-11) BUN 23 H (7-18) mg/dl Creatinine 1.17 (0.6-1.4) mg/dl Est Cr Clr Drug Dosing 114.3 ml/min Est GFR ( Amer) 83.8 ml/min Est GFR (Non-Af Amer) 72.3 ml/min BUN/Creatinine Ratio 19.4 (10-20) Glucose 86 (70-99) mg/dl POC Glucose 80 (70-99) mg/dl Calcium 8.6 (8.5-10.1) mg/dl Phosphorus 3.3 (2.5-4.9) mg/dl Magnesium 2.4 (1.8-2.4) mg/dl Total Bilirubin (0.2-1) mg/dl AST (15-37) U/L ALT (12-78) U/L Alkaline Phosphatase (45-117) U/L Troponin I (0-0.045) ng/ml Total Protein (6.4-8.2) gm/dl Albumin (3.4-5.0) gm/dl Globulin (2.5-4.0) gm/dl Albumin/Globulin Ratio (0.9-2) Lipase (73-393) U/L COVID-19 Eval Order SARS-CoV-2 (PCR) (Negative) 04/07/21 04/07/21 04/07/21 Range/Units 22:24 20:17 16:10 WBC (4.8-10.8) K/uL RBC (4.7-6.1) M/uL Hgb (14.0-18.0) g/dL Hct (42-52) % MCV (80-100) fL MCH (25-34) pg MCHC (32-36) g/dL RDW Std Deviation (36.4-46.3) fL RDW Coeff of Shakira (11.5-14.5) % Plt Count (130-400) K/uL MPV (7.4-10.4) fL Immature Gran % (Auto) % Neut % (Auto) % Lymph % (Auto) % [place] % (Auto) % Eos % (Auto) % Baso % (Auto) % Neut # (Auto) (1.4-6.5) K/uL Lymph # (Auto) (1.2-3.4) K/uL [place] # (Auto) (0.11-0.59) K/uL Eos # (Auto) (0-0.5) K/uL Baso # (Auto) (0-0.2) K/uL Immature Gran # (Auto) (0.00-0.02) K/uL PT (9.0-12.0) Seconds INR (0.9-1.1) APTT (21.0-31.0) Seconds PTT Ratio Sodium (136-145) mmol/L Potassium (3.5-5.1) mmol/L Chloride (98-107) mmol/L Carbon Dioxide (21-32) mmol/L Anion Gap (3-11) BUN (7-18) mg/dl Creatinine (0.6-1.4) mg/dl Est Cr Clr Drug Dosing ml/min Est GFR ( Amer) ml/min Est GFR (Non-Af Amer) ml/min BUN/Creatinine Ratio (10-20) Glucose (70-99) mg/dl POC Glucose 103 H 76 (70-99) mg/dl Calcium (8.5-10.1) mg/dl Phosphorus (2.5-4.9) mg/dl Magnesium (1.8-2.4) mg/dl Total Bilirubin (0.2-1) mg/dl AST (15-37) U/L ALT (12-78) U/L Alkaline Phosphatase (45-117) U/L Troponin I < 0.015 (0-0.045) ng/ml Total Protein (6.4-8.2) gm/dl Albumin (3.4-5.0) gm/dl Globulin (2.5-4.0) gm/dl Albumin/Globulin Ratio (0.9-2) Lipase (73-393) U/L COVID-19 Eval Order SARS-CoV-2 (PCR) (Negative) 04/07/21 04/07/21 04/07/21 Range/Units 15:49 11:25 11:25 WBC (4.8-10.8) K/uL RBC (4.7-6.1) M/uL Hgb (14.0-18.0) g/dL Hct (42-52) % MCV (80-100) fL MCH (25-34) pg MCHC (32-36) g/dL RDW Std Deviation (36.4-46.3) fL RDW Coeff of Shakira (11.5-14.5) % Plt Count (130-400) K/uL MPV (7.4-10.4) fL Immature Gran % (Auto) % Neut % (Auto) % Lymph % (Auto) % [place] % (Auto) % Eos % (Auto) % Baso % (Auto) % Neut # (Auto) (1.4-6.5) K/uL Lymph # (Auto) (1.2-3.4) K/uL [place] # (Auto) (0.11-0.59) K/uL Eos # (Auto) (0-0.5) K/uL Baso # (Auto) (0-0.2) K/uL Immature Gran # (Auto) (0.00-0.02) K/uL PT (9.0-12.0) Seconds INR (0.9-1.1) APTT (21.0-31.0) Seconds PTT Ratio Sodium (136-145) mmol/L Potassium (3.5-5.1) mmol/L Chloride (98-107) mmol/L Carbon Dioxide (21-32) mmol/L Anion Gap (3-11) BUN (7-18) mg/dl Creatinine (0.6-1.4) mg/dl Est Cr Clr Drug Dosing ml/min Est GFR ( Amer) ml/min Est GFR (Non-Af Amer) ml/min BUN/Creatinine Ratio (10-20) Glucose (70-99) mg/dl POC Glucose (70-99) mg/dl Calcium (8.5-10.1) mg/dl Phosphorus (2.5-4.9) mg/dl Magnesium (1.8-2.4) mg/dl Total Bilirubin (0.2-1) mg/dl AST (15-37) U/L ALT (12-78) U/L Alkaline Phosphatase (45-117) U/L Troponin I < 0.015 (0-0.045) ng/ml Total Protein (6.4-8.2) gm/dl Albumin (3.4-5.0) gm/dl Globulin (2.5-4.0) gm/dl Albumin/Globulin Ratio (0.9-2) Lipase (73-393) U/L COVID-19 Eval Order Covid19 at [facility] SARS-CoV-2 (PCR) NEGATIVE (Negative) 04/07/21 04/07/21 04/07/21 Range/Units 09:55 09:55 09:55 WBC 3.76 L (4.8-10.8) K/uL RBC 5.40 (4.7-6.1) M/uL Hgb 14.5 (14.0-18.0) g/dL Hct 44.0 (42-52) % MCV 81.5 (80-100) fL MCH 26.9 (25-34) pg MCHC 33.0 (32-36) g/dL RDW Std Deviation 45.7 (36.4-46.3) fL RDW Coeff of Shakira 15.2 H (11.5-14.5) % Plt Count 159 (130-400) K/uL MPV 11.4 H (7.4-10.4) fL Immature Gran % (Auto) 0.3 % Neut % (Auto) 66.7 % Lymph % (Auto) 21.3 % [place] % (Auto) 10.6 % Eos % (Auto) 0.8 % Baso % (Auto) 0.3 % Neut # (Auto) 2.51 (1.4-6.5) K/uL Lymph # (Auto) 0.80 L (1.2-3.4) K/uL [place] # (Auto) 0.40 (0.11-0.59) K/uL Eos # (Auto) 0.03 (0-0.5) K/uL Baso # (Auto) 0.01 (0-0.2) K/uL Immature Gran # (Auto) 0.01 (0.00-0.02) K/uL PT 10.4 (9.0-12.0) Seconds INR 1.0 (0.9-1.1) APTT 25.1 (21.0-31.0) Seconds PTT Ratio 1.0 Sodium 141 (136-145) mmol/L Potassium 3.7 (3.5-5.1) mmol/L Chloride 107 (98-107) mmol/L Carbon Dioxide 27 (21-32) mmol/L Anion Gap 7.0 (3-11) BUN 20 H (7-18) mg/dl Creatinine 1.11 (0.6-1.4) mg/dl Est Cr Clr Drug Dosing 121.2 ml/min Est GFR ( Amer) 89.3 ml/min Est GFR (Non-Af Amer) 77.0 ml/min BUN/Creatinine Ratio 18.4 (10-20) Glucose 89 (70-99) mg/dl POC Glucose (70-99) mg/dl Calcium 9.8 (8.5-10.1) mg/dl Phosphorus (2.5-4.9) mg/dl Magnesium (1.8-2.4) mg/dl Total Bilirubin 1.1 H (0.2-1) mg/dl AST 33 (15-37) U/L ALT 36 (12-78) U/L Alkaline Phosphatase 55 (45-117) U/L Troponin I < 0.015 (0-0.045) ng/ml Total Protein 7.5 (6.4-8.2) gm/dl Albumin 4.0 (3.4-5.0) gm/dl Globulin 3.5 (2.5-4.0) gm/dl Albumin/Globulin Ratio 1.1 (0.9-2) Lipase 399 H (73-393) U/L COVID-19 Eval Order SARS-CoV-2 (PCR) (Negative) Medications Administered Current Inpatient Medications Acetaminophen (Acetaminophen 325 Mg Tab) 650 mg PO Q4H PRN PRN Reason: Pain or Fever Stop: 05/07/21 13:56 Aspirin (Aspirin 81 Mg Ectab) 81 mg PO QAM RODRIGUEZ Stop: 05/08/21 08:59 Last Admin: 04/08/21 08:24 Dose: 81 mg Documented by: Dextrose (Dextrose 50% 50 Ml Syringe) 25 - 50 ml IV UD PRN; Protocol PRN Reason: Hypoglycemia Protocol Stop: 05/07/21 13:56 Enoxaparin Sodium (Enoxaparin Inj 40 Mg/0.4 Ml Syr) 40 mg SQ BID RODRIGUEZ Stop: 05/07/21 17:59 Last Admin: 04/08/21 08:24 Dose: 40 mg Documented by: Escitalopram Oxalate (Escitalopram Oxalate 10 Mg Tab) 10 mg PO QAM RODRIGUEZ Stop: 05/08/21 08:59 Last Admin: 04/08/21 08:24 Dose: 10 mg Documented by: Gabapentin (Gabapentin 600 Mg Tab) 600 mg PO TID RODRIGUEZ Stop: 05/07/21 20:59 Last Admin: 04/08/21 08:25 Dose: 600 mg Documented by: Glucagon (Glucagon For Inj 1 Mg Vial) 1 mg SQ UD PRN; Protocol PRN Reason: Hypoglycemia Protocol Stop: 05/07/21 13:56 Glucose (Glucose 10 Tabs/Tube) 4 - 8 tabs PO UD PRN; Protocol PRN Reason: Hypoglycemia Protocol Stop: 05/07/21 13:56 Glucose (Glucose 40% Gel 15 Gm Tube) 15 - 30 gm PO UD PRN; Protocol PRN Reason: Hypoglycemia Protocol Stop: 05/07/21 13:56 Lisinopril/HCTZ (Lisinopril/Hctz 20/12.5mg 1 Tab Tab) 2 tab PO DAILY RODRIGUEZ Stop: 05/08/21 08:59 Last Admin: 04/08/21 08:25 Dose: 2 tab Documented by: Insulin Aspart (Insulin Aspart 100 Units/Ml 3 Ml Pen) 0 units SC ACHS RODRIGUEZ Stop: 05/07/21 16:29 Last Admin: 04/08/21 08:47 Dose: Not Given Documented by: Miscellaneous (Carbohydrates For Hypoglycemia ) 15 - 30 gm PO UD PRN PRN Reason: Hypoglycemia Protocol Stop: 05/07/21 13:56 Nitroglycerin (Nitroglycerin Sl 0.4 Mg/Tab Tab) 0.4 mg SL UD PRN PRN Reason: Chest Pain Stop: 05/07/21 13:56 *Dimethyl Fumarate* Non-Formulary Patient's Own Med 1 ea PO BID RODRIGUEZ Stop: 05/07/21 20:59 Last Admin: 04/08/21 08:26 Dose: 1 mg Documented by: Rosuvastatin Calcium (Rosuvastatin Calcium 20 Mg Tab) 40 mg PO QAM RODRIGUEZ Stop: 05/08/21 08:59 Last Admin: 04/08/21 08:25 Dose: 40 mg Documented by: Tramadol HCl (Tramadol Hcl 50 Mg Tablet) 50 mg PO Q6H PRN PRN Reason: Pain Stop: 05/07/21 13:56 (1) DM type 2 (diabetes mellitus, type 2) Diabetes mellitus complication status: without complication Diabetes mellitus prison insulin use: 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
[2021-04-08] MEDS ORDERED: METOPROLOL TARTRATE 1 MG/ML VIAL IV ONE (10:14)
[2021-04-08] MEDS: ATROPINE SULFATE 0.1 MG/ML 10ML SYR IV ONE ×2 (11:58→16:08)
[2021-04-08] MEDS: DOBUTamine HCL 12.5 MG/ML 20 ML VIAL IV ONE ×2 (11:59→16:09)
--- NOTE | 2021-04-08 13:16 | Cardiology Progress Note ---
Date of Service April 08, 2021 Assessment & Plan (1) Chest pain: (2) DM type 2 (diabetes mellitus, type 2): (3) Coronary artery disease: (4) S/P cardiac cath: Plan: The patient had no additional chest pain and his cardiac markers were negative this morning. Resting echocardiogram showed no new wall motion abnormalities. The patient therefore, underwent a dobutamine stress echocardiogram that was negative for ischemia. I reviewed the results with the patient. I think he can be discharged home with outpatient follow-up. Admission and Anticipated Discharge Date Admission Date: April 07, 2021 Subjective The patient seen after his stress test and I reviewed the results. It was a negative study. Review of Systems Review of Systems: Review of Systems: See HPI for pertinent positives. All other 10 point review of systems are negative. Physical Exam Physical Exam: General: no acute distress and stated age Head: normocephalic, no masses, lesions, tenderness or abnormalities Eyes: conjunctiva are pink and non-injected, sclera clear Neck: supple, no adenopathy, no bruits, normal jugular venous pulse, no hepatojugular reflux Chest: normal shape and normal respiratory effort Lungs: clear to auscultation and percussion Cardiac Exam: - regular rate & rhythm, no murmurs gallops or rubs - normal S1, normal S2 Pulses: 2(+) throughout Abdomen: abdomen soft, non-tender, no abnormal masses and no hepatosplenomegaly Musculoskeletal: no gait disturbance, no joint inflammation, no deforming arthritis Extremities: no edema and no cyanosis Neuro: grossly normal exam Results & Data ([facility]) Vital Signs (Past 12 Hours) Vital Signs Temp Pulse Pulse Resp BP BP Pulse Ox 04/08/21 07:21 36.5 C 58 L 19 126/72 94 04/08/21 03:50 70 18 96 04/08/21 03:20 36.4 C L 76 22 144/85 H 97 Laboratory Results Laboratory Results - last 24 hr 04/07/21 04/07/21 04/07/21 15:49 16:10 20:17 WBC RBC Hgb Hct MCV MCH MCHC RDW Std Deviation RDW Coeff of Shakira Plt Count MPV Sodium Potassium Chloride Carbon Dioxide Anion Gap BUN Creatinine Est Cr Clr Drug Dosing Est GFR ( Amer) Est GFR (Non-Af Amer) BUN/Creatinine Ratio Glucose POC Glucose 76 103 H Calcium Phosphorus Magnesium Troponin I < 0.015 04/07/21 04/08/21 04/08/21 22:24 05:54 05:54 WBC 3.08 L RBC 5.04 Hgb 13.4 L Hct 42.2 MCV 83.7 MCH 26.6 MCHC 31.8 L RDW Std Deviation 46.6 H RDW Coeff of Shakira 15.2 H Plt Count 142 MPV 11.4 H Sodium 140 Potassium 3.9 Chloride 107 Carbon Dioxide 29 Anion Gap 4.0 BUN 23 H Creatinine 1.17 Est Cr Clr Drug Dosing 114.3 Est GFR ( Amer) 83.8 Est GFR (Non-Af Amer) 72.3 BUN/Creatinine Ratio 19.4 Glucose 86 POC Glucose Calcium 8.6 Phosphorus 3.3 Magnesium 2.4 Troponin I < 0.015 04/08/21 04/08/21 06:58 11:48 WBC RBC Hgb Hct MCV MCH MCHC RDW Std Deviation RDW Coeff of Shakira Plt Count MPV Sodium Potassium Chloride Carbon Dioxide Anion Gap BUN Creatinine Est Cr Clr Drug Dosing Est GFR ( Amer) Est GFR (Non-Af Amer) BUN/Creatinine Ratio Glucose POC Glucose 80 79 Calcium Phosphorus Magnesium Troponin I Medications Administered Current Inpatient Medications Acetaminophen (Acetaminophen 325 Mg Tab) 650 mg PO Q4H PRN PRN Reason: Pain or Fever Stop: 05/07/21 13:56 Aspirin (Aspirin 81 Mg Ectab) 81 mg PO QAM [facility] Stop: 05/08/21 08:59 Last Admin: 04/08/21 08:24 Dose: 81 mg Documented by: Dextrose (Dextrose 50% 50 Ml Syringe) 25 - 50 ml IV UD PRN; Protocol PRN Reason: Hypoglycemia Protocol Stop: 05/07/21 13:56 Enoxaparin Sodium (Enoxaparin Inj 40 Mg/0.4 Ml Syr) 40 mg SQ BID [facility] Stop: 05/07/21 17:59 Last Admin: 04/08/21 08:24 Dose: 40 mg Documented by: Escitalopram Oxalate (Escitalopram Oxalate 10 Mg Tab) 10 mg PO QAM [facility] Stop: 05/08/21 08:59 Last Admin: 04/08/21 08:24 Dose: 10 mg Documented by: Gabapentin (Gabapentin 600 Mg Tab) 600 mg PO TID [facility] Stop: 05/07/21 20:59 Last Admin: 04/08/21 08:25 Dose: 600 mg Documented by: Glucagon (Glucagon For Inj 1 Mg Vial) 1 mg SQ UD PRN; Protocol PRN Reason: Hypoglycemia Protocol Stop: 05/07/21 13:56 Glucose (Glucose 10 Tabs/Tube) 4 - 8 tabs PO UD PRN; Protocol PRN Reason: Hypoglycemia Protocol Stop: 05/07/21 13:56 Glucose (Glucose 40% Gel 15 Gm Tube) 15 - 30 gm PO UD PRN; Protocol PRN Reason: Hypoglycemia Protocol Stop: 05/07/21 13:56 Lisinopril/HCTZ (Lisinopril/Hctz 20/12.5mg 1 Tab Tab) 2 tab PO DAILY [facility] Stop: 05/08/21 08:59 Last Admin: 04/08/21 08:25 Dose: 2 tab Documented by: Insulin Aspart (Insulin Aspart 100 Units/Ml 3 Ml Pen) 0 units SC ACHS [facility]IG[facility] Stop: 05/07/21 16:29 Last Admin: 04/08/21 12:15 Dose: 2 units Documented by: Miscellaneous (Carbohydrates For Hypoglycemia ) 15 - 30 gm PO UD PRN PRN Reason: Hypoglycemia Protocol Stop: 05/07/21 13:56 Nitroglycerin (Nitroglycerin Sl 0.4 Mg/Tab Tab) 0.4 mg SL UD PRN PRN Reason: Chest Pain Stop: 05/07/21 13:56 *Dimethyl Fumarate* Non-Formulary Patient's Own Med 1 ea PO BID [facility]IG[facility] Stop: 05/07/21 20:59 Last Admin: 04/08/21 08:26 Dose: 1 mg Documented by: Rosuvastatin Calcium (Rosuvastatin Calcium 20 Mg Tab) 40 mg PO QAM [facility] Stop: 05/08/21 08:59 Last Admin: 04/08/21 08:25 Dose: 40 mg Documented by: Tramadol HCl (Tramadol Hcl 50 Mg Tablet) 50 mg PO Q6H PRN PRN Reason: Pain Stop: 05/07/21 13:56 (1) Chest pain Chest pain type: unspecified Qualified Code(s): R07.9 - Chest pain, unspecified (2) DM type 2 (diabetes mellitus, type 2) Diabetes mellitus complication status: without complication Diabetes mellitus senior care insulin use: unspecified senior care insulin use status Qualified Code(s): E11.9 - Type 2 diabetes mellitus without complications
--- NOTE | 2021-04-08 14:50 | Discharge Summary ---
Date of Service April 08, 2021 Admission HPI Per Admitting Provider 50-year-old male PMH DM type II, CAD with history of STEMI 05/2019 s/p PCI to LAD, MS, DAVE on CPAP, mild intermittent asthma, and other problems listed below who presents to the ED for evaluation of chest pain. Patient reports developing indigestion after dinner last evening. Reports he took a couple of Tums without much relief. Was able to go to bed and slept throughout the night. This morning, patient reports he woke feeling in his usual state of health. While he was at work, he developed an epigastric/midsternal chest pain. He had associated diaphoresis and shortness of breath. Patient rates the pain at its worst #8/10. Patient then presented to the ED for further evaluation. He received 2 sublingual nitroglycerin with complete resolution of his symptoms. Patient notes being increasingly fatigued over the past 1 month. Denies any other recent illnesses, fevers, chills. No abdominal pain, nausea, vomiting, diarrhea. No urinary symptoms. In the ED, initial troponin is negative and EKG does not show any acute ST changes. Patient is hemodynamically stable. In addition to the sublingual nitroglycerin, patient also received full dose aspirin and IVF. Admission Exam Per Admitting Provider Constitutional: WD/WN, vitals as above + obese Eyes: PERRL, conjunctivae normal, anicteric sclerae ENMT: external ear and nose normal, oropharynx normal Respiratory: normal respiratory effort, lungs clear to auscultation Cardiovascular: Rate/Rhythm: regular rate and regular rhythm Vessels: normal peripheral pulses Extremities: no edema Gastrointestinal (Abdomen): normal bowel sounds, soft, nontender, no hepatosplenomegaly Musculoskeletal: no cyanosis or clubbing, extremities motor strength 5/5 Skin: no rashes, warm and dry Neurologic: PERRL, EOMI, accommodation nl, no face palsy, no dysarthria Psychiatric: A+Ox3, euthymic affect Principal Diagnosis Chest pain Hx of CAD Discharge Exam Constitutional: + obese male in NAD Eyes: PERRL, EOMI, conjunctivae normal, anicteric sclerae ENMT: external ear and nose normal, oropharynx normal Respiratory: normal respiratory effort, lungs clear to auscultation Cardiovascular: Rate/Rhythm: regular rate and regular rhythm Vessels: normal peripheral pulses Extremities: no edema Gastrointestinal (Abdomen): normal bowel sounds, soft, nontender, obese Musculoskeletal: extremities motor strength 5/5 Skin: no rashes, warm and dry Neurologic: PERRL, EOMI,no face palsy, no dysarthria Psychiatric: A+Ox3, euthymic affect Discharge Data Allergies Allergy/AdvReac Type Severity Reaction Status Date / Time No Known Allergies Allergy NKA Verified 03/18/21 08:53 Consultations 04/07/21 11:17 ED Decision to Admit Stat 04/07/21 12:14 Consult Cardiology Routine Hospital Course (1) Chest pain: (2) Coronary artery disease: -Admitted to telemetry -Patient presenting from home with reports of epigastric/chest pain with associated shortness of breath and diaphoresis. History of CAD with STEMI 05/2019, s/p PCI to LAD. -In the ED, patient received 2 sublingual nitroglycerin with complete resolution of symptoms. Initial troponin negative, EKG without acute ST changes. -Given epigastric component, GI may be a source of patient's discomfort however given cardiac risk factors, will evaluate for ACS. -Troponin x3 - negative - Echo - no significant valvular pathology. LV is normal in size. There is mild concentric LVH. EF 60 to 65%. LV wall motion is normal. RV systolic function is normal. LA size is normal. RA size is normal. Dobutamine stress echo - negative for ischemia -Continue ASA, statin. Beta-wali contraindicated due to patient's chronic resting bradycardia. -Cardiology consulted, case discussed with Dr. Jeff (3) HTN (hypertension): -BP controlled, continue lisinopril/HCTZ (4) DM type 2 (diabetes mellitus, type 2): -Hgb A1c 6.1 01/2021 -Patient reports is currently diet controlled -NovoLog per protocol while hospitalized (5) DAVE (obstructive sleep apnea): -CPAP as per home settings (6) DVT prophylaxis: Total Time Total Time Spent Total Time Spent (In Minutes): 35 Discharge Plan Discharge Items Patient Disposition: Home - Self-Care Reason For Visit: CHEST PAIN Discharge Diagnosis: Chest pain Hx of CAD Activity: Per Instructions section Non-emergency contact: Primary Care Provider and Twisting Department End Finder Call non-emergency contact if: you have any medication questions and your symptoms worsen Follow-up/Referrals: Kumar Norman MD [Primary Care Provider] - (Date & Time 04/15/2021 3:00 PM Provider Kumar Norman MD [facility] ) Diet: Heart Healthy Addtl Attending Provider Instructions: Follow-up with your primary care doctor, the appointment was scheduled for you for April 15. 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 Recommend starting taking pantoprazole, and discuss this further with your primary care doctor. Pending Studies at Discharge: No Stand-Alone Forms: [facility], Smoking Cessation Medications and DC Order Prescriptions: New pantoprazole 40 mg tablet,delayed release (DR/EC) 40 mg PO DAILY Qty: 30 RF: 0 Continued Tecfidera 240 mg capsule,delayed release(DR/EC) 240 mg PO BID 30 Days Qty: 60 RF: 5 rosuvastatin 40 mg tablet 40 mg PO QAM RF: 0 escitalopram oxalate 10 mg tablet 10 mg PO QAM Qty: 90 RF: 3 nitroglycerin 0.4 mg Tablet, Sublingual 0.4 mg sublingual UD PRN (Reason: Chest Pain) Qty: 14 RF: 0 aspirin 81 mg Tablet,Delayed Release (Dr/Ec) 81 mg PO QAM RF: 0 tramadol 50 mg Tablet 50 mg PO Q6H PRN (Reason: Pain) RF: 0 gabapentin 300 mg Capsule 600 mg PO TID RF: 0 montelukast 10 mg Tablet 10 mg PO PM PRN (Reason: Allergy Symptoms) RF: 0 albuterol sulfate [ProAir HFA] 90 mcg/actuation Hfa Aerosol Inhaler 2 puff INHALATION QID PRN (Reason: Shortness Of Breath Or Wheezing) RF: 0 fluticasone propionate [Flonase Allergy Relief] 50 mcg/actuation [place],Suspension 2 spray INTRANASAL DAILY PRN (Reason: Congestion) RF: 0 cholecalciferol (vitamin D3) [Vitamin D3] 1,000 unit Tablet 1,000 unit PO QAM RF: 0 magnesium oxide 400 mg Capsule 400 mg PO QAM RF: 0 lisinopril-hydrochlorothiazide 20-12.5 mg tablet 2 tab PO DAILY RF: 0 Vitron-C 65 mg iron- 125 mg Tablet,Delayed Release (Dr/Ec) 1 tab PO QAM RF: 0 Discharge Orders: Discharge Order (Routine); Ordered 04/08/21 Ordered By: Danilo Oscar Admission Data Admit Date/Time: 04/07/21 11:22 Attending Provider: Danilo Oscar Admit Provider: Danilo Oscar Primary Care Provider: Kumar Norman Other Providers: Jett Jeff ; Danilo Oscar
--- NOTE | 2021-04-09 06:07 | Electrocardiogram Report ---
Test Reason : Blood Pressure : / mmHG Vent. Rate : 058 BPM Atrial Rate : 058 BPM P-R Int : 208 ms QRS Dur : 102 ms QT Int : 408 ms P-R-T Axes : 018 -11 000 degrees QTc Int : 400 ms Sinus bradycardia Otherwise normal ECG When compared with ECG of 07-APR-2021 09:48, No significant change was found Confirmed by Sonu Owen ([id number]) on 04/09/2021 6:07:24 AM Referred By: REFERRED SELF Confirmed By:Sonu Owen
== END 2021-04-08 15:26 | disposition home or self-care (01) ==
LOC: ED 09:36 → 2S 09:36